=== PATIENT | male | born 1935 | race Caucasian/White ===

== ENCOUNTER 2022-05-31 11:41 | Inpatient (IN) ==
[2022-05-31 12:44] LABS: Basophils # (auto) 0.04 K/uL (0-0.2); Basophils % (auto) 0.6 %; Eosinophils # (auto) 0.08 K/uL (0-0.50); Eosinophils % (auto) 1.2 %; Hematocrit (blood only) 36.6 % (40.1-51.0); Hemoglobin 12.2 g/dl (14.0-18.0); Immature Granulocytes # (auto) 0.07 K/uL (0.00-0.02); Mean Corpuscular Hemoglobin 31.2 pg (25.0-34.0); Mean Corpuscular Hgb Conc 33.3 g/dL (32.0-36.0); Mean Corpuscular Volume 93.6 fL (80.0-100.0); Mean Platelet Volume 10.2 fL (9.4-12.4); Monocytes # (auto) 0.48 K/uL (0.24-0.82); Monocytes % (auto) 6.9 %; Neutrophils # (auto) 5.35 K/uL (1.4-6.5); Neutrophils % (auto) 77.3 %; Platelet Count 255 K/uL (130-400); RDW Coefficient of Variation 14.3 % (11.5-14.5); RDW Standard Deviation 48.1 fL (36.4-46.3); Red Blood Count 3.91 M/uL (4.63-6.08); White Blood Count 6.92 K/ul (4.8-10.8)
--- NOTE | 2022-05-31 12:44 | XRay Report ---
XR foot LT min 3V routine CLINICAL HISTORY: heel wound. Assess for osteomyelitis. COMPARISON STUDY: None. FINDINGS: There is a 3 cm skin ulceration within the posterior heel. No underlying bony destruction t o suggest an osteomyelitis. Small plantar and posterior calcaneal spurs. Calcific densities at the di stal Achilles tendon and proximal plantar fascia which are likely chronic. No acute fracture or dislo cation within the left foot. The Lisfranc joint is intact. Mild degenerative changes are noted. IMPRESSION: 1. A 3 cm skin ulceration at the posterior heel. 2. No bony destruction to suggest an osteomyelitis. ACT 112: Negative or not required by law. Electronically signed by: Lefty Small M.D. 05/31/2022 12:42 PM
--- NOTE | 2022-05-31 13:06 | Electrocardiogram Report ---
Test Reason : Blood Pressure : / mmHG Vent. Rate : 098 BPM Atrial Rate : 119 BPM P-R Int : 000 ms QRS Dur : 078 ms QT Int : 352 ms P-R-T Axes : 000 -16 032 degrees QTc Int : 449 ms Poor data quality, interpretation may be adversely affected Atrial fibrillation Abnormal ECG No previous ECGs available Confirmed by Luiz Holbrook ([id number]) on 05/31/2022 1:06:11 PM Referred By: Confirmed By:Subhash Holbrook
--- NOTE | 2022-05-31 13:11 | Emergency Department Note ---
Impression & Plan Open wound of left heel, Atrial fibrillation with rapid ventricular response, COVID-19, Elevated troponin I level ED Provider Note Provider: Varghese Cortés MD DATE OF SERVICE: 05/31/2022 CHIEF COMPLAINT: Foot wound HISTORY OF PRESENT ILLNESS: Patient is a 87-year-old gentleman history of hype rtension and foot wound of the left heel presenting here today from home. EMS reports the patient has not been letting his daughter change his bandages to his left foot. Evidently was recently in a penitentiary that was closed and now living in town here with family. They report the patient had recent debridement or surgery on this left heel at the [facility] in [place]. Patient himself states that he was on antibiotics several weeks ago for this. Denies significant pain due to diabetic neuropathy. Patient states that he has not changed his dressings in several days. He states that his daughter has not been giving him the right medications at home particularly his quinapril. Patient states that he feels he needs to be placed. Denies significant chest pain or shortness of breath. No fevers reported. REVIEW OF SYSTEMS: A total of 10 review of systems was obtained and negative except as stated above in the HPI. PAST MEDICAL HISTORY: As noted above MEDICATIONS: Reviewed medication list with the patient SOCIAL HISTORY: Has been residing at home with his daughter PHYSICAL EXAM: GENERAL: alert and oriented in no acute distress on stretcher Head: normocephalic and atraumatic EYES: No injection, discharge or icterus. PERRL NECK: Trachea midline. Supple. ENT: Mucous membranes pink and moist. LUNGS: Airway patent. No retractions. Breath sounds clear HEART: Irregular regular tachycardic rate and rhythm. No chest wall tenderness ABDOMEN: Soft and non-tender, without guarding or rebound. SKIN: Acyanotic, warm, dry, without rashes EXTREMITIES: Without swelling, tenderness or deformity NEUROLOGICAL: No aphasia. No facial droop or slurred speech. Normal strength and tone in the extremities. Diminished sensation of bilateral legs below the knees. EKG: Atrial fibrillation [address] segment elevation with a QTC of 449. Baseline artifact but no clear ST depression. No priors available for comparison CONTINUOUS CARDIAC MONITORING: was ordered and showed a heart rate of 90s-120s bpm in atrial fibrillation Patient's laboratory studies and imaging reviewed. Differential includes Cellulitis, abscess, MRSA infection, DVT, necrotizing fasciitis, cardiac etiology, pulmonary etiology, as well as other pathologies. IMPRESSION/MEDICAL DECISION MAKING: Service culture from left heel wound was taken and cleaned with ChloraPrep and bandaged again. X-ray of the area per radiology does not show evidence of osteomyelitis. Basic labs including inflammatory markers were sent. Patient incidentally noted to be in atrial fibrillation with some RVR. Patient denies a history of this and does not appear to be on any rate control medications or anticoagulation. Given some IV metoprolol here. Patient incidentally is also noted be COVID-positive but not in any respiratory distress. Given dose of Zosyn for what appears to be some wound infection although its not horrible of the left foot. Mild inflammatory marker elevation of ESR and CRP. Troponin als o returned mildly elevated at 50 without priors for comparison. Again attempted rate control here as early as likely more demand and acute ACS. No available phone number for the daughter and patient does not want to return home with her and wants placed. Given his COVID with new onset atrial fibrillation as well as this foot wound feel that observation here with the need for placement would not be unreasonable given his care needs. Will defer anticoagulation to the inpatient team. DIAGNOSIS: Left heel wound infection, new onset atrial fibrillation RVR, COVID-19, elevated troponin DISPOSITION: Hospitalist will evaluate Patient was agreeable with this plan. Critical Care I have personally spent 33 minutes of critical care time in the direct management of this patient. This includes bedside care, interpretation of diagnostic studies, and testing, discussion with consultants, patient, and other required patient management activities. These 33 minutes is in excess of all separately billable procedures. Past Med/Surg History Medical History (Updated 05/31/22 @ 16:11 by Varghese Coréts M.D.) HTN (hypertension) Surgical History (Updated 05/31/22 @ 15:43 by REID Cartagena) Hx of bilateral hip replacements Social History Smoking Status: Never smoker Feels Safe at Home: Yes Allergies Allergies Allergy/AdvReac Type Severity Reaction Status Date / Time atorvastatin Allergy Unknown Unverified 05/31/22 14:45 Home Meds Home Medications Medication Instructions Recorded Confirmed Lactobacillus acidophilus 2 tab PO DAILY 05/31/22 05/31/22 amlodipine 2.5 mg tablet 2.5 mg PO DAILY 05/31/22 05/31/22 aspirin 81 mg tablet,delayed 81 mg PO DAILY 05/31/22 05/31/22 release finasteride 5 mg tablet 5 mg PO HS 05/31/22 05/31/22 gabapentin 300 mg capsule 600 mg PO HS 05/31/22 05/31/22 metoprolol succinate 50 mg 50 mg PO BID 05/31/22 05/31/22 tablet,extended release 24 hr Results & Data (ED) Vital Signs Vital Signs - 24 hr 05/31/22 11:50 05/31/22 12:05 05/31/22 13:30 Temperature 36.7 C Temperature Source Oral Pulse Rate 121 H Pulse Rate [Apical] 108 H 96 H Pulse Rhythm Regular Pulse Rhythm [Apical] Irregular Pulse Strength Normal Pulse Strength [Apical] Normal Respiratory Rate 20 18 16 Respiratory Effort / Characteristics Non-Labored Spontaneous Non-Labored Spontaneous Non-Labored Respiratory Depth Normal Normal Normal Respiratory Pattern Regular Regular Blood Pressure 138/51 L Blood Pressure [Right Arm] 158/101 H 138/85 Blood Pressure Mean 80 Blood Pressure Mean [Right Arm] 120 102 Blood Pressure Position Sitting Blood Pressure Position [Right Arm] Semi-fowlers Pulse Oximetry 99 99 99 Oxygen Delivery Method Room Air Room Air Room Air Sepsis Recent Fever Within 48 Hours No Sepsis New/Unexplained Change in Mental Status N/A Sepsis Action Taken by Nursing No Action Required 05/31/22 13:00 05/31/22 12:30 Temperature Temperature Source Pulse Rate Pulse Rate [Apical] 98 H 100 H Pulse Rhythm Pulse Rhythm [Apical] Pulse Strength Pulse Strength [Apical] Respiratory Rate 16 16 Respiratory Effort / Characteristics Respiratory Depth Respiratory Pattern Blood Pressure Blood Pressure [Right Arm] 123/86 148/81 H Blood Pressure Mean Blood Pressure Mean [Right Arm] 98 103 Blood Pressure Position Blood Pressure Position [Right Arm] Pulse Oximetry 99 98 Oxygen Delivery Method Room Air Room Air Sepsis Recent Fever Within 48 Hours Sepsis New/Unexplained Change in Mental Status Sepsis Action Taken by Nursing Laboratory Data Result diagrams: 05/31/22 12:21 05/31/22 12:21 Lab Results 05/31/22 05/31/22 05/31/22 Range/Units 12:21 12:21 12:21 WBC 6.92 (4.8-10.8) K/ul RBC 3.91 L (4.63-6.08) M/uL Hgb 12.2 L (14.0-18.0) g/dl Hct 36.6 L (40.1-51.0) % MCV 93.6 (80.0-100.0) fL MCH 31.2 (25.0-34.0) pg MCHC 33.3 (32.0-36.0) g/dL RDW Std Deviation 48.1 H (36.4-46.3) fL RDW Coeff of Drake 14.3 (11.5-14.5) % Plt Count 255 (130-400) K/uL MPV 10.2 (9.4-12.4) fL Immature Gran % (Auto) 1.0 % Neut % (Auto) 77.3 % Lymph % (Auto) 13.0 % [place] % (Auto) 6.9 % Eos % (Auto) 1.2 % Baso % (Auto) 0.6 % Neut # (Auto) 5.35 (1.4-6.5) K/uL Lymph # (Auto) 0.90 L (1.2-3.4) K/uL [place] # (Auto) 0.48 (0.24-0.82) K/uL Eos # (Auto) 0.08 (0-0.50) K/uL Baso # (Auto) 0.04 (0-0.2) K/uL Immature Gran # (Auto) 0.07 H (0.00-0.02) K/uL ESR (0-20) mm/hr Sodium 138 (136-145) mmol/L Potassium 3.8 (3.5-5.1) mmol/L Chloride 106 (98-107) mmol/L Carbon Dioxide 27 (21-32) mmol/L Anion Gap 5 (3-11) BUN 25 H (6-23) mg/dl Creatinine 1.00 (0.6-1.4) mg/dl Est Cr Clr Drug Dosing 61.1 ml/min Est GFR ( Amer) 78.1 ml/min Est GFR (Non-Af Amer) 67.4 ml/min BUN/Creatinine Ratio 25.0 H (10-20) Glucose 119 H (70-99(Fasting)) mg/dl Lactate 1.7 (0.4-2.0) mmol/L Calcium 8.8 (8.5-10.1) mg/dl Total Bilirubin 0.5 (0.2-1.0) mg/dl AST 16 (13-39) U/L ALT 13 (7-52) U/L Alkaline Phosphatase 78 (34-104) U/L Troponin I High Sens (0-20) pg/ml C-Reactive Protein 1.34 H (0-0.5) mg/dl Total Protein 6.2 (6.0-8.3) gm/dl Albumin 3.2 L (3.4-5.0) gm/dl Globulin 3.0 (2.5-4.0) gm/dl Albumin/Globulin Ratio 1.1 (0.9-2) TSH (0.300-4.500) uIu/ml SARS-CoV-2, RNA, NAAT (NEGATIVE) 05/31/22 05/31/22 05/31/22 Range/Units 12:21 12:21 12:21 WBC (4.8-10.8) K/ul RBC (4.63-6.08) M/uL Hgb (14.0-18.0) g/dl Hct (40.1-51.0) % MCV (80.0-100.0) fL MCH (25.0-34.0) pg MCHC (32.0-36.0) g/dL RDW Std Deviation (36.4-46.3) fL RDW Coeff of Drake (11.5-14.5) % Plt Count (130-400) K/uL MPV (9.4-12.4) fL Immature Gran % (Auto) % Neut % (Auto) % Lymph % (Auto) % [place] % (Auto) % Eos % (Auto) % Baso % (Auto) % Neut # (Auto) (1.4-6.5) K/uL Lymph # (Auto) (1.2-3.4) K/uL [place] # (Auto) (0.24-0.82) K/uL Eos # (Auto) (0-0.50) K/uL Baso # (Auto) (0-0.2) K/uL Immature Gran # (Auto) (0.00-0.02) K/uL ESR 45 H (0-20) mm/hr Sodium (136-145) mmol/L Potassium (3.5-5.1) mmol/L Chloride (98-107) mmol/L Carbon Dioxide (21-32) mmol/L Anion Gap (3-11) BUN (6-23) mg/dl Creatinine (0.6-1.4) mg/dl Est Cr Clr Drug Dosing ml/min Est GFR ( Amer) ml/min Est GFR (Non-Af Amer) ml/min BUN/Creatinine Ratio (10-20) Glucose (70-99(Fasting)) mg/dl Lactate (0.4-2.0) mmol/L Calcium (8.5-10.1) mg/dl Total Bilirubin (0.2-1.0) mg/dl AST (13-39) U/L ALT (7-52) U/L Alkaline Phosphatase (34-104) U/L Troponin I High Sens 50.1 H* (0-20) pg/ml C-Reactive Protein (0-0.5) mg/dl Total Protein (6.0-8.3) gm/dl Albumin (3.4-5.0) gm/dl Globulin (2.5-4.0) gm/dl Albumin/Globulin Ratio (0.9-2) TSH 1.197 (0.300-4.500) uIu/ml SARS-CoV-2, RNA, NAAT (NEGATIVE) 05/31/22 Range/Units 12:30 WBC (4.8-10.8) K/ul RBC (4.63-6.08) M/uL Hgb (14.0-18.0) g/dl Hct (40.1-51.0) % MCV (80.0-100.0) fL MCH (25.0-34.0) pg MCHC (32.0-36.0) g/dL RDW Std Deviation (36.4-46.3) fL RDW Coeff of Drake (11.5-14.5) % Plt Count (130-400) K/uL MPV (9.4-12.4) fL Immature Gran % (Auto) % Neut % (Auto) % Lymph % (Auto) % [place] % (Auto) % Eos % (Auto) % Baso % (Auto) % Neut # (Auto) (1.4-6.5) K/uL Lymph # (Auto) (1.2-3.4) K/uL [place] # (Auto) (0.24-0.82) K/uL Eos # (Auto) (0-0.50) K/uL Baso # (Auto) (0-0.2) K/uL Immature Gran # (Auto) (0.00-0.02) K/uL ESR (0-20) mm/hr Sodium (136-145) mmol/L Potassium (3.5-5.1) mmol/L Chloride (98-107) mmol/L Carbon Dioxide (21-32) mmol/L Anion Gap (3-11) BUN (6-23) mg/dl Creatinine (0.6-1.4) mg/dl Est Cr Clr Drug Dosing ml/min Est GFR ( Amer) ml/min Est GFR (Non-Af Amer) ml/min BUN/Creatinine Ratio (10-20) Glucose (70-99(Fasting)) mg/dl Lactate (0.4-2.0) mmol/L Calcium (8.5-10.1) mg/dl Total Bilirubin (0.2-1.0) mg/dl AST (13-39) U/L ALT (7-52) U/L Alkaline Phosphatase (34-104) U/L Troponin I High Sens (0-20) pg/ml C-Reactive Protein (0-0.5) mg/dl Total Protein (6.0-8.3) gm/dl Albumin (3.4-5.0) gm/dl Globulin (2.5-4.0) gm/dl Albumin/Globulin Ratio (0.9-2) TSH (0.300-4.500) uIu/ml SARS-CoV-2, RNA, NAAT POSITIVE A* (NEGATIVE) Administered Medications Discontinued Medications Piperacillin Sod/Tazobactam Sod (Zosyn) 4.5 gm in 120 mls @ 240 mls/hr IV NOW ONE Stop: 05/31/22 13:42 Last Infusion: 05/31/22 15:09 Dose: 0 mls/hr Documented By: Admin: 05/31/22 14:17 Dose: 240 mls/hr Documented By: MYKE Metoprolol Tartrate (Metoprolol Tartrate 1 Mg/Ml Vial) 5 mg IV NOW STA Stop: 05/31/22 13:14 Last Admin: 05/31/22 14:16 Dose: 5 mg Documented By: [facility] Imaging Data Radiologist's Impression: Foot X-Ray 05/31/22 12:03 XR foot LT min 3V routine CLINICAL HISTORY: heel wound. Assess for osteomyelitis. COMPARISON STUDY: None. FINDINGS: There is a 3 cm skin ulceration within the posterior heel. No underlying bony destruction to suggest an osteomyelitis. Small plantar and posterior calcaneal spurs. Calcific densities at the distal Achilles tendon and proximal plantar fascia which are likely chronic. No acute fracture or dislocation within the left foot. The Lisfranc joint is intact. Mild degenerative changes are noted. IMPRESSION: 1. A 3 cm skin ulceration at the posterior heel. 2. No bony destruction to suggest an osteomyelitis. ACT 112: Negative or not required by law. Electronically signed by: Lefty Small M.D. 05/31/2022 12:42 PM Discharge Plan Visit Data Chief Complaint: Wound Stated Complaint: WOUND ON HEEL ED Provider: Varghese Cortés Discharge Problem: Open wound of left heel, Atrial fibrillation with rapid ventricular response, COVID-19, Elevated troponin I level Patient Disposition: Admitted As Inpatient Discharge Instructions Interventions: ED Discharge Assessment Last Done: 05/31/22 15:05
[2022-05-31] MEDS ORDERED: METOPROLOL TARTRATE 1 MG/ML VIAL IV STA (13:13)
[2022-05-31] MEDS ORDERED: PIPERACILLIN/TAZOBACTAM 4.5 GM/120 ML BAG IV ONE (13:13)
[2022-05-31 13:15] LABS: Albumin Globulin Ratio 1.1 (0.9-2); Albumin Level 3.2 gm/dl (3.4-5.0); Bilirubin,Total 0.5 mg/dl (0.2-1.0); C Reactive Protein 1.34 mg/dl (0-0.5); Calcium 8.8 mg/dl (8.5-10.1); Creatinine Clr Calc Pharmacy 61.1 ml/min; Est GFR (African American) 78.1 ml/min; Est GFR (Non-African American) 67.4 ml/min; Potassium 3.8 mmol/L (3.5-5.1); Total Protein 6.2 gm/dl (6.0-8.3)
[2022-05-31] MEDS ORDERED: HEPARIN SODIUM/DEXTROSE 25,000 UNITS/500 ML BAG IV SCH (15:08)
[2022-05-31] MEDS ORDERED: HEPARIN SOD (PORCINE) 1000 UNIT/ML IV ONE (15:08)
[2022-05-31] MEDS ORDERED: Heparin IV Adult Wt-Based Standard WITH Bolus Protocol IV SCH (15:12)
--- NOTE | 2022-05-31 15:49 | History & Physical Report ---
Date of Service May 31, 2022 Assessment & Plan (1) Atrial fibrillation with rapid ventricular response: Plan: Admit to telemetry Patient recently admitted to [facility] and was discharged to be cared for by his daughter who lives locally. Records requested from [facility] and [facility] where patient received care prior to going to [facility]. Patient states he does not like staying with his daughter and wants to go to a m[facility] to be closer to his in [place], [place]. In the ED, patient found to be in A. fib with RVR. No prior history of. Received metoprolol 5 mg IV in the ED. Patient prescribed metoprolol succinate 50 mg twice daily, unclear if he has been taking. Will change to metoprolol tartrate 25 mg q6h and titrate accordingly. [id number] score 3, will start IV heparin Echo Cardio consult (2) Open wound of left heel: Plan: Per the staff at [facility], patient had a left heel wound while at their facility Patient states he had an MRI of his left heel a couple of weeks ago through the [facility] - records requested. Seems to have had a debridement done last week at the [facility]. No signs of osteo on XR today Wound does not appear to be infected, patient is afebrile, no leukocytosis Received IV Zosyn in the ED, will continue with IV cefazolin for now Obtain culture Podiatry and wound care nurse consult (3) COVID-19: Plan: Per the staff at [facility], patient tested positive for COVID-19 on 05/06 however this was via rapid in-house test. No documented lab result available. Patient continues to test positive for COVID-19 today, currently asymptomatic (4) Elevated troponin I level: Plan: HS trop 50.1 Likely due to demand ischemia from A. fib RVR No reports of chest pain EKG does not show any acute ST changes Continue to trend (5) HTN (hypertension): Plan: BP controlled, continue amlodipine Metoprolol as above (6) Neuropathy: Plan: Continue gabapentin Per the staff at [facility], patient was undergoing nerve conduction studies to evaluate for his nonambulatory state Records requested (7) DVT prophylaxis: Plan: On IV heparin (8) Discharge planning issues: Plan: Patient recently admitted to [facility] after being admitted to [facility]. Previous care was obtained through the [facility]. Records have been requested. Patient was discharged from [facility] to be cared for by his daughter who lives locally. She did not accompany the patient to the ED today and no phone number has been provided. Patient states that his , Sabrina, lives in [facility]. Phone number [phone]. I attempted to call her however there was no answer. Patient states that he would like to return to a m[facility] closer to his . I contacted [facility] to obtain history and they stated that they likely would be able to accept the patient back to their facility. Admission coordinator is Ana Pagan, extension [phone]. Admission and Anticipated Discharge Date Admission Date: May 31, 2022 History of Present Illness Chief Complaint: Left heel wound Primary Care Provider: HUMBERTO PCP 87 year old male with PMH HTN, bedbound status, neuropathy, left heel wound, BPH, and other problems listed below who presents to the ED with left heel wound. There are no outpatient records available to me at this time. According to the patient, he was admitted to [facility] due to inability to care for himself. I spoke to the staff at [facility] who stated the patient was bedbound and lift dependent. He was being worked up for neuropathy of the lower extremities as a cause for his ambulatory dysfunction. He also had a left heel wound while he was there and was being seen by wound care. The plan was to transition the patient to long-term care at [facility] however patient's daughter arrived on 05/10 and stated that she wanted to take the patient home with her to care for him. The staff at [facility] state that the patient tested positive for COVID-19 on 05/06 via rapid test. Patient states that he does not like staying with his daughter. He would like to go back to a mcf[facility] that is closer to his who is in [facility]. It seems as though patient had debridement of his left heel wound at the [facility] last week. Patient was placed on a course of antibiotics however patient reports that he made him nauseous, therefore they were discontinued. Patient especially offers no complaints today. He denies chest pain, palpitations, shortness of breath. No lightheadedness, dizziness, diaphoresis, syncopal events. He denies abdominal pain, nausea, vomiting, diarrhea. No fevers or chills. Denies urinary symptoms. In the ED, patient was found to be in atrial fibrillation with RVR. Labs show HS troponin 50.1, otherwise unremarkable. Patient tested positive for COVID-19. No signs of osteomyelitis on left heel x-ray. Patient was given IV metoprolol 5 mg, IV Zosyn. Allergies Allergy/AdvReac Type Severity Reaction Status Date / Time atorvastatin Allergy Unknown Unverified 05/31/22 14:45 Home Medications Medication Instructions Recorded Confirmed Type Lactobacillus acidophilus 2 tab PO DAILY 05/31/22 05/31/22 History amlodipine 2.5 mg tablet 2.5 mg PO DAILY 05/31/22 05/31/22 History aspirin 81 mg tablet,delayed 81 mg PO DAILY 05/31/22 05/31/22 History release finasteride 5 mg tablet 5 mg PO HS 05/31/22 05/31/22 History gabapentin 300 mg capsule 600 mg PO HS 05/31/22 05/31/22 History metoprolol succinate 50 mg 50 mg PO BID 05/31/22 05/31/22 History tablet,extended release 24 hr Past Med/Surg History Medical History HTN (hypertension) Neuropathy Surgical History Hx of bilateral hip replacements Family History (Updated 05/31/22 @ 16:26 by REID Cartagena) Mother Lymphoma Social History (Updated 05/31/22 @ 16:32 by REID Cartagena) Smoking Status: Never smoker Hx Alcohol Use: Yes Alcohol type: beer Alcohol Intake Frequency: Monthly or Less Feels Safe at Home: Yes Review of Systems Review of Systems: ROS per HPI, all other systems reviewed and negative Physical Exam Physical Exam: please refer to Dr. Espino's addendum for physical exam Results & Data Results & Data ([facility]) Vital Signs (Past 12 Hours) Vital Signs Temp Pulse Pulse Resp BP BP Pulse Ox 05/31/22 15:08 36.3 C L 115 H 18 149/91 H 98 05/31/22 14:16 117 H 132/92 05/31/22 14:15 117 H 20 132/92 99 05/31/22 12:30 100 H 16 148/81 H 98 05/31/22 13:00 98 H 16 123/86 99 05/31/22 13:30 96 H 16 138/85 99 05/31/22 12:05 108 H 18 158/101 H 99 05/31/22 11:50 36.7 C 121 H 20 138/51 L 99 O2 Del Method 05/31/22 15:08 Room Air 05/31/22 14:16 05/31/22 14:15 Room Air 05/31/22 12:30 Room Air 05/31/22 13:00 Room Air 05/31/22 13:30 Room Air 05/31/22 12:05 Room Air 05/31/22 11:50 Room Air Laboratory Results Short CBC 05/31/22 Range/Units 12:21 WBC 6.92 (4.8-10.8) K/ul Hgb 12.2 L (14.0-18.0) g/dl Hct 36.6 L (40.1-51.0) % Plt Count 255 (130-400) K/uL BMP 05/31/22 12:21 Sodium 138 Potassium 3.8 Chloride 106 Carbon Dioxide 27 BUN 25 H Creatinine 1.00 Glucose 119 H Calcium 8.8 Liver Function 05/31/22 Range/Units 12:21 Total Bilirubin 0.5 (0.2-1.0) mg/dl AST 16 (13-39) U/L ALT 13 (7-52) U/L Alkaline Phosphatase 78 (34-104) U/L Albumin 3.2 L (3.4-5.0) gm/dl Diagnostic Findings Foot X-Ray 05/31/22 12:03 XR foot LT min 3V routine CLINICAL HISTORY: heel wound. Assess for osteomyelitis. COMPARISON STUDY: None. FINDINGS: There is a 3 cm skin ulceration within the posterior heel. No underlying bony destruction to suggest an osteomyelitis. Small plantar and posterior calcaneal spurs. Calcific densities at the distal Achilles tendon and proximal plantar fascia which are likely chronic. No acute fracture or dislocation within the left foot. The Lisfranc joint is intact. Mild degenerative changes are noted. IMPRESSION: 1. A 3 cm skin ulceration at the posterior heel. 2. No bony destruction to suggest an osteomyelitis. ACT 112: Negative or not required by law. Electronically signed by: Lefty Small M.D. 05/31/2022 12:42 PM Code Status & VTE Plan VTE Prophylaxis Plan VTE Prophylaxis will be ordered: No Supervising Physician Co-Signing Physician Notes Attending addendum: The patient was seen and examined in telemetry unit and in the COVID room He denies any symptoms but tells me that he has been here for most likely placement and to go to a mcfp/rehab facility Did not have any complaint and no symptoms of chest pain, palpitation or shortness of breath No fever and or chills On examination No apparent distress at rest Hemodynamically stable but noted to have tachycardia of 115/min Chest-clear to auscultate bilaterally Heart-S1-S2, irregularly irregular Abdomen-benign Extremities-trace to no edema bilaterally but left heel has a deep wound about stage III with tissue that may need debridement 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
[2022-05-31] MEDS ORDERED: HEPARIN IV BOLUS 7,000 UNITS in SYRINGE 0 ML IV ONE (16:00)
[2022-05-31] MEDS ORDERED: MELATONIN 3 MG TAB PO PRN (19:54)
[2022-05-31] MEDS ORDERED: METOPROLOL TARTRATE 25 MG TAB PO SCH (20:00)
[2022-05-31] MEDS: ACETAMINOPHEN 325 MG TAB PO PRN (20:33)
[2022-05-31] MEDS: GABAPENTIN 600 MG TAB PO SCH (20:35)
[2022-05-31] MEDS: FINASTERIDE 5 MG TAB PO SCH (20:35)
[2022-05-31] MEDS: METOPROLOL TARTRATE 25 MG TAB PO SCH (20:36)
[2022-05-31] MEDS: ceFAZolin 1000MG 1,000 MG/7.5 ML SYR IV SCH (21:04)
[2022-05-31] MEDS ORDERED: MELATONIN 3 MG TAB PO ONE ×2 (23:36→23:48)
[2022-06-01 00:08] LABS: Partial Thromboplastin Ratio > 5.1
[2022-06-01 00:28] LABS: Partial Thromboplastin Time > 139.0 Seconds (21.0-31.0)
[2022-06-01] MEDS: METOPROLOL TARTRATE 25 MG TAB PO SCH ×2 (02:21→08:15)
[2022-06-01 04:26] LABS: Hematocrit (blood only) 34.6 % (40.1-51.0); Hemoglobin 11.2 g/dl (14.0-18.0); Mean Corpuscular Hemoglobin 30.6 pg (25.0-34.0); Mean Corpuscular Hgb Conc 32.4 g/dL (32.0-36.0); Mean Corpuscular Volume 94.5 fL (80.0-100.0); Mean Platelet Volume 9.9 fL (9.4-12.4); Platelet Count 221 K/uL (130-400); RDW Coefficient of Variation 14.2 % (11.5-14.5); RDW Standard Deviation 48.8 fL (36.4-46.3); Red Blood Count 3.66 M/uL (4.63-6.08); White Blood Count 6.42 K/ul (4.8-10.8)
[2022-06-01 04:47] LABS: BUN Creatinine Ratio 21.9 (10-20); Calcium 8.5 mg/dl (8.5-10.1); Creatinine Clr Calc Pharmacy 53.6 ml/min; Est GFR (African American) 66.6 ml/min; Est GFR (Non-African American) 57.5 ml/min
[2022-06-01 04:52] LABS: Partial Thromboplastin Time 55.5 Seconds (21.0-31.0)
[2022-06-01] MEDS: ceFAZolin 1000MG 1,000 MG/7.5 ML SYR IV SCH ×3 (05:05→21:04)
--- NOTE | 2022-06-01 07:26 | Electrocardiogram Report ---
Test Reason : Blood Pressure : / mmHG Vent. Rate : 071 BPM Atrial Rate : 340 BPM P-R Int : 000 ms QRS Dur : 082 ms QT Int : 424 ms P-R-T Axes : 000 -11 050 degrees QTc Int : 460 ms Atrial fibrillation Abnormal ECG Confirmed by Luiz Holbrook ([id number]) on 06/01/2022 7:25:50 AM Referred By: REFERRED SELF Confirmed By:Subhash Holbrook
[2022-06-01] MEDS: amLODIPine BESYLATE 5 MG TAB PO SCH (08:15)
[2022-06-01] MEDS ORDERED: MAGNESIUM HYDROXIDE SUSP 30 ML UDC PO ONE (08:45)
--- NOTE | 2022-06-01 10:04 | Cardiology Consultation ---
Date of Consultation June 01, 2022 Assessment & Plan (1) Atrial fibrillation with rapid ventricular response: (2) Open wound of left heel: (3) Elevated troponin I level: (4) Neuropathy: Plan It is uncertain as to the how long this patient has been in atrial fibrillation. It is also uncertain as to whether he was taking his metoprolol as an outpatient. In any case, I would place him back on metoprolol succinate 50 mg twice daily. His borderline elevation in the high-sensitivity troponin is most likely due to demand ischemia. I do not believe that this is ACS. I would recommend the patient be started on Eliquis at a reduced dose of 2.5 mg twice daily. I think it is best that we go with rate control and not rhythm control in this elderly gentleman. He also has a very strong desire to return to the residential in [place] and I think we should honor those wishes. His has a history of cardiac problems and has a interior design faculty member in [place] that he can follow-up with. History of Present Illness Attending Physician: Woodrow Espino MD History of Present Illness This is an 87-year-old male patient who has had some difficulty walking due to neuropathy and developed a ulcer of his heel. He was in a residential in [facility] where he lives with his elderly . He has lived there his whole life. He came to [place] to live with his daughter who agreed to take care of him until he was ready to matriculate home. According to the patient, he has had no prior history of heart disease. No history of myocardial infarction, angina, congestive heart failure or cardiac arrhythmias. Upon arrival to this hospital he was noted to be in atrial fibrillation with RVR. He was given metoprolol which promptly improved his heart rate. He was started on heparin and admitted to the hospital. There is some question as to whether the patient was taking his metoprolol as directed. It is also unknown how long he is actually been in the atrial fibrillation. He denies shortness of breath or chest pain. Echocardiogram completed yesterday while in atrial fibrillation the patient has dilation of both the right and left atrium. There is moderate mitral regurgitation with preserved left and right ventricular systolic function. Allergies Allergy/AdvReac Type Severity Reaction Status Date / Time atorvastatin Allergy Unknown Unverified 05/31/22 14:45 Home Medications Medication Instructions Recorded Confirmed Type Lactobacillus acidophilus 2 tab PO DAILY 05/31/22 05/31/22 History amlodipine 2.5 mg tablet 2.5 mg PO DAILY 05/31/22 05/31/22 History aspirin 81 mg tablet,delayed 81 mg PO DAILY 05/31/22 05/31/22 History release finasteride 5 mg tablet 5 mg PO HS 05/31/22 05/31/22 History gabapentin 300 mg capsule 600 mg PO HS 05/31/22 05/31/22 History metoprolol succinate 50 mg 50 mg PO BID 05/31/22 05/31/22 History tablet,extended release 24 hr Patient History Medical History HTN (hypertension) Neuropathy Surgical History Hx of bilateral hip replacements Family History Mother Lymphoma Social History Smoking Status: Unknown if ever smoked Hx Alcohol Use: Yes Alcohol type: beer Alcohol Intake Frequency: Monthly or Less Hx Substance Use: No Preferred Language: Sami Communication Ability: Effective Assistant In Nursing Required: No Beliefs That Will Affect Care: None Current Living Situation Comment: Lives with daughter but does not want to live with her anymore Feels Safe at Home: Yes Assistive Devices: Wheelchair Review of Systems Review of Systems: Review of Systems: See HPI for pertinent positives. All other 10 point review of systems are negative. Physical Exam Physical Exam: General: no acute distress and stated age Head: normocephalic, no masses, lesions, tenderness or abnormalities Eyes: conjunctiva are pink and non-injected, sclera clear Neck: supple, no adenopathy, no bruits, normal jugular venous pulse, no hepatojugular reflux Chest: normal shape and normal respiratory effort Lungs: clear to auscultation and percussion Cardiac Exam: - irregular rate & rhythm, no murmurs gallops or rubs - normal S1, normal S2 Pulses: 2(+) throughout Abdomen: abdomen soft, non-tender, no abnormal masses and no hepatosplenomegaly Musculoskeletal: no gait disturbance, no joint inflammation, no deforming arthritis Extremities: no edema and no cyanosis Neuro: grossly normal exam Results & Data ([facility]) Vital Signs (Past 12 Hours) Vital Signs Temp Pulse Pulse Resp BP Pulse Ox O2 Del Method 06/01/22 07:45 36.5 C 85 18 116/75 96 Room Air 06/01/22 07:26 70 06/01/22 02:31 36.5 C 83 18 109/66 95 Room Air 06/01/22 00:00 77 05/31/22 23:11 36.7 C 64 18 106/71 97 Room Air Laboratory Results Laboratory Results - last 24 hr 05/31/22 05/31/22 05/31/22 12:21 12:21 12:21 WBC 6.92 RBC 3.91 L Hgb 12.2 L Hct 36.6 L MCV 93.6 MCH 31.2 MCHC 33.3 RDW Std Deviation 48.1 H RDW Coeff of Drake 14.3 Plt Count 255 MPV 10.2 Immature Gran % (Auto) 1.0 Neut % (Auto) 77.3 Lymph % (Auto) 13.0 [place] % (Auto) 6.9 Eos % (Auto) 1.2 Baso % (Auto) 0.6 Neut # (Auto) 5.35 Lymph # (Auto) 0.90 L [place] # (Auto) 0.48 Eos # (Auto) 0.08 Baso # (Auto) 0.04 Immature Gran # (Auto) 0.07 H ESR APTT PTT Ratio Sodium 138 Potassium 3.8 Chloride 106 Carbon Dioxide 27 Anion Gap 5 BUN 25 H Creatinine 1.00 Est Cr Clr Drug Dosing 61.1 Est GFR ( Amer) 78.1 Est GFR (Non-Af Amer) 67.4 BUN/Creatinine Ratio 25.0 H Glucose 119 H Lactate 1.7 Calcium 8.8 Total Bilirubin 0.5 AST 16 ALT 13 Alkaline Phosphatase 78 Troponin I High Sens C-Reactive Protein 1.34 H Total Protein 6.2 Albumin 3.2 L Globulin 3.0 Albumin/Globulin Ratio 1.1 TSH SARS-CoV-2, RNA, NAAT 05/31/22 05/31/22 05/31/22 12:21 12:21 12:21 WBC RBC Hgb Hct MCV MCH MCHC RDW Std Deviation RDW Coeff of Drake Plt Count MPV Immature Gran % (Auto) Neut % (Auto) Lymph % (Auto) [place] % (Auto) Eos % (Auto) Baso % (Auto) Neut # (Auto) Lymph # (Auto) [place] # (Auto) Eos # (Auto) Baso # (Auto) Immature Gran # (Auto) ESR 45 H APTT PTT Ratio Sodium Potassium Chloride Carbon Dioxide Anion Gap BUN Creatinine Est Cr Clr Drug Dosing Est GFR ( Amer) Est GFR (Non-Af Amer) BUN/Creatinine Ratio Glucose Lactate Calcium Total Bilirubin AST ALT Alkaline Phosphatase Troponin I High Sens 50.1 H* C-Reactive Protein Total Protein Albumin Globulin Albumin/Globulin Ratio TSH 1.197 SARS-CoV-2, RNA, NAAT 05/31/22 05/31/22 05/31/22 12:30 17:52 23:31 WBC RBC Hgb Hct MCV MCH MCHC RDW Std Deviation RDW Coeff of Drake Plt Count MPV Immature Gran % (Auto) Neut % (Auto) Lymph % (Auto) [place] % (Auto) Eos % (Auto) Baso % (Auto) Neut # (Auto) Lymph # (Auto) [place] # (Auto) Eos # (Auto) Baso # (Auto) Immature Gran # (Auto) ESR APTT > 139.0 H* PTT Ratio > 5.1 Sodium Potassium Chloride Carbon Dioxide Anion Gap BUN Creatinine Est Cr Clr Drug Dosing Est GFR ( Amer) Est GFR (Non-Af Amer) BUN/Creatinine Ratio Glucose Lactate Calcium Total Bilirubin AST ALT Alkaline Phosphatase Troponin I High Sens 61.8 H* D C-Reactive Protein Total Protein Albumin Globulin Albumin/Globulin Ratio TSH SARS-CoV-2, RNA, NAAT POSITIVE A* 05/31/22 06/01/22 06/01/22 23:34 04:14 04:14 WBC 6.42 RBC 3.66 L Hgb 11.2 L Hct 34.6 L MCV 94.5 MCH 30.6 MCHC 32.4 RDW Std Deviation 48.8 H RDW Coeff of Drake 14.2 Plt Count 221 MPV 9.9 Immature Gran % (Auto) Neut % (Auto) Lymph % (Auto) [place] % (Auto) Eos % (Auto) Baso % (Auto) Neut # (Auto) Lymph # (Auto) [place] # (Auto) Eos # (Auto) Baso # (Auto) Immature Gran # (Auto) ESR APTT PTT Ratio Sodium 137 Potassium 4.0 Chloride 106 Carbon Dioxide 28 Anion Gap 3 BUN 25 H Creatinine 1.14 Est Cr Clr Drug Dosing 53.6 Est GFR ( Amer) 66.6 Est GFR (Non-Af Amer) 57.5 BUN/Creatinine Ratio 21.9 H Glucose 100 H Lactate Calcium 8.5 Total Bilirubin AST ALT Alkaline Phosphatase Troponin I High Sens 56.8 H* C-Reactive Protein Total Protein Albumin Globulin Albumin/Globulin Ratio TSH SARS-CoV-2, RNA, NAAT 06/01/22 04:14 WBC RBC Hgb Hct MCV MCH MCHC RDW Std Deviation RDW Coeff of Drake Plt Count MPV Immature Gran % (Auto) Neut % (Auto) Lymph % (Auto) [place] % (Auto) Eos % (Auto) Baso % (Auto) Neut # (Auto) Lymph # (Auto) [place] # (Auto) Eos # (Auto) Baso # (Auto) Immature Gran # (Auto) ESR APTT 55.5 H* PTT Ratio 2.0 Sodium Potassium Chloride Carbon Dioxide Anion Gap BUN Creatinine Est Cr Clr Drug Dosing Est GFR ( Amer) Est GFR (Non-Af Amer) BUN/Creatinine Ratio Glucose Lactate Calcium Total Bilirubin AST ALT Alkaline Phosphatase Troponin I High Sens C-Reactive Protein Total Protein Albumin Globulin Albumin/Globulin Ratio TSH SARS-CoV-2, RNA, NAAT Medications Administered Current Inpatient Medications Acetaminophen (Acetaminophen 325 Mg Tab) 650 mg PO Q4H PRN PRN Reason: Pain or Fever Stop: 06/30/22 15:07 Last Admin: 05/31/22 20:33 Dose: 650 mg Amlodipine Besylate (Amlodipine Besylate 5 Mg Tab) 2.5 mg PO DAILY [facility] Stop: 07/01/22 08:59 Last Admin: 06/01/22 08:15 Dose: 2.5 mg Finasteride (Finasteride 5 Mg Tab) 5 mg PO HS [facility] Stop: 06/30/22 20:59 Last Admin: 05/31/22 20:35 Dose: 5 mg Gabapentin (Gabapentin 600 Mg Tab) 600 mg PO HS [facility] Stop: 06/30/22 20:59 Last Admin: 05/31/22 20:35 Dose: 600 mg Cefazolin Sodium (Ancef 1000mg) 1,000 mg in 7.5 mls @ 2.5 mls/min IV Q8H [facility] Stop: 06/07/22 21:59 Last Admin: 06/01/22 05:05 Dose: 2.5 mls/min Heparin Sodium/Dextrose (Heparin Sodium/Dextrose) 25,000 units in 500 mls @ 22 mls/hr IV .[id number] [facility]; Protocol Stop: 06/30/22 15:07 Last Titration: 06/01/22 05:00 Dose: 1,100 units/hr, 22 mls/hr Melatonin (Melatonin 3 Mg Tab) 6 mg PO HS PRN PRN Reason: Sleep Stop: 06/30/22 19:53 Metoprolol Succinate (Metoprolol Succ 50mg Ext Rel Tab) 50 mg PO BID [facility] Stop: 07/01/22 20:59 Psyllium Hydrophilic Mucilloid (Psyllium Or Guar Gum Fiber Powder Packet) 1 pkt PO QAM [facility] Stop: 07/01/22 08:59 (1) Open wound of left heel Encounter type: initial encounter Qualified Code(s): S91.302A - Unspecified open wound, left foot, initial encounter
[2022-06-01] MEDS: PSYLLIUM or GUAR GUM FIBER POWDER PACKET PO SCH (10:32)
[2022-06-01] MEDS ORDERED: APIXABAN 2.5 MG TAB PO SCH (11:00)
--- NOTE | 2022-06-01 12:43 | Orthopedic Consultation ---
Date of Consultation June 01, 2022 Assessment & Plan (1) Open wound of left heel: Patient seen, evaluated, and treated. X-rays reviewed showing no involvement. I examined the patient for an ulcer that has been resistant. A thorough evaluation of the wound was done in detail. The left and right heel were note currently off loaded upon examination. Manners in which pressure reduction could be achieved were investigated and initiated. Off-loading is a critical part of this patient's management. I did order an ortho wedge off loading device and will be delivered from OR per nursing. A pillow was placed under legs until arrival. After evaluation of the patient and wound status and characteristics, it was decided that the wound would be debrided. Please see procedure note. To offload or remove pressure to the wound is essential. Foam dressing applied. German ordered for daily application with dressing changes. Today's procedure is an excisional debridement of deep tissue. There is a moderate amount of serosanguineous exudate draining from the ulcer. The ulcer base is described as containing has pink granulation. Necrotic or devitalized tissue is estimated to be present in approximately 40% of the pressure ulcer bed. The ulcer has been exposed full-thickness tissue. I have informed the patient of the risks and benefit of this procedure and they have had the opportunity to ask questions. Appropriate consent has been obtained. The patient refused site marking. The area was prepped and draped in usual aseptic manner. The procedure was performed and a clean field. I debrided the wound sharply with a sterile #15 blade and necrotic tissue was excised down to and including subcutaneous tissue. Bleeding was minimal and hemostasis was achieved using pressure. The patient tolerated procedure and anesthesia well. The patient was educated regarding the signs and symptoms of infection, such as purulent drainage, edema, cellulitis, and significant pain, and to notify healthcare personnel for any of these things occur. Postprocedure no increased pain. (2) Neuropathy: History of Present Illness Attending Physician: Woodrow Espino MD History of Present Illness Patient is a pleasant, covid (+), 87 year old male seen lying comfortably in bed. Patient PMH positive for HTN, bedbound status, neuropathy, left heel wound, BPH. Patient was seen in [facility] ED for worsening left heel wound yesterday. Patient social history obtained from admitting notes. He was recently transferred from [facility], to stay with his daughter locally who did not accompany Patient to ED and has been unavailable to reach via phone. Patient was being worked up for neuropathy of the lower extremities as a cause for his ambulatory dysfunction. Patient states he had debridement of his left heel wound at the [facility] last week. Patient was placed on a course of antibiotics however patient reports that he made him nauseous, therefore they were discontinued. Patient received IV Zosyn in the ED, then tranisitioned to IV cefazolin. Awaiting wound culture results. No signs of osteomyelitis on left heel x-ray. Allergies Allergy/AdvReac Type Severity Reaction Status Date / Time atorvastatin Allergy Unknown Unverified 05/31/22 14:45 Home Medications Medication Instructions Recorded Confirmed Type Lactobacillus acidophilus 2 tab PO DAILY 05/31/22 05/31/22 History amlodipine 2.5 mg tablet 2.5 mg PO DAILY 05/31/22 05/31/22 History aspirin 81 mg tablet,delayed 81 mg PO DAILY 05/31/22 05/31/22 History release finasteride 5 mg tablet 5 mg PO HS 05/31/22 05/31/22 History gabapentin 300 mg capsule 600 mg PO HS 05/31/22 05/31/22 History metoprolol succinate 50 mg 50 mg PO BID 05/31/22 05/31/22 History tablet,extended release 24 hr Patient History Medical History HTN (hypertension) Neuropathy Surgical History Hx of bilateral hip replacements Family History Mother Lymphoma Social History Smoking Status: Unknown if ever smoked Hx Alcohol Use: Yes Alcohol type: beer Alcohol Intake Frequency: Monthly or Less Hx Substance Use: No Preferred Language: Polish Communication Ability: Effective Senior Analyst Programmer Required: No Beliefs That Will Affect Care: None Current Living Situation Comment: Lives with daughter but does not want to live with her anymore Feels Safe at Home: Yes Assistive Devices: Wheelchair Review of Systems Review of Systems: All systems reviewed & are unremarkable except as noted in HPI & below Physical Exam Physical Exam: INTEGUMENT: Atrophic changes noted to legs and feet. No signs or symptoms of infection were noted or reported. VASCULAR: Capillary refill time within normal limits. Absence of leg and pedal hair. Proximal distal cooling within normal limits. MUSCULOSKELETAL: No gross deformity. Digital contractures 2 through 5 adductovarus fifth toes. NEUROLOGIC: Absent epicritic sensation CONSTITUTIONAL: Patient denies constitutional symptoms PSYCH: Normal affect and demeanor Focused Exam: Wound location: Left retro calcaneal heel Wound base color and depth: Full thickness into subcutaneous tissue Wound size (cm): roughly 4.5 x 4.5 x 0.5 cm Odor: no malodor Drainage: moderate serous Undermining: none Borders: slightly macerated Results & Data ([facility]) Vital Signs (Past 12 Hours) Vital Signs Temp Pulse Pulse Resp BP Pulse Ox O2 Del Method 06/01/22 11:40 36.4 C L 77 18 111/68 99 Room Air 06/01/22 07:45 36.5 C 85 18 116/75 96 Room Air 06/01/22 07:26 70 06/01/22 02:31 36.5 C 83 18 109/66 95 Room Air (1) Open wound of left heel Encounter type: initial encounter Qualified Code(s): S91.302A - Unspecified open wound, left foot, initial encounter
--- NOTE | 2022-06-01 14:28 | Hospitalist Progress Note ---
Date of Service June 01, 2022 Assessment & Plan (1) Atrial fibrillation with rapid ventricular response: Plan: Admit to telemetry Patient recently admitted to [facility] [place] and was discharged to be cared for by his daughter who lives locally. Records requested from [facility] and [facility] where patient received care prior to going to [facility]. Patient states he does not like staying with his daughter and wants to go to a longterm to be closer to his in [place], [place]. In the ED, patient found to be in A. fib with RVR. No prior history of. Received metoprolol 5 mg IV in the ED. Patient prescribed metoprolol succinate 50 mg twice daily, unclear if he has been taking. Will change to metoprolol tartrate 25 mg q6h and titrate accordingly. [id number] score 3, will start IV heparin Echo of the heart showedLV is normal in size with normal systolic function. EF 50 to 55%, RV systolic function is normal, left atrium is moderately dilated, right atrium is moderately dilated, and there is moderate mitral regurgitation Patient denies any symptoms of palpitation and/or chest pain Appreciate cardiology input and recommendation We will continue with beta-teri and will give Eliquis on discharge (2) Open wound of left heel: Plan: Per the staff at [facility], patient had a left heel wound while at their facility Patient states he had an MRI of his left heel a couple of weeks ago through the [facility] - records requested. Seems to have had a debridement done last week at the [facility]. No signs of osteo on XR today Wound does not appear to be infected, patient is afebrile, no leukocytosis Received IV Zosyn in the ED, will continue with IV cefazolin for now Obtain culture Podiatry and wound care nurse consult Does not seems to be spreading infection (3) COVID-19: Plan: Per the staff at [facility], patient tested positive for COVID-19 on 05/06 however this was via rapid in-house test. No documented lab result available. Patient continues to test positive for COVID-19 today, currently asymptomatic No COVID treatment is required and the patient remains totally asymptomatic (4) Elevated troponin I level: Plan: HS trop 50.1 Likely due to demand ischemia from A. fib RVR No reports of chest pain EKG does not show any acute ST changes Continue to trend-no ACS Elevated troponin due to demand ischemia (5) HTN (hypertension): Plan: BP controlled, continue amlodipine Metoprolol as above (6) Neuropathy: Plan: Continue gabapentin Per the staff at [facility], patient was undergoing nerve conduction studies to evaluate for his nonambulatory state Records requested (7) DVT prophylaxis: Plan: On IV heparin (8) Discharge planning issues: Plan: Patient recently admitted to [facility] [place] after being admitted to [facility]. Previous care was obtained through the [facility]. Records have been requested. Patient was discharged from [facility] to be cared for by his daughter who lives locally. She did not accompany the patient to the ED today and no phone number has been provided. Patient states that his , Sabrina, lives in [facility]. Phone number [phone]. I attempted to call her however there was no answer. Patient states that he would like to return to a longterm closer to his . I contacted the [facility] [place] to obtain history and they stated that they likely would be able to accept the patient back to their facility. Admission coordinator is Ana Pagan, extension [phone]. Admission and Anticipated Discharge Date Admission Date: May 31, 2022 Subjective 06/01/2022 The patient was seen and examined in telemetry unit and in the COVID room He remains stable and denies any symptoms He wants to go to longterm Review of Systems Review of Systems: All systems reviewed and are unremarkable except as noted below Physical Exam Physical Exam: Lying in bed comfortable Constitutional: well developed, well nourished and + obese; not ill appearing ENMT: external ear and nose normal, oropharynx normal Neck: trachea midline, no thyromegaly Respiratory: no respiratory distress Auscultation: lungs clear to auscultation bilaterally Cardiovascular: Rate/Rhythm: + irregularly irregular; not tachycardic Heart Sounds: normal S1 and normal S2; no murmur Extremities: no edema Gastrointestinal (Abdomen): Inspection/Auscultation: normal bowel sounds; abdomen not distended Percussion/Palpation: abdomen soft; abdomen nontender Musculoskeletal: No acute arthritis in any joint Neurologic: Alert, awake and oriented x3 Results & Data Results & Data ([facility]) Vital Signs (Past 12 Hours) Vital Signs Temp Pulse Pulse Resp BP Pulse Ox O2 Del Method 06/01/22 11:40 36.4 C L 77 18 111/68 99 Room Air 06/01/22 07:45 36.5 C 85 18 116/75 96 Room Air 06/01/22 07:26 70 06/01/22 02:31 36.5 C 83 18 109/66 95 Room Air Laboratory Results Short CBC 06/01/22 Range/Units 04:14 WBC 6.42 (4.8-10.8) K/ul Hgb 11.2 L (14.0-18.0) g/dl Hct 34.6 L (40.1-51.0) % Plt Count 221 (130-400) K/uL BMP 06/01/22 04:14 Sodium 137 Potassium 4.0 Chloride 106 Carbon Dioxide 28 BUN 25 H Creatinine 1.14 Glucose 100 H Calcium 8.5 Medications Administered Current Inpatient Medications Acetaminophen (Acetaminophen 325 Mg Tab) 650 mg PO Q4H PRN PRN Reason: Pain or Fever Stop: 06/30/22 15:07 Last Admin: 05/31/22 20:33 Dose: 650 mg Amlodipine Besylate (Amlodipine Besylate 5 Mg Tab) 2.5 mg PO DAILY [facility] Stop: 07/01/22 08:59 Last Admin: 06/01/22 08:15 Dose: 2.5 mg Apixaban (Apixaban 2.5 Mg Tab) 2.5 mg PO BID [facility] Stop: 07/01/22 10:59 Last Admin: 06/01/22 11:53 Dose: 2.5 mg Finasteride (Finasteride 5 Mg Tab) 5 mg PO HS [facility] Stop: 06/30/22 20:59 Last Admin: 05/31/22 20:35 Dose: 5 mg Gabapentin (Gabapentin 600 Mg Tab) 600 mg PO HS [facility] Stop: 06/30/22 20:59 Last Admin: 05/31/22 20:35 Dose: 600 mg Cefazolin Sodium (Ancef 1000mg) 1,000 mg in 7.5 mls @ 2.5 mls/min IV Q8H [facility] Stop: 06/07/22 21:59 Last Admin: 06/01/22 13:52 Dose: 2.5 mls/min Melatonin (Melatonin 3 Mg Tab) 6 mg PO HS PRN PRN Reason: Sleep Stop: 06/30/22 19:53 Metoprolol Succinate (Metoprolol Succ 50mg Ext Rel Tab) 50 mg PO BID [facility] Stop: 07/01/22 20:59 Psyllium Hydrophilic Mucilloid (Psyllium Or Guar Gum Fiber Powder Packet) 1 pkt PO QAM [facility] Stop: 07/01/22 08:59 Last Admin: 06/01/22 10:32 Dose: 1 pkt (1) Open wound of left heel Encounter type: initial encounter Qualified Code(s): S91.302A - Unspecified open wound, left foot, initial encounter
[2022-06-01] MEDS: GABAPENTIN 600 MG TAB PO SCH (20:15)
[2022-06-01] MEDS: METOPROLOL SUCC 50MG EXT REL TAB PO SCH (20:15)
[2022-06-01] MEDS: FINASTERIDE 5 MG TAB PO SCH (20:16)
[2022-06-01] MEDS: APIXABAN 5 MG TABLET PO SCH (20:22)
[2022-06-01] MEDS: MELATONIN 3 MG TAB PO PRN (21:37)
[2022-06-01] MEDS: traMADol HCL 50 MG TABLET PO PRN (22:52)
[2022-06-02 06:00] LABS: Basophils # (auto) 0.04 K/uL (0-0.2); Basophils % (auto) 0.7 %; Eosinophils # (auto) 0.24 K/uL (0-0.50); Hematocrit (blood only) 35.8 % (40.1-51.0); Hemoglobin 11.8 g/dl (14.0-18.0); Immature Granulocytes # (auto) 0.08 K/uL (0.00-0.02); Immature Granulocytes % (auto) 1.3 %; Lymphocytes % (auto) 18.2 %; Mean Corpuscular Hemoglobin 31.2 pg (25.0-34.0); Mean Corpuscular Volume 94.7 fL (80.0-100.0); Mean Platelet Volume 10.1 fL (9.4-12.4); Monocytes % (auto) 8.3 %; Neutrophils # (auto) 4.07 K/uL (1.4-6.5); Neutrophils % (auto) 67.5 %; Platelet Count 217 K/uL (130-400); RDW Coefficient of Variation 14.3 % (11.5-14.5); RDW Standard Deviation 48.9 fL (36.4-46.3); Red Blood Count 3.78 M/uL (4.63-6.08); White Blood Count 6.03 K/ul (4.8-10.8)
[2022-06-02 06:21] LABS: BUN Creatinine Ratio 23.8 (10-20); Calcium 8.7 mg/dl (8.5-10.1); Creatinine Clr Calc Pharmacy 58.1 ml/min; Est GFR (African American) 73.6 ml/min; Est GFR (Non-African American) 63.5 ml/min; Magnesium 1.9 mg/dl (1.7-2.4); Phosphorus 3.1 mg/dl (2.5-4.9); Potassium 4.2 mmol/L (3.5-5.1)
[2022-06-02] MEDS: ceFAZolin 1000MG 1,000 MG/7.5 ML SYR IV SCH ×3 (06:40→21:03)
[2022-06-02] MEDS: APIXABAN 5 MG TABLET PO SCH ×2 (08:37→20:21)
[2022-06-02] MEDS: METOPROLOL SUCC 50MG EXT REL TAB PO SCH ×2 (08:38→20:22)
[2022-06-02] MEDS: PSYLLIUM or GUAR GUM FIBER POWDER PACKET PO SCH (08:39)
[2022-06-02] MEDS: amLODIPine BESYLATE 5 MG TAB PO SCH (08:40)
--- NOTE | 2022-06-02 11:37 | Cardiology Progress Note ---
Date of Service June 02, 2022 Assessment & Plan (1) Atrial fibrillation with rapid ventricular response: (2) Open wound of left heel: (3) Elevated troponin I level: (4) Neuropathy: Plan It is uncertain as to the how long this patient has been in atrial fibrillation. It is also uncertain as to whether he was taking his metoprolol as an outpatient. In any case, I would place him back on metoprolol succinate 50 mg twice daily. His borderline elevation in the high-sensitivity troponin is most likely due to demand ischemia. I do not believe that this is ACS. I would recommend the patient be started on Eliquis at a reduced dose of 2.5 mg twice daily. I think it is best that we go with rate control and not rhythm control in this elderly gentleman. He also has a very strong desire to return to the halfway in [place] and I think we should honor those wishes. His has a history of cardiac problems and has a change agent in [place] that he can follow-up with. Plan as outlined above patient hemodynamically stable with good heart rate control Admission and Anticipated Discharge Date Admission Date: May 31, 2022 Subjective Chart telemetry and laboratory studies reviewed. Patient not personally examined to minimize COVID exposures Patient without cardiac complaint and heart rate much better controlled after adjustment in medications. Results & Data ([facility]) Vital Signs (Past 12 Hours) Vital Signs Temp Pulse Pulse Resp BP Pulse Ox O2 Del Method 06/02/22 06:07 74 06/02/22 08:08 36.7 C 72 18 109/69 94 Room Air 06/02/22 03:52 36.7 C 78 18 126/72 95 06/02/22 00:00 76 (1) Open wound of left heel Encounter type: initial encounter Qualified Code(s): S91.302A - Unspecified open wound, left foot, initial encounter
--- NOTE | 2022-06-02 13:08 | Hospitalist Progress Note ---
Date of Service June 02, 2022 Assessment & Plan (1) Atrial fibrillation with rapid ventricular response: Plan: Admit to telemetry Patient recently admitted to [facility] [place] and was discharged to be cared for by his daughter who lives locally. Records requested from [facility] and [facility] where patient received care prior to going to [facility]. Patient states he does not like staying with his daughter and wants to go to a mcc to be closer to his in [place], [place]. In the ED, patient found to be in A. fib with RVR. No prior history of. Received metoprolol 5 mg IV in the ED. Patient prescribed metoprolol succinate 50 mg twice daily, unclear if he has been taking. Will change to metoprolol tartrate 25 mg q6h and titrate accordingly. [id number] score 3, will start IV heparin Echo of the heart showedLV is normal in size with normal systolic function. EF 50 to 55%, RV systolic function is normal, left atrium is moderately dilated, right atrium is moderately dilated, and there is moderate mitral regurgitation Patient denies any symptoms of palpitation and/or chest pain Appreciate cardiology input and recommendation We will continue with beta-teri and will give Eliquis on discharge Heart rate remains stable without any cardiac symptoms (2) Open wound of left heel: Plan: Per the staff at [facility], patient had a left heel wound while at their facility Patient states he had an MRI of his left heel a couple of weeks ago through the [facility] - records requested. Seems to have had a debridement done last week at the [facility]. No signs of osteo on XR today Wound does not appear to be infected, patient is afebrile, no leukocytosis Received IV Zosyn in the ED, will continue with IV cefazolin for now Obtain culture Podiatry and wound care nurse consult Does not seems to be spreading infection (3) COVID-19: Plan: Per the staff at [facility], patient tested positive for COVID-19 on 05/06 however this was via rapid in-house test. No documented lab result available. Patient continues to test positive for COVID-19 today, currently asymptomatic No COVID treatment is required and the patient remains totally asymptomatic No shortness of breath and is saturating normally on room air (4) Elevated troponin I level: Plan: HS trop 50.1 Likely due to demand ischemia from A. fib RVR No reports of chest pain EKG does not show any acute ST changes Continue to trend-no ACS Elevated troponin due to demand ischemia (5) HTN (hypertension): Plan: BP controlled, continue amlodipine Metoprolol as above (6) Neuropathy: Plan: Continue gabapentin Per the staff at [facility], patient was undergoing nerve conduction studies to evaluate for his nonambulatory state Records requested (7) DVT prophylaxis: Plan: On IV heparin (8) Discharge planning issues: Plan: Patient recently admitted to the [facility] after being admitted to [facility]. Previous care was obtained through the [facility]. Records h ave been requested. Patient was discharged from [facility] to be cared for by his daughter who lives locally. She did not accompany the patient to the ED today and no phone number has been provided. Patient states that his , Sabrina, lives in [facility]. Phone number [phone]. I attempted to call her however there was no answer. Patient states that he would like to return to a mcc closer to his . I contacted [facility] [place] to obtain history and they stated that they likely would be able to accept the patient back to their facility. Admission coordinator is Ana Pagan, extension [phone]. Admission and Anticipated Discharge Date Admission Date: May 31, 2022 Subjective 06/01/2022 The patient was seen and examined in telemetry unit and in the COVID room He remains stable and denies any symptoms He wants to go to mcc 06/02/2022 The patient was seen and examined in telemetry unit and in the COVID room He denies any symptoms and has been waiting to be transferred to [facility] No fever and or chills, no shortness of breath or palpitation Review of Systems Review of Systems: All systems reviewed and are unremarkable except as noted below Physical Exam Physical Exam: Lying in bed comfortable Constitutional: well developed, well nourished and + obese; not ill appearing ENMT: external ear and nose normal, oropharynx normal Neck: trachea midline, no thyromegaly Respiratory: no respiratory distress Auscultation: lungs clear to auscultation bilaterally Cardiovascular: Rate/Rhythm: + irregularly irregular; not tachycardic Heart Sounds: normal S1 and normal S2; no murmur Extremities: no edema Gastrointestinal (Abdomen): Inspection/Auscultation: normal bowel sounds; abdomen not distended Percussion/Palpation: abdomen soft; abdomen nontender Musculoskeletal: No acute arthritis in any joint Neurologic: normal touch/pain/proprioception and moves all extremities; no focal motor deficits Lymphatic: no cervical or axillary lymphadenopathy Results & Data Results & Data ([facility]) Vital Signs (Past 12 Hours) Vital Signs Temp Pulse Pulse Resp BP Pulse Ox O2 Del Method 06/02/22 11:45 36.5 C 68 18 111/70 95 Room Air 06/02/22 06:07 74 06/02/22 08:08 36.7 C 72 18 109/69 94 Room Air 06/02/22 03:52 36.7 C 78 18 126/72 95 Laboratory Results Short CBC 06/02/22 Range/Units 05:39 WBC 6.03 (4.8-10.8) K/ul Hgb 11.8 L (14.0-18.0) g/dl Hct 35.8 L (40.1-51.0) % Plt Count 217 (130-400) K/uL BMP 06/02/22 05:39 Sodium 138 Potassium 4.2 Chloride 106 Carbon Dioxide 28 BUN 25 H Creatinine 1.05 Glucose 97 Calcium 8.7 Medications Administered Current Inpatient Medications Acetaminophen (Acetaminophen 325 Mg Tab) 650 mg PO Q4H PRN PRN Reason: Pain or Fever Stop: 06/30/22 15:07 Last Admin: 05/31/22 20:33 Dose: 650 mg Amlodipine Besylate (Amlodipine Besylate 5 Mg Tab) 2.5 mg PO DAILY LINDSEY Stop: 07/01/22 08:59 Last Admin: 06/02/22 08:40 Dose: 2.5 mg Apixaban (Apixaban 5 Mg Tablet) 5 mg PO BID LINDSEY Stop: 07/01/22 20:59 Last Admin: 06/02/22 08:37 Dose: 5 mg Finasteride (Finasteride 5 Mg Tab) 5 mg PO HS LINDSEY Stop: 06/30/22 20:59 Last Admin: 06/01/22 20:16 Dose: 5 mg Gabapentin (Gabapentin 600 Mg Tab) 600 mg PO HS LINDSEY Stop: 06/30/22 20:59 Last Admin: 06/01/22 20:15 Dose: 600 mg Cefazolin Sodium (Ancef 1000mg) 1,000 mg in 7.5 mls @ 2.5 mls/min IV Q8H LINDSEY Stop: 06/07/22 21:59 Last Admin: 06/02/22 13:00 Dose: 2.5 mls/min Melatonin (Melatonin 3 Mg Tab) 6 mg PO HS PRN PRN Reason: Sleep Stop: 06/30/22 19:53 Last Admin: 06/01/22 21:37 Dose: 6 mg Metoprolol Succinate (Metoprolol Succ 50mg Ext Rel Tab) 50 mg PO BID LINDSEY Stop: 07/01/22 20:59 Last Admin: 06/02/22 08:38 Dose: 50 mg Psyllium Hydrophilic Mucilloid (Psyllium Or Guar Gum Fiber Powder Packet) 1 pkt PO QAM LINDSEY Stop: 07/01/22 08:59 Last Admin: 06/02/22 08:39 Dose: Not Given Tramadol HCl (Tramadol Hcl 50 Mg Tablet) 50 mg PO Q8 PRN PRN Reason: pain Stop: 06/04/22 05:59 Last Admin: 06/01/22 22:52 Dose: 50 mg (1) Open wound of left heel Encounter type: initial encounter Qualified Code(s): S91.302A - Unspecified open wound, left foot, initial encounter
[2022-06-02] MEDS: FINASTERIDE 5 MG TAB PO SCH (20:21)
[2022-06-02] MEDS: GABAPENTIN 600 MG TAB PO SCH (20:22)
[2022-06-02] MEDS: COLLAGENASE OINT 30 GM TUBE EXT STA (21:00)
--- NOTE | 2022-06-02 21:08 | Orthopedic Progress Note ---
Date of Service June 02, 2022 Assessment & Plan (1) Open wound of left heel: Plan: Patient seen, evaluated, and treated. There was concern that off loading of wound is not being applied. Off-loading is a critical part of this patient's management. An extra pillow was placed under legs. I encouraged nursing to view Patient frequently to ensure heel not in contact with bed. To offload or remove pressure to the wound is essential. After evaluation of the patient and wound status and characteristics, it was decided that the wound would be debrided. Please see procedure note. Foam dressing applied. Santyl daily application dressing changes to be completed by nursing. Today's procedure is an excisional debridement of deep tissue. There is a moderate amount of serosanguineous exudate draining from the ulcer. The ulcer base is described as containing has pink granulation. Necrotic or devitalized tissue is estimated to be present in approximately 40% of the pressure ulcer bed. The ulcer has been exposed full-thickness tissue. I have informed the patient of the risks and benefit of this procedure and they have had the opportunity to ask questions. Appropriate consent has been obtained. The patient refused site marking. The area was prepped and draped in usual aseptic manner. The procedure was performed and a clean field. I debrided the wound sharply with a sterile #15 blade and necrotic tissue was excised down to and including subcutaneous tissue. Bleeding was minimal and hemostasis was achieved using pressure. The patient tolerated procedure and anesthesia well. The patient was educated regarding the signs and symptoms of infection, such as purulent drainage, edema, cellulitis, and significant pain, and to notify healthcare personnel for any of these things occur. Postprocedure no increased pain. (2) Neuropathy: Admission and Anticipated Discharge Date Admission Date: May 31, 2022 Subjective Patient is an 87 year old WM seen at bedside. He voices no complaints. His left heel wound is making contact with bed. Physical Exam Physical Exam: INTEGUMENT: Atrophic changes noted to legs and feet. No signs or symptoms of infection were noted or reported. VASCULAR: Capillary refill time within normal limits. Absence of leg and pedal hair. Proximal distal cooling within normal limits. MUSCULOSKELETAL: No gross deformity. Digital contractures 2 through 5 adductovarus fifth toes. NEUROLOGIC: Absent epicritic sensation CONSTITUTIONAL: Patient denies constitutional symptoms PSYCH: Normal affect and demeanor Focused Exam: Wound location: Left retro calcaneal heel Wound base color and depth: Full thickness into subcutaneous tissue Wound size (cm): roughly 4.5 x 4.5 x 0.5 cm Odor: no malodor Drainage: moderate serous Undermining: none Borders: slightly macerated Results & Data ([facility]) Vital Signs (Past 12 Hours) Vital Signs Temp Pulse Pulse Resp BP Pulse Ox O2 Del Method 06/02/22 19:38 36.8 C 78 18 124/77 98 Room Air 06/02/22 16:28 37.0 C 78 18 109/62 94 Room Air 06/02/22 14:31 78 06/02/22 11:45 36.5 C 68 18 111/70 95 Room Air (1) Open wound of left heel Encounter type: initial encounter Qualified Code(s): S91.302A - Unspecified open wound, left foot, initial encounter
[2022-06-02] MEDS: traMADol HCL 50 MG TABLET PO PRN (22:24)
[2022-06-02] MEDS: MELATONIN 3 MG TAB PO PRN (22:25)
[2022-06-03] MEDS: ceFAZolin 1000MG 1,000 MG/7.5 ML SYR IV SCH (05:05)
[2022-06-03] MEDS ORDERED: COLLAGENASE OINT 30 GM TUBE EXT ONE (09:00)
[2022-06-03] MEDS: METOPROLOL SUCC 50MG EXT REL TAB PO SCH ×2 (09:18→20:32)
[2022-06-03] MEDS: APIXABAN 5 MG TABLET PO SCH ×2 (09:18→20:31)
[2022-06-03] MEDS: PSYLLIUM or GUAR GUM FIBER POWDER PACKET PO SCH (09:18)
[2022-06-03] MEDS: amLODIPine BESYLATE 5 MG TAB PO SCH (09:18)
[2022-06-03] MEDS: COLLAGENASE OINT 30 GM TUBE EXT STA (09:33)
[2022-06-03] MEDS: CEFEPIME 2,000 MG in SYRINGE 0 ML IV SCH ×2 (11:20→20:35)
--- NOTE | 2022-06-03 11:22 | Electrocardiogram Report ---
Test Reason : Blood Pressure : / mmHG Vent. Rate : 065 BPM Atrial Rate : 073 BPM P-R Int : 000 ms QRS Dur : 086 ms QT Int : 430 ms P-R-T Axes : 000 -11 033 degrees QTc Int : 447 ms Atrial fibrillation Abnormal ECG When compared with ECG of 01-JUN-2022 05:04, Criteria for Septal infarct are no longer Present Confirmed by Luiz Holbrook ([id number]) on 06/03/2022 11:21:39 AM Referred By: REFERRED SELF Confirmed By:Subhash Holbrook
--- NOTE | 2022-06-03 12:55 | Hospitalist Progress Note ---
Date of Service June 03, 2022 Assessment & Plan (1) Atrial fibrillation with rapid ventricular response: Plan: Admit to telemetry Patient recently admitted to [facility] [place] and was discharged to be cared for by his daughter who lives locally. Records requested from [facility] and [facility] where patient received care prior to going to [facility]. Patient states he does not like staying with his daughter and wants to go to a prison to be closer to his in [place], [place]. In the ED, patient found to be in A. fib with RVR. No prior history of. Received metoprolol 5 mg IV in the ED. Patient prescribed metoprolol succinate 50 mg twice daily, unclear if he has been taking. Will change to metoprolol tartrate 25 mg q6h and titrate accordingly. [id number] score 3, will start IV heparin Echo of the heart showedLV is normal in size with normal systolic function. EF 50 to 55%, RV systolic function is normal, left atrium is moderately dilated, right atrium is moderately dilated, and there is moderate mitral regurgitation Patient denies any symptoms of palpitation and/or chest pain Appreciate cardiology input and recommendation We will continue with beta-teri and will give Eliquis on discharge Heart rate remains stable without any cardiac symptoms No cardiac symptoms and the rate is controlled (2) Open wound of left heel: Plan: Pressure ulcer of left heel, stage 3, POA Per the staff at [facility], patient had a left heel wound while at their facility Patient states he had an MRI of his left heel a couple of weeks ago through the [facility] - records requested. Seems to have had a debridement done last week at the [facility]. No signs of osteo on XR today Wound does not appear to be infected, patient is afebrile, no leukocytosis Received IV Zosyn in the ED, will continue with IV cefazolin for now Obtain culture-grew Pseudomonas aeruginosa #1 and #2 #3 staphylococcal species Podiatry and wound care nurse consult Does not seems to be spreading infection (3) COVID-19: Plan: Per the staff at [facility], patient tested positive for COVID-19 on 05/06 however this was via rapid in-house test. No documented lab result available. Patient continues to test positive for COVID-19 today, currently asymptomatic No COVID treatment is required and the patient remains totally asymptomatic No shortness of breath and is saturating normally on room air No respiratory symptoms (4) Elevated troponin I level: Plan: HS trop 50.1 Likely due to demand ischemia from A. fib RVR No reports of chest pain EKG does not show any acute ST changes Continue to trend-no ACS Elevated troponin due to demand ischemia (5) HTN (hypertension): Plan: BP controlled, continue amlodipine Metoprolol as above (6) Neuropathy: Plan: Continue gabapentin Per the staff at [facility], patient was undergoing nerve conduction studies to evaluate for his nonambulatory state Records requested (7) DVT prophylaxis: Plan: On IV heparin (8) Discharge planning issues: Plan: Patient recently admitted to [facility] [place] after being admitted to [facility]. Previous care was obtained through the [facility]. Records have been requested. Patient was discharged from [facility] to be cared for by his daughter who lives locally. She did not accompany the patient to the ED today and no phone number has been provided. Patient states that his , Sabrina, lives in [facility]. Phone number [phone]. I attempted to call her however there was no answer. Patient states that he would like to return to a prison closer to his . I contacted the [facility] to obtain history and they stated that they likely would be able to accept the patient back to their facility. Admission coordinator is Ana Pagan, extension [phone]. Patient now wants to go home resident manager is on the case Admission and Anticipated Discharge Date Admission Date: May 31, 2022 Subjective 06/01/2022 The patient was seen and examined in telemetry unit and in the COVID room He remains stable and denies any symptoms He wants to go to prison 06/02/2022 The patient was seen and examined in telemetry unit and in the COVID room He denies any symptoms and has been waiting to be transferred to [facility] No fever and or chills, no shortness of breath or palpitation 06/03/2022 The patient was seen and examined in telemetry unit and in the COVID room He remained stable and denies any cardiac and/or respiratory symptoms He denies any pain in the left heel, any fever and or chills Review of Systems Review of Systems: All systems reviewed and are unremarkable except as noted below Physical Exam Physical Exam: Lying in bed comfortable Constitutional: well developed, well nourished and + obese; not ill appearing ENMT: external ear and nose normal, oropharynx normal Neck: trachea midline, no thyromegaly Respiratory: no respiratory distress Auscultation: lungs clear to auscultation bilaterally Cardiovascular: Rate/Rhythm: + irregularly irregular; not tachycardic Heart Sounds: normal S1 and normal S2; no murmur Extremities: no edema Gastrointestinal (Abdomen): Inspection/Auscultation: normal bowel sounds; abdomen not distended Percussion/Palpation: abdomen soft; abdomen nontender Musculoskeletal: Ankle: + ankle abnormal to inspection (We will stayLeft heel has a deep wound 3 decubiti ulcer) No acute arthritis involving any joint Neurologic: normal touch/pain/proprioception and moves all extremities; no focal motor deficits Lymphatic: no cervical or axillary lymphadenopathy Results & Data Results & Data ([facility]) Vital Signs (Past 12 Hours) Vital Signs Temp Pulse Pulse Resp BP Pulse Ox O2 Del Method 06/03/22 11:35 36.4 C L 73 18 122/77 97 Room Air 06/03/22 09:16 85 124/72 06/03/22 07:48 36.8 C 72 20 113/70 97 Room Air 06/03/22 07:00 77 06/03/22 03:09 36.5 C 86 18 110/70 96 Room Air Medications Administered Current Inpatient Medications Acetaminophen (Acetaminophen 325 Mg Tab) 650 mg PO Q4H PRN PRN Reason: Pain or Fever Stop: 06/30/22 15:07 Last Admin: 05/31/22 20:33 Dose: 650 mg Amlodipine Besylate (Amlodipine Besylate 5 Mg Tab) 2.5 mg PO DAILY LINDSEY Stop: 07/01/22 08:59 Last Admin: 06/03/22 09:18 Dose: 2.5 mg Apixaban (Apixaban 5 Mg Tablet) 5 mg PO BID LINDSEY Stop: 07/01/22 20:59 Last Admin: 06/03/22 09:18 Dose: 5 mg Finasteride (Finasteride 5 Mg Tab) 5 mg PO HS LINDSEY Stop: 06/30/22 20:59 Last Admin: 06/02/22 20:21 Dose: 5 mg Gabapentin (Gabapentin 600 Mg Tab) 600 mg PO HS LINDSEY Stop: 06/30/22 20:59 Last Admin: 06/02/22 20:22 Dose: 600 mg Cefepime HCl 2,000 mg/ Syringe 20 mls @ 5 mls/min IV Q12 LINDSEY; Protocol Stop: 06/10/22 08:29 Last Admin: 06/03/22 11:20 Dose: 5 mls/min Melatonin (Melatonin 3 Mg Tab) 6 mg PO HS PRN PRN Reason: Sleep Stop: 06/30/22 19:53 Last Admin: 06/02/22 22:25 Dose: 6 mg Metoprolol Succinate (Metoprolol Succ 50mg Ext Rel Tab) 50 mg PO BID LINDSEY Stop: 07/01/22 20:59 Last Admin: 06/03/22 09:18 Dose: 50 mg Psyllium Hydrophilic Mucilloid (Psyllium Or Guar Gum Fiber Powder Packet) 1 pkt PO QAM LINDSEY Stop: 07/01/22 08:59 Last Admin: 06/03/22 09:18 Dose: 1 pkt Tramadol HCl (Tramadol Hcl 50 Mg Tablet) 50 mg PO Q8 PRN PRN Reason: pain Stop: 06/04/22 05:59 Last Admin: 06/02/22 22:24 Dose: 50 mg (1) Open wound of left heel Encounter type: initial encounter Qualified Code(s): S91.302A - Unspecified open wound, left foot, initial encounter
[2022-06-03] MEDS: GABAPENTIN 600 MG TAB PO SCH (20:31)
[2022-06-03] MEDS: FINASTERIDE 5 MG TAB PO SCH (20:32)
[2022-06-03] MEDS: MELATONIN 3 MG TAB PO PRN (23:18)
[2022-06-03] MEDS: traMADol HCL 50 MG TABLET PO PRN (23:18)
[2022-06-04] MEDS: CEFEPIME 2,000 MG in SYRINGE 0 ML IV SCH ×2 (09:15→19:55)
[2022-06-04] MEDS: amLODIPine BESYLATE 5 MG TAB PO SCH (09:15)
[2022-06-04] MEDS: METOPROLOL SUCC 50MG EXT REL TAB PO SCH ×2 (09:15→19:54)
[2022-06-04] MEDS: APIXABAN 5 MG TABLET PO SCH ×2 (09:16→19:54)
[2022-06-04] MEDS: PSYLLIUM or GUAR GUM FIBER POWDER PACKET PO SCH (09:16)
[2022-06-04] MEDS ORDERED: MAGNESIUM HYDROXIDE SUSP 30 ML UDC PO PRN (09:54)
[2022-06-04] MEDS: DAPTOmycin 325 MG in SYRINGE 0 ML IV SCH (10:29)
[2022-06-04] MEDS: POLYETHYLENE (MIRALAX) 17 GM PACK PO SCH (10:35)
--- NOTE | 2022-06-04 11:52 | Cardiology Progress Note ---
Date of Service June 04, 2022 Assessment & Plan (1) Atrial fibrillation with rapid ventricular response: (2) Open wound of left heel: (3) Elevated troponin I level: (4) Neuropathy: Plan The patient is clinically stable. He is awaiting placement. At this point cardiology does not have anything more to add. Cardiology signed off the case. Please reconsult us if necessary. Admission and Anticipated Discharge Date Admission Date: May 31, 2022 Subjective The patient remains in COVID isolation Review of Systems Review of Systems: Review of Systems: See HPI for pertinent positives. All other 10 point review of systems are negative. Physical Exam Physical Exam: General: no acute distress and stated age Head: normocephalic, no masses, lesions, tenderness or abnormalities Eyes: conjunctiva are pink and non-injected, sclera clear Neck: supple, no adenopathy, no bruits, normal jugular venous pulse, no hepatojugular reflux Chest: normal shape and normal respiratory effort Lungs: clear to auscultation and percussion Cardiac Exam: - irregular rate & rhythm, no murmurs gallops or rubs - normal S1, normal S2 Pulses: 2(+) throughout Abdomen: abdomen soft, non-tender, no abnormal masses and no hepatosplenomegaly Musculoskeletal: no gait disturbance, no joint inflammation, no deforming arthritis Extremities: no edema and no cyanosis Neuro: grossly normal exam Results & Data ([facility]) Vital Signs (Past 12 Hours) Vital Signs Temp Pulse Resp BP BP Pulse Ox O2 Del Method 06/04/22 10:17 36.3 C L 79 18 107/68 95 Room Air 06/04/22 10:45 36.4 C L 76 20 115/68 92 Room Air 06/04/22 08:02 36.7 C 71 20 117/74 91 Room Air 06/04/22 03:56 36.6 C 74 18 97/60 L 92 Room Air Medications Administered Current Inpatient Medications Acetaminophen (Acetaminophen 325 Mg Tab) 650 mg PO Q4H PRN PRN Reason: Pain or Fever Stop: 06/30/22 15:07 Last Admin: 05/31/22 20:33 Dose: 650 mg Amlodipine Besylate (Amlodipine Besylate 5 Mg Tab) 2.5 mg PO DAILY LINDSEY Stop: 07/01/22 08:59 Last Admin: 06/04/22 09:15 Dose: 2.5 mg Apixaban (Apixaban 5 Mg Tablet) 5 mg PO BID LINDSEY Stop: 07/01/22 20:59 Last Admin: 06/04/22 09:16 Dose: 5 mg Finasteride (Finasteride 5 Mg Tab) 5 mg PO HS LINDSEY Stop: 06/30/22 20:59 Last Admin: 06/03/22 20:32 Dose: 5 mg Gabapentin (Gabapentin 600 Mg Tab) 600 mg PO HS LINDSEY Stop: 06/30/22 20:59 Last Admin: 06/03/22 20:31 Dose: 600 mg Cefepime HCl 2,000 mg/ Syringe 20 mls @ 5 mls/min IV Q12 LINDSEY; Protocol Stop: 06/10/22 08:29 Last Admin: 06/04/22 09:15 Dose: 5 mls/min Daptomycin 325 mg/ Syringe 6.5 mls @ 3.25 mls/min IV Q24H LINDSEY; Protocol Stop: 06/11/22 08:59 Last Admin: 06/04/22 10:29 Dose: 3.25 mls/min Magnesium Hydroxide (Magnesium Hydroxide Susp 30 Ml Udc) 30 ml PO Q6H PRN PRN Reason: Constipation Stop: 07/04/22 09:53 Melatonin (Melatonin 3 Mg Tab) 6 mg PO HS PRN PRN Reason: Sleep Stop: 06/30/22 19:53 Last Admin: 06/03/22 23:18 Dose: 6 mg Metoprolol Succinate (Metoprolol Succ 50mg Ext Rel Tab) 50 mg PO BID LINDSEY Stop: 07/01/22 20:59 Last Admin: 06/04/22 09:15 Dose: 50 mg Polyethylene Glycol (Polyethylene (Miralax) 17 Gm Pack) 17 gm PO DAILY LINDSEY Stop: 07/04/22 09:59 Last Admin: 06/04/22 10:35 Dose: 17 gm Psyllium Hydrophilic Mucilloid (Psyllium Or Guar Gum Fiber Powder Packet) 1 pkt PO QAM LINDSEY Stop: 07/01/22 08:59 Last Admin: 06/04/22 09:16 Dose: 1 pkt (1) Open wound of left heel Encounter type: initial encounter Qualified Code(s): S91.302A - Unspecified open wound, left foot, initial encounter
--- NOTE | 2022-06-04 13:25 | XRay Report ---
XR chest 1V portable HISTORY: covid infection, r/o pneumonia COMPARISON: None. FINDINGS: No pneumothorax. No pleural effusions. There is mild interstitial thickening at the lung ba ses. There are low lung volumes. The cardiac silhouette is mildly enlarged. There are calcified left hilar lymph nodes. IMPRESSION: 1. Mild interstitial prominence at the lung bases. This is likely due to vascular crowding from the l ow lung volumes. A low-grade interstitial pneumonitis could also have a similar appearance. 2. Mild cardiomegaly. ACT 112: Negative or not required by law. Electronically signed by: Lefty Small M.D. 06/04/2022 1:24 PM
--- NOTE | 2022-06-04 17:14 | Hospitalist Progress Note ---
Date of Service June 04, 2022 Assessment & Plan (1) Atrial fibrillation with rapid ventricular response: (2) Open wound of left heel: (3) COVID-19: (4) Elevated troponin I level: (5) HTN (hypertension): (6) Neuropathy: (7) DVT prophylaxis: Plan: per Dr. Espino's notes with addendum: (1) Atrial fibrillation with rapid ventricular response: Plan: Admit to telemetry Patient recently admitted to [facility] and was discharged to be cared for by his daughter who lives locally. Records requested from [facility] and [facility] where patient received care prior to going to [facility]. Patient states he does not like staying with his daughter and wants to go to a intermediate to be closer to his in [place], [place]. In the ED, patient found to be in A. fib with RVR. No prior history of. Received metoprolol 5 mg IV in the ED. Patient prescribed metoprolol succinate 50 mg twice daily, unclear if he has been taking. Will change to metoprolol tartrate 25 mg q6h and titrate accordingly. [id number] score 3, will start IV heparin Echo of the heart showedLV is normal in size with normal systolic function. EF 50 to 55%, RV systolic function is normal, left atrium is moderately dilated, right atrium is moderately dilated, and there is moderate mitral regurgitation Patient denies any symptoms of palpitation and/or chest pain Appreciate cardiology input and recommendation We will continue with beta-teri and will give Eliquis on discharge Heart rate remains stable without any cardiac symptoms No cardiac symptoms and the rate is controlled 9/7 HR controlled continue Metoprolol, Eliquis (2) Open wound of left heel: Plan: Pressure ulcer of left heel, stage 3, POA Per the staff at [facility], patient had a left heel wound while at their fa cility Patient states he had an MRI of his left heel a couple of weeks ago through the [facility] - records requested. Seems to have had a debridement done last week at the [facility]. No signs of osteo on XR today Wound does not appear to be infected, patient is afebrile, no leukocytosis Received IV Zosyn in the ED, will continue with IV cefazolin for now Obtain culture-grew Pseudomonas aeruginosa #1 and #2 #3 staphylococcal species Podiatry and wound care nurse consult Does not seems to be spreading infection 06/04 Wound Cx: (+) Pseudomonas, MRSA - add Dapto continue Cefepime (3) COVID-19: Plan: Per the staff at [facility], patient tested positive for COVID-19 on 05/06 however this was via rapid in-house test. No documented lab result available. Patient continues to test positive for COVID-19 today, currently asymptomatic No COVID treatment is required and the patient remains totally asymptomatic No shortness of breath and is saturating normally on room air No respiratory symptoms 06/04 CXR: 1. Mild interstitial prominence at the lung bases. This is likely due to vascular crowding from the low lung volumes. A low-grade interstitial pne umonitis could also have a similar appearance. 2. Mild cardiomegaly. start Remdesivir Day 1 (4) Elevated troponin I level: Plan: HS trop 50.1 Likely due to demand ischemia from A. fib RVR No reports of chest pain EKG does not show any acute ST changes Continue to trend-no ACS Elevated troponin due to demand ischemia (5) HTN (hypertension): Plan: BP controlled, continue amlodipine Metoprolol as above (6) Neuropathy: Plan: Continue gabapentin Per the staff at [facility], patient was undergoing nerve conduction studies to evaluate for his nonambulatory state Records requested (7) DVT prophylaxis: Plan: Eliquis (8) Discharge planning issues: Plan: Patient recently admitted to the [facility] after being admitted to [facility]. Previous care was obtained through the [facility]. Records have been requested. Patient was discharged from [facility] to be cared for by his daughter who lives locally. She did not accompany the patient to the ED today and no phone number has been provided. Patient states that his , Sabrina, lives in [facility]. Phone number [phone]. I attempted to call her however there was no answer. Patient states that he would like to return to a intermediate closer to his . I contacted [facility] to obtain history and they stated that they likely would be able to accept the patient back to their facility. Admission coordinator is Ana Pagan, extension [phone]. CM on board (8) Discharge planning issues: Admission and Anticipated Discharge Date Admission Date: May 31, 2022 Subjective ff up for COVID infection, L heel wound infection, etc seen resting in bed, comfortable watching TV states he feels fine overall minimal pain L heel no dyspnea, cough, chest pain, palpitations, dizziness no other symptoms Review of Systems Review of Systems: all noted and negative except for above Physical Exam Physical Exam: General- oriented x 3, not in distress, speaks in sentences with no effort or accessory muscle use Eyes- anicteric Neck- no JVD Lungs- clear BS bilaterally, no rales/wheezes Heart- normal rate, regular rhythm; no murmurs Abdomen- normal bowel sounds, nondistended, soft, nontender Extremities- no pretibial edema, no calf tenderness L foot: heavy dressing in place Neuro- alert, oriented x 3; no gross focal neurologic deficits Skin- warm & dry Results & Data Results & Data ([facility]) Vital Signs (Past 12 Hours) Vital Signs Temp Pulse Resp BP BP Pulse Ox O2 Del Method 06/04/22 16:48 36.3 C L 80 20 132/82 93 Room Air 06/04/22 10:17 36.3 C L 79 18 107/68 95 Room Air 06/04/22 10:45 36.4 C L 76 20 115/68 92 Room Air 06/04/22 08:02 36.7 C 71 20 117/74 91 Room Air all noted and reviewed including below (1) Open wound of left heel Encounter type: initial encounter Qualified Code(s): S91.302A - Unspecified open wound, left foot, initial encounter
[2022-06-04] MEDS ORDERED: REMDESIVIR 200 MG in SODIUM CHLORIDE 0.9% 210 ML IV ONE (17:45)
[2022-06-04] MEDS: GABAPENTIN 600 MG TAB PO SCH (19:54)
[2022-06-04] MEDS: FINASTERIDE 5 MG TAB PO SCH (19:54)
[2022-06-05] MEDS: MELATONIN 3 MG TAB PO PRN ×2 (00:24→21:19)
[2022-06-05] MEDS: traMADol HCL 50 MG TABLET PO PRN ×2 (00:44→08:05)
[2022-06-05 07:52] LABS: Albumin Level 2.9 gm/dl (3.4-5.0); BUN Creatinine Ratio 26.9 (10-20); Bilirubin,Total 0.4 mg/dl (0.2-1.0); Calcium 8.8 mg/dl (8.5-10.1); Creatinine Clr Calc Pharmacy 58.6 ml/min; Est GFR (African American) 74.5 ml/min; Est GFR (Non-African American) 64.3 ml/min; Potassium 4.8 mmol/L (3.5-5.1); Total Protein 5.9 gm/dl (6.0-8.3)
[2022-06-05] MEDS: DAPTOmycin 325 MG in SYRINGE 0 ML IV SCH (09:58)
[2022-06-05] MEDS: CEFEPIME 2,000 MG in SYRINGE 0 ML IV SCH ×2 (09:58→20:22)
[2022-06-05] MEDS: APIXABAN 5 MG TABLET PO SCH ×2 (09:59→20:23)
[2022-06-05] MEDS: amLODIPine BESYLATE 5 MG TAB PO SCH (09:59)
[2022-06-05] MEDS: POLYETHYLENE (MIRALAX) 17 GM PACK PO SCH (09:59)
[2022-06-05] MEDS: PSYLLIUM or GUAR GUM FIBER POWDER PACKET PO SCH (09:59)
[2022-06-05] MEDS: METOPROLOL SUCC 50MG EXT REL TAB PO SCH ×2 (10:00→20:23)
[2022-06-05] MEDS: HYDROCODONE/ACETAMOPHEN 5/325MG TAB PO PRN ×2 (11:49→21:19)
--- NOTE | 2022-06-05 19:13 | Hospitalist Progress Note ---
Date of Service June 05, 2022 Assessment & Plan (1) Atrial fibrillation with rapid ventricular response: (2) Open wound of left heel: (3) COVID-19: (4) Elevated troponin I level: (5) HTN (hypertension): (6) Neuropathy: Plan: (1) Atrial fibrillation with rapid ventricular response: Plan: Admit to telemetry Patient recently admitted to [facility] [place] and was discharged to be cared for by his daughter who lives locally. Records requested from [facility] and [facility] where patient received care prior to going to [facility]. Patient states he does not like staying with his daughter and wants to go to a shelter to be closer to his in [place], [place]. In the ED, patient found to be in A. fib with RVR. No prior history of. Received metoprolol 5 mg IV in the ED. Patient prescribed metoprolol succinate 50 mg twice daily, unclear if he has been taking. Will change to metoprolol tartrate 25 mg q6h and titrate accordingly. [id number] score 3, will start IV heparin Echo of the heart showedLV is normal in size with normal systolic function. EF 50 to 55%, RV systolic function is normal, left atrium is moderately dilated, right atrium is moderately dilated, and there is moderate mitral regurgitation Patient denies any symptoms of palpitation and/or chest pain Appreciate cardiology input and recommendation We will continue with beta-teri and will give Eliquis on discharge Heart rate remains stable without any cardiac symptoms No cardiac symptoms and the rate is controlled 06/09 HR controlled continue Metoprolol, Eliquis (2) Open wound of left heel: Plan: Pressure ulcer of left heel, stage 3, POA Per the staff at [facility], patient had a left heel wound while at their facility Patient states he had an MRI of his left heel a couple of weeks ago through the [facility] - records requested. Seems to have had a debridement done last week at the [facility]. No signs of osteo on XR today Wound does not appear to be infected, patient is afebrile, no leukocytosis Received IV Zosyn in the ED, will continue with IV cefazolin for now Obtain culture-grew Pseudomonas aeruginosa #1 and #2 #3 staphylococcal species Podiatry and wound care nurse consult Does not seems to be spreading infection 06/09 Wound Cx: (+) Pseudomonas, MRSA -Continue daptomycin plus cefepime ID consulted Awaiting outpatient records to determine recent diagnosis and treatments from outside facilities, and decide on current antibiotic regimen --Requested follow-up from nursing unit coordinator daily Will try to obtain records from patient's most recent shelter, [facility] (3) COVID-19: Plan: Per the staff at [facility], patient tested positive for COVID-19 on 05/06 however this was via rapid in-house test. No documented lab result available. Patient continues to test positive for COVID-19 today, currently asymptomatic No COVID treatment is required and the patient remains totally asymptomatic No shortness of breath and is saturating normally on room air No respiratory symptoms CXR: 1. Mild interstitial prominence at the lung bases. This is likely due to vascular crowding from the low lung volumes. A low-grade interstitial pneumonitis could also have a similar appearance. 2. Mild cardiomegaly. Stable overall On room air Completed remdesivir day #5/ (4) Elevated troponin I level: Plan: HS trop 50.1 Likely due to demand ischemia from A. fib RVR No reports of chest pain EKG does not show any acute ST changes Continue to trend-no ACS Elevated troponin due to demand ischemia (5) HTN (hypertension): Plan: BP controlled, continue amlodipine Metoprolol as above (6) Neuropathy: Plan: Continue gabapentin Per the staff at [facility], patient was undergoing nerve conduction studies to evaluate for his nonambulatory state Records requested (7) DVT prophylaxis: Plan: Eliquwendy (8) Discharge planning issues: Plan: Patient recently admitted to the [facility] after being admitted to [facility]. Previous care was obtained through the [facility]. Records have been requested. Patient was discharged from [facility] to be cared for by his daughter who lives locally. She did not accompany the patient to the ED today and no phone number has been provided. Patient states that his , Sabrina, lives in [facility]. Phone number [phone]. I attempted to call her however there was no answer. Patient states that he would like to return to a shelter closer to his . I contacted the [facility] to obtain history and they stated that they likely would be able to accept the patient back to their facility. Admission coordinator is Ana Pagan, extension [phone]. CM on board (8) Discharge planning issues: SNF (7) DVT prophylaxis: (8) Discharge planning issues: Admission and Anticipated Discharge Date Admission Date: May 31, 2022 Subjective Follow-up for A. fib, left heel wound, etc. Seen resting in bed, comfortable, not in distress Having breakfast States he feels fine overall No shortness of breath, cough, chest pain Very minimal pain in the left heel wound No other symptoms Review of Systems Review of Systems: all noted and negative except for above Physical Exam Physical Exam: General- oriented x 3, not in distress, speaks in sentences with no effort or accessory muscle use Eyes- anicteric Neck- no JVD Lungs- clear breath sounds bilaterally, no crackles, no wheezing Heart- normal rate, regular rhythm; no murmurs Abdomen- normal bowel sounds, nondistended, soft, nontender Extremities- no pretibial edema, no calf tenderness Left foot-no edema, erythema Wound healing well No surrounding erythema/edema/tenderness, no bleeding or discharge Neuro- alert, oriented x 3; no gross focal neurologic deficits Skin- warm & dry Results & Data Results & Data ([facility]) Vital Signs (Past 12 Hours) Vital Signs Temp Pulse Pulse Resp BP Pulse Ox O2 Del Method 06/05/22 11:47 36.7 C 75 18 111/73 96 Room Air 06/05/22 09:00 81 06/05/22 09:00 Room Air 06/05/22 08:07 36.5 C 73 18 117/65 92 Room Air all noted and reviewed including below (1) Open wound of left heel Encounter type: initial encounter Qualified Code(s): S91.302A - Unspecified open wound, left foot, initial encounter
[2022-06-05] MEDS: GABAPENTIN 600 MG TAB PO SCH (20:23)
[2022-06-05] MEDS: FINASTERIDE 5 MG TAB PO SCH (20:23)
[2022-06-05] MEDS: REMDESIVIR 100 MG in SODIUM CHLORIDE 0.9% 230 ML IV SCH (21:19)
[2022-06-06 06:45] LABS: Albumin Globulin Ratio 0.9 (0.9-2); Albumin Level 2.8 gm/dl (3.4-5.0); BUN Creatinine Ratio 31.7 (10-20); Bilirubin,Total 0.4 mg/dl (0.2-1.0); Calcium 8.6 mg/dl (8.5-10.1); Creatinine Clr Calc Pharmacy 58.6 ml/min; Est GFR (African American) 74.5 ml/min; Est GFR (Non-African American) 64.3 ml/min; Globulin 3.1 gm/dl (2.5-4.0); Potassium 4.2 mmol/L (3.5-5.1); Total Protein 5.9 gm/dl (6.0-8.3)
[2022-06-06] MEDS: METOPROLOL SUCC 50MG EXT REL TAB PO SCH ×2 (09:34→22:34)
[2022-06-06] MEDS: POLYETHYLENE (MIRALAX) 17 GM PACK PO SCH (09:34)
[2022-06-06] MEDS: amLODIPine BESYLATE 5 MG TAB PO SCH (09:34)
[2022-06-06] MEDS: APIXABAN 5 MG TABLET PO SCH ×2 (09:35→22:34)
[2022-06-06] MEDS: PSYLLIUM or GUAR GUM FIBER POWDER PACKET PO SCH (09:36)
[2022-06-06] MEDS: DAPTOmycin 325 MG in SYRINGE 0 ML IV SCH (09:52)
[2022-06-06] MEDS: CEFEPIME 2,000 MG in SYRINGE 0 ML IV SCH ×2 (09:52→22:32)
--- NOTE | 2022-06-06 18:12 | Hospitalist Progress Note ---
Date of Service June 06, 2022 Assessment & Plan (1) Atrial fibrillation with rapid ventricular response: (2) Open wound of left heel: (3) COVID-19: (4) Elevated troponin I level: (5) HTN (hypertension): (6) Neuropathy: (7) DVT prophylaxis: Plan: per Dr. Espino's notes with addendum: (1) Atrial fibrillation with rapid ventricular response: Plan: Admit to telemetry Patient recently admitted to [facility] [place] and was discharged to be cared for by his daughter who lives locally. Records requested from [facility] and [facility] where patient received care prior to going to [facility]. Patient states he does not like staying with his daughter and wants to go to a [facility] to be closer to his in [place], [place]. In the ED, patient found to be in A. fib with RVR. No prior history of. Received metoprolol 5 mg IV in the ED. Patient prescribed metoprolol succinate 50 mg twice daily, unclear if he has been taking. Will change to metoprolol tartrate 25 mg q6h and titrate accordingly. [id number] score 3, will start IV heparin Echo of the heart showedLV is normal in size with normal systolic function. EF 50 to 55%, RV systolic function is normal, left atrium is moderately dilated, right atrium is moderately dilated, and there is moderate mitral regurgitation Patient denies any symptoms of palpitation and/or chest pain Appreciate cardiology input and recommendation We will continue with beta-teri and will give Eliquis on discharge Heart rate remains stable without any cardiac symptoms No cardiac symptoms and the rate is controlled 9/9 HR controlled continue Metoprolol, Eliquis (2) Open wound of left heel: Plan: Pressure ulcer of left heel, stage 3, POA Per the staff at [facility], patient had a left heel wound while at their fa cility Patient states he had an MRI of his left heel a couple of weeks ago through the [facility] - records requested. Seems to have had a debridement done last week at the [facility]. No signs of osteo on XR today Wound does not appear to be infected, patient is afebrile, no leukocytosis Received IV Zosyn in the ED, will continue with IV cefazolin for now Obtain culture-grew Pseudomonas aeruginosa #1 and #2 #3 staphylococcal species Podiatry and wound care nurse consult Does not seems to be spreading infection 04/05 Wound Cx: (+) Pseudomonas, MRSA -Continue daptomycin plus cefepime ID consulted Awaiting outpatient records to determine recent diagnosis and treatments from outside facilities, and decide on current antibiotic regimen (3) COVID-19: Plan: Per the staff at [facility], patient tested positive for COVID-19 on 05/06 however this was via rapid in-house test. No documented lab result available. Patient continues to test positive for COVID-19 today, currently asymptomatic No COVID treatment is required and the patient remains totally asymptomatic No shortness of breath and is saturating normally on room air No respiratory symptoms 06/06 CXR: 1. Mild interstitial prominence at the lung bases. This is likely due to vascular crowding from the low lung volumes. A low-grade interstitial pneumonitis could also have a similar appearance. 2. Mild cardiomegaly. Stable overall On room air Continue remdesivir day #3 (4) Elevated troponin I level: Plan: HS trop 50.1 Likely due to demand ischemia from A. fib RVR No reports of chest pain EKG does not show any acute ST changes Continue to trend-no ACS Elevated troponin due to demand ischemia (5) HTN (hypertension): Plan: BP controlled, continue amlodipine Metoprolol as above (6) Neuropathy: Plan: Continue gabapentin Per the staff at [facility], patient was undergoing nerve conduction studies to evaluate for his nonambulatory state Records requested (7) DVT prophylaxis: Plan: Eliquis (8) Discharge planning issues: Plan: Patient recently admitted to the [facility] after being admitted to [facility]. Previous care was obtained through the [facility]. Records have been requested. Patient was discharged from [facility] to be cared for by his daughter who lives locally. She did not accompany the patient to the ED today and no phone number has been provided. Patient states that his , Kari boucher, lives in [facility]. Phone number [phone]. I attempted to call her however there was no answer. Patient states that he would like to return to a [facility] closer to his . I contacted the [facility] [place] to obtain history and they stated that they likely would be able to accept the patient back to their facility. Admission coordinator is Ana Pagan, extension [phone]. CM on board (8) Discharge planning issues: Admission and Anticipated Discharge Date Admission Date: May 31, 2022 Subjective Follow-up for left wound infection, COVID-19 pneumonia, etc. Seen resting in bed, watching TV, not in distress States he feels fine overall No shortness of breath or cough No abdominal pain, nausea vomiting Minimal discomfort in the left foot now No other symptoms Review of Systems Review of Systems: all noted and negative except for above Physical Exam Physical Exam: General- oriented x2, not in distress, speaks in sentences with no effort or accessory muscle use Eyes- anicteric Neck- no JVD Lungs- clear BS bilaterally, no rales/wheezes Heart- normal rate, regular rhythm; no murmurs Abdomen- normal bowel sounds, nondistended, soft, nontender Extremities- no pretibial edema, no calf tenderness Left foot-dressing in place, no bleeding or discharge next Neuro- alert, oriented x 3; no gross focal neurologic deficits Skin- warm & dry Results & Data Results & Data ([facility]) Vital Signs (Past 12 Hours) Vital Signs Temp Pulse Pulse Resp BP Pulse Ox O2 Del Method 06/06/22 15:35 36.5 C 73 18 118/61 96 Room Air 06/06/22 14:48 84 06/06/22 12:00 37.0 C 88 16 113/74 96 06/06/22 08:00 37.0 C 76 16 118/62 95 all noted and reviewed including below (1) Open wound of left heel Encounter type: initial encounter Qualified Code(s): S91.302A - Unspecified open wound, left foot, initial encounter
[2022-06-06] MEDS: REMDESIVIR 100 MG in SODIUM CHLORIDE 0.9% 230 ML IV SCH (22:32)
[2022-06-06] MEDS: HYDROCODONE/ACETAMOPHEN 5/325MG TAB PO PRN (22:33)
[2022-06-06] MEDS: GABAPENTIN 600 MG TAB PO SCH (22:34)
[2022-06-06] MEDS: FINASTERIDE 5 MG TAB PO SCH (22:34)
[2022-06-07 06:53] LABS: Albumin Globulin Ratio 0.9 (0.9-2); Albumin Level 2.9 gm/dl (3.4-5.0); BUN Creatinine Ratio 34.7 (10-20); Bilirubin,Total 0.3 mg/dl (0.2-1.0); Calcium 8.9 mg/dl (8.5-10.1); Est GFR (African American) 83.1 ml/min; Est GFR (Non-African American) 71.7 ml/min; Globulin 3.1 gm/dl (2.5-4.0); Potassium 4.3 mmol/L (3.5-5.1)
[2022-06-07] MEDS: amLODIPine BESYLATE 5 MG TAB PO SCH (08:15)
[2022-06-07] MEDS: APIXABAN 5 MG TABLET PO SCH ×2 (08:15→19:49)
[2022-06-07] MEDS: POLYETHYLENE (MIRALAX) 17 GM PACK PO SCH (08:16)
[2022-06-07] MEDS: PSYLLIUM or GUAR GUM FIBER POWDER PACKET PO SCH (08:16)
[2022-06-07] MEDS: METOPROLOL SUCC 50MG EXT REL TAB PO SCH ×2 (08:16→19:48)
[2022-06-07] MEDS: CEFEPIME 2,000 MG in SYRINGE 0 ML IV SCH ×2 (08:16→19:42)
[2022-06-07] MEDS: DAPTOmycin 325 MG in SYRINGE 0 ML IV SCH (08:16)
--- NOTE | 2022-06-07 16:12 | Hospitalist Progress Note ---
Date of Service June 07, 2022 Assessment & Plan (1) Atrial fibrillation with rapid ventricular response: (2) Open wound of left heel: (3) COVID-19: (4) Elevated troponin I level: (5) HTN (hypertension): (6) Neuropathy: (7) DVT prophylaxis: Plan: per Dr. Espino's notes with addendum: (1) Atrial fibrillation with rapid ventricular response: Plan: Admit to telemetry Patient recently admitted to [facility] and was discharged to be cared for by his daughter who lives locally. Records requested from [facility] and [facility] where patient received care prior to going to [facility]. Patient states he does not like staying with his daughter and wants to go to a [facility] to be closer to his in [place], [place]. In the ED, patient found to be in A. fib with RVR. No prior history of. Received metoprolol 5 mg IV in the ED. Patient prescribed metoprolol succinate 50 mg twice daily, unclear if he has been taking. Will change to metoprolol tartrate 25 mg q6h and titrate accordingly. [id number] score 3, will start IV heparin Echo of the heart showedLV is normal in size with normal systolic function. EF 50 to 55%, RV systolic function is normal, left atrium is moderately dilated, right atrium is moderately dilated, and there is moderate mitral regurgitation Patient denies any symptoms of palpitation and/or chest pain Appreciate cardiology input and recommendation We will continue with beta-teri and will give Eliquis on discharge Heart rate remains stable without any cardiac symptoms No cardiac symptoms and the rate is controlled 9/10 HR controlled continue Metoprolol, Eliquis (2) Open wound of left heel: Plan: Pressure ulcer of left heel, stage 3, POA Per the staff at [facility], patient had a left heel wound while at their facility Patient states he had an MRI of his left heel a couple of weeks ago through the [facility] - records requested. Seems to have had a debridement done last week at the [facility]. No signs of osteo on XR today Wound does not appear to be infected, patient is afebrile, no leukocytosis Received IV Zosyn in the ED, will continue with IV cefazolin for now Obtain culture-grew Pseudomonas aeruginosa #1 and #2 #3 staphylococcal species Podiatry and wound care nurse consult Does not seems to be spreading infection 06/07 Wound Cx: (+) Pseudomonas, MRSA -Continue daptomycin plus cefepime ID consulted Awaiting outpatient records to determine recent diagnosis and treatments from outside facilities, and decide on current antibiotic regimen Probiotics (3) COVID-19: Plan: Per the staff at [facility], patient tested positive for COVID-19 on 05/06 however this was via rapid in-house test. No documented lab result available. Patient continues to test positive for COVID-19 today, currently asymptomatic No COVID treatment is required and the patient remains totally asymptomatic No shortness of breath and is saturating normally on room air No respiratory symptoms 910 CXR: 1. Mild interstitial prominence at the lung bases. This is likely due to vascular crowding from the low lung volumes. A low-grade interstitial pneumonitis could also have a similar appearance. 2. Mild cardiomegaly. Stable overall On room air Continue remdesivir day #4 (4) Elevated troponin I level: Plan: HS trop 50.1 Likely due to demand ischemia from A. fib RVR No reports of chest pain EKG does not show any acute ST changes Continue to trend-no ACS Elevated troponin due to demand ischemia (5) HTN (hypertension): Plan: BP controlled, continue amlodipine Metoprolol as above (6) Neuropathy: Plan: Continue gabapentin Per the staff at [facility], patient was undergoing nerve conduction studies to evaluate for his nonambulatory state Records requested (7) DVT prophylaxis: Plan: Eliquis (8) Discharge planning issues: Plan: Patient recently admitted to the [facility] after being admitted to [facility]. Previous care was obtained through the [facility]. Records have been requested. Patient was discharged from [facility] to be cared for by his daughter who lives locally. She did not accompany the patient to the ED today and no phone number has been provided. Patient states that his , Sabrina, lives in [facility]. Phone number [phone]. I attempted to call her however there was no answer. Patient states that he would like to return to a [facility] closer to his . I contacted [facility] to obtain history and they stated that they likely would be able to accept the patient back to their facility. Admission coordinator is Ana Pagan, extension [phone]. CM on board (8) Discharge planning issues: Admission and Anticipated Discharge Date Admission Date: May 31, 2022 Subjective Follow-up for COVID-19 pneumonia, left foot infection, atrial fibrillation, etc. Seen resting in bed, comfortable, watching TV States he feels fine overall Minimal pain over the left foot with movement No chest pain, shortness of breath, cough, nausea vomiting No other symptoms Review of Systems Review of Systems: all noted and negative except for above Physical Exam Physical Exam: General- oriented x 2, not in distress, speaks in sentences with no effort or accessory muscle use Eyes- anicteric Neck- no JVD Lungs- clear breath sounds, no crackles or wheezing bilaterally Heart- normal rate, regular rhythm; no murmurs Abdomen- normal bowel sounds, nondistended, soft, nontender Extremities- no pretibial edema, no calf tenderness Left foot-dressing in place, no bleeding or discharge, no edema surrounding Neuro- alert, oriented x 2; no gross focal neurologic deficits Skin- warm & dry Results & Data Results & Data ([facility]) Vital Signs (Past 12 Hours) Vital Signs Temp Pulse Pulse Resp BP BP Pulse Ox 06/07/22 15:26 68 06/07/22 15:13 36.7 C 77 18 112/70 96 06/07/22 11:38 36.3 C L 70 22 125/74 97 06/07/22 08:00 36.5 C 82 19 134/77 96 06/07/22 07:39 76 O2 Del Method 06/07/22 15:26 06/07/22 15:13 Room Air 06/07/22 11:38 Room Air 06/07/22 08:00 Room Air 06/07/22 07:39 all noted and reviewed including below (1) Open wound of left heel Encounter type: initial encounter Qualified Code(s): S91.302A - Unspecified open wound, left foot, initial encounter
[2022-06-07] MEDS: REMDESIVIR 100 MG in SODIUM CHLORIDE 0.9% 230 ML IV SCH (19:42)
[2022-06-07] MEDS: FINASTERIDE 5 MG TAB PO SCH (19:48)
[2022-06-07] MEDS: GABAPENTIN 600 MG TAB PO SCH (19:48)
[2022-06-07] MEDS: HYDROCODONE/ACETAMOPHEN 5/325MG TAB PO PRN (21:52)
[2022-06-07] MEDS: MELATONIN 3 MG TAB PO PRN (21:53)
[2022-06-08 06:50] LABS: Albumin Globulin Ratio 0.9 (0.9-2); Albumin Level 2.8 gm/dl (3.4-5.0); BUN Creatinine Ratio 36.9 (10-20); Bilirubin,Total 0.3 mg/dl (0.2-1.0); Calcium 8.9 mg/dl (8.5-10.1); Creatinine Clr Calc Pharmacy 69.8 ml/min; Est GFR (African American) 91.2 ml/min; Est GFR (Non-African American) 78.7 ml/min; Potassium 4.2 mmol/L (3.5-5.1); Total Protein 5.8 gm/dl (6.0-8.3)
[2022-06-08] MEDS: DAPTOmycin 325 MG in SYRINGE 0 ML IV SCH (08:14)
[2022-06-08] MEDS: CEFEPIME 2,000 MG in SYRINGE 0 ML IV SCH ×2 (08:14→20:32)
[2022-06-08] MEDS: amLODIPine BESYLATE 5 MG TAB PO SCH (08:16)
[2022-06-08] MEDS: ADVANCED PROBIOTIC 1250 MG CAPSULE PO SCH (08:17)
[2022-06-08] MEDS: APIXABAN 5 MG TABLET PO SCH ×2 (08:17→20:33)
[2022-06-08] MEDS: METOPROLOL SUCC 50MG EXT REL TAB PO SCH ×2 (08:17→20:33)
[2022-06-08] MEDS: POLYETHYLENE (MIRALAX) 17 GM PACK PO SCH (08:18)
[2022-06-08] MEDS: PSYLLIUM or GUAR GUM FIBER POWDER PACKET PO SCH (08:18)
--- NOTE | 2022-06-08 14:10 | Hospitalist Progress Note ---
Date of Service June 08, 2022 Assessment & Plan (1) Atrial fibrillation with rapid ventricular response: (2) Open wound of left heel: (3) COVID-19: (4) Elevated troponin I level: (5) HTN (hypertension): (6) Neuropathy: Plan: (1) Atrial fibrillation with rapid ventricular response: Plan: Admit to telemetry Patient recently admitted to [facility] and was discharged to be cared for by his daughter who lives locally. Records requested from [facility] and [facility] where patient received care prior to going to [facility]. Patient states he does not like staying with his daughter and wants to go to a shelter to be closer to his in [place], [place]. In the ED, patient found to be in A. fib with RVR. No prior history of. Received metoprolol 5 mg IV in the ED. Patient prescribed metoprolol succinate 50 mg twice daily, unclear if he has been taking. Will change to metoprolol tartrate 25 mg q6h and titrate accordingly. [id number] score 3, will start IV heparin Echo of the heart showedLV is normal in size with normal systolic function. EF 50 to 55%, RV systolic function is normal, left atrium is moderately dilated, right atrium is moderately dilated, and there is moderate mitral regurgitation Patient denies any symptoms of palpitation and/or chest pain Appreciate cardiology input and recommendation We will continue with beta-teri and will give Eliquis on discharge Heart rate remains stable without any cardiac symptoms No cardiac symptoms and the rate is controlled 06/08 HR controlled continue Metoprolol, Eliquis (2) Open wound of left heel: Plan: Pressure ulcer of left heel, stage 3, POA Per the staff at [facility], patient had a left heel wound while at their facility Patient states he had an MRI of his left heel a couple of weeks ago through the [facility] - records requested. Seems to have had a debridement done last week at the [facility]. No signs of osteo on XR today Wound does not appear to be infected, patient is afebrile, no leukocytosis Received IV Zosyn in the ED, will continue with IV cefazolin for now Obtain culture-grew Pseudomonas aeruginosa #1 and #2 #3 staphylococcal species Podiatry and wound care nurse consult Does not seems to be spreading infection 06/08 Wound Cx: (+) Pseudomonas, MRSA -Continue daptomycin plus cefepime ID consulted Awaiting outpatient records to determine recent diagnosis and treatments from outside facilities, and decide on current antibiotic regimen Probiotics (3) COVID-19: Plan: Per the staff at [facility], patient tested positive for COVID-19 on 05/06 however this was via rapid in-house test. No documented lab result available. Patient continues to test positive for COVID-19 today, currently asymptomatic No COVID treatment is required and the patient remains totally asymptomatic No shortness of breath and is saturating normally on room air No respiratory symptoms 06/08 CXR: 1. Mild interstitial prominence at the lung bases. This is likely due to vascular crowding from the low lung volumes. A low-grade interstitial pneumonitis could also have a similar appearance. 2. Mild cardiomegaly. Stable overall On room air Continue remdesivir day #5 (4) Elevated troponin I level: Plan: HS trop 50.1 Likely due to demand ischemia from A. fib RVR No reports of chest pain EKG does not show any acute ST changes Continue to trend-no ACS Elevated troponin due to demand ischemia (5) HTN (hypertension): Plan: BP controlled, continue amlodipine Metoprolol as above (6) Neuropathy: Plan: Continue gabapentin Per the staff at [facility], patient was undergoing nerve conduction studies to evaluate for his nonambulatory state Records requested (7) DVT prophylaxis: Plan: Eliquis (8) Discharge planning issues: Plan: Patient recently admitted to [facility] after being admitted to [facility]. Previous care was obtained through the [facility]. Records have been requested. Patient was discharged from [facility] to be cared for by his daughter who lives locally. She did not accompany the patient to the ED today and no phone number has been provided. Patient states that his , Sabrina, lives in [facility]. Phone number [phone]. I attempted to call her however there was no answer. Patient states that he would like to return to a shelter closer to his . I contacted [facility] to obtain history and they stated that they likely would be able to accept the patient back to their facility. Admission coordinator is Ana Pagan, extension [phone]. CM on board (8) Discharge planning issues: SNF (7) DVT prophylaxis: (8) Discharge planning issues: Admission and Anticipated Discharge Date Admission Date: May 31, 2022 Subjective ff up for COVID 19 pneumonia, etc seen resting in bed, watching TV, comfortable states he feels fine overall no foot pain no shortness of breath, cough no other symptoms Review of Systems Review of Systems: all noted and negative except for above Physical Exam Physical Exam: General- oriented x 2, not in distress, speaks in sentences with no effort or accessory muscle use Eyes- anicteric Neck- no JVD Lungs- clear BS bilaterally, no rales/wheezes Heart- normal rate, regular rhythm; no murmurs Abdomen- normal bowel sounds, nondistended, soft, nontender Extremities- no pretibial edema, no calf tenderness Foot, L- no edema, dressing in place- no bleeding/discharge Neuro- alert, oriented x 3; no gross focal neurologic deficits Skin- warm & dry Results & Data Results & Data ([facility]) Vital Signs (Past 12 Hours) Vital Signs Temp Pulse Pulse Resp BP Pulse Ox O2 Del Method 06/08/22 11:24 36.5 C 80 18 95/59 L 95 Room Air 06/08/22 07:38 74 06/08/22 07:37 36.4 C L 76 18 109/67 94 Room Air 06/08/22 03:52 36.7 C 74 16 100/66 97 Room Air all noted and reviewed including below (1) Open wound of left heel Encounter type: initial encounter Qualified Code(s): S91.302A - Unspecified open wound, left foot, initial encounter
[2022-06-08] MEDS: REMDESIVIR 100 MG in SODIUM CHLORIDE 0.9% 230 ML IV SCH (20:31)
[2022-06-08] MEDS: GABAPENTIN 600 MG TAB PO SCH (20:33)
[2022-06-08] MEDS: FINASTERIDE 5 MG TAB PO SCH (20:33)
[2022-06-08] MEDS: HYDROCODONE/ACETAMOPHEN 5/325MG TAB PO PRN (22:08)
[2022-06-08] MEDS: MELATONIN 3 MG TAB PO PRN (22:08)
[2022-06-09] MEDS: POLYETHYLENE (MIRALAX) 17 GM PACK PO SCH (08:52)
[2022-06-09] MEDS: PSYLLIUM or GUAR GUM FIBER POWDER PACKET PO SCH (08:53)
[2022-06-09] MEDS: DAPTOmycin 325 MG in SYRINGE 0 ML IV SCH (08:55)
[2022-06-09] MEDS: amLODIPine BESYLATE 5 MG TAB PO SCH (08:55)
[2022-06-09] MEDS: CEFEPIME 2,000 MG in SYRINGE 0 ML IV SCH ×2 (08:55→20:45)
[2022-06-09] MEDS: APIXABAN 5 MG TABLET PO SCH ×2 (08:55→20:45)
[2022-06-09] MEDS: ADVANCED PROBIOTIC 1250 MG CAPSULE PO SCH (08:55)
[2022-06-09] MEDS: METOPROLOL SUCC 50MG EXT REL TAB PO SCH ×2 (08:56→20:45)
[2022-06-09] MEDS: GABAPENTIN 600 MG TAB PO SCH (20:44)
[2022-06-09] MEDS: FINASTERIDE 5 MG TAB PO SCH (20:44)
[2022-06-09] MEDS: HYDROCODONE/ACETAMOPHEN 5/325MG TAB PO PRN (22:19)
[2022-06-09] MEDS: MELATONIN 3 MG TAB PO PRN (22:19)
[2022-06-10] MEDS: PSYLLIUM or GUAR GUM FIBER POWDER PACKET PO SCH (08:16)
[2022-06-10] MEDS: ADVANCED PROBIOTIC 1250 MG CAPSULE PO SCH (08:16)
[2022-06-10] MEDS: DAPTOmycin 325 MG in SYRINGE 0 ML IV SCH (08:16)
[2022-06-10] MEDS: POLYETHYLENE (MIRALAX) 17 GM PACK PO SCH (08:16)
[2022-06-10] MEDS: amLODIPine BESYLATE 5 MG TAB PO SCH (08:17)
[2022-06-10] MEDS: METOPROLOL SUCC 50MG EXT REL TAB PO SCH ×2 (08:17→20:55)
[2022-06-10] MEDS: APIXABAN 5 MG TABLET PO SCH ×2 (08:18→20:55)
--- NOTE | 2022-06-10 17:21 | Hospitalist Progress Note ---
Date of Service June 10, 2022 Assessment & Plan (1) Atrial fibrillation with rapid ventricular response: (2) Open wound of left heel: (3) COVID-19: (4) Elevated troponin I level: (5) HTN (hypertension): (6) Neuropathy: Plan: (1) Atrial fibrillation with rapid ventricular response: Plan: Admit to telemetry Patient recently admitted to [facility] [place] and was discharged to be cared for by his daughter who lives locally. Records requested from [facility] and [facility] where patient received care prior to going to [facility]. Patient states he does not like staying with his daughter and wants to go to a prison to be closer to his in [place], [place]. In the ED, patient found to be in A. fib with RVR. No prior history of. Received metoprolol 5 mg IV in the ED. Patient prescribed metoprolol succinate 50 mg twice daily, unclear if he has been taking. Will change to metoprolol tartrate 25 mg q6h and titrate accordingly. [id number] score 3, will start IV heparin Echo of the heart showedLV is normal in size with normal systolic function. EF 50 to 55%, RV systolic function is normal, left atrium is moderately dilated, right atrium is moderately dilated, and there is moderate mitral regurgitation Patient denies any symptoms of palpitation and/or chest pain Appreciate cardiology input and recommendation We will continue with beta-teri and will give Eliquis on discharge Heart rate remains stable without any cardiac symptoms No cardiac symptoms and the rate is controlled 06/10 HR controlled continue Metoprolol, Eliquis (2) Open wound of left heel: Plan: Pressure ulcer of left heel, stage 3, POA Per the staff at [facility], patient had a left heel wound while at their facility Patient states he had an MRI of his left heel a couple of weeks ago through the [facility] - records requested. Seems to have had a debridement done last week at the [facility]. No signs of osteo on XR today Wound does not appear to be infected, patient is afebrile, no leukocytosis Received IV Zosyn in the ED, will continue with IV cefazolin for now Obtain culture-grew Pseudomonas aeruginosa #1 and #2 #3 staphylococcal species Podiatry and wound care nurse consult Does not seems to be spreading infection 06/10 Wound Cx: (+) Pseudomonas, MRSA Blood cultures: Negative Outpatient records reviewed, no mention of osteomyelitis work-up/treatment No documentation of [facility] the [facility] -Discussed with ID Dr. Benson Recommend MRI of the foot with contrast to rule out osteomyelitis Message him with results for further advice regarding antibiotic regimen -Continue daptomycin plus cefepime Probiotics (3) COVID-19: Plan: Per the staff at [facility], patient tested positive for COVID-19 on 05/06 however this was via rapid in-house test. No documented lab result available. Patient continues to test positive for COVID-19 today, currently asymptomatic No COVID treatment is required and the patient remains totally asymptomatic No shortness of breath and is saturating normally on room air No respiratory symptoms CXR: 1. Mild interstitial prominence at the lung bases. This is likely due to vascular crowding from the low lung volumes. A low-grade interstitial pneumonitis could also have a similar appearance. 2. Mild cardiomegaly. Stable overall On room air Completed remdesivir day #5/5 Off isolation starting today (4) Elevated troponin I level: Plan: HS trop 50.1 Likely due to demand ischemia from A. fib RVR No reports of chest pain EKG does not show any acute ST changes Continue to trend-no ACS Elevated troponin due to demand ischemia (5) HTN (hypertension): Plan: BP controlled, continue amlodipine Metoprolol as above (6) Neuropathy: Plan: Continue gabapentin Per the staff at [facility], patient was undergoing nerve conduction studies to evaluate for his nonambulatory state Records requested (7) DVT prophylaxis: Plan: Eliquis (8) Discharge planning issues: Plan: CM on board SNF when medically stable (7) DVT prophylaxis: (8) Discharge planning issues: Admission and Anticipated Discharge Date Admission Date: May 31, 2022 Subjective Follow-up for left heel wound infection, atrial fibrillation, COVID infection, etc. Seen resting in bed, comfortable, watching TV States he feels fine overall No pain in the left foot No shortness of breath, cough, chest pain No other symptoms Review of Systems Review of Systems: all noted and negative except for above Physical Exam Physical Exam: General- oriented x 3, not in distress, speaks in sentences with no effort or accessory muscle use Eyes- anicteric Neck- no JVD Lungs- clear BS bilaterally Heart- normal rate, regular rhythm; no murmurs Abdomen- normal bowel sounds, nondistended, soft, nontender Extremities- no pretibial edema, no calf tenderness Left foot-no edema, dressing in place, no bleeding or discharge Neuro- alert, oriented x 3; no gross focal neurologic deficits Skin- warm & dry Results & Data Results & Data ([facility]) Vital Signs (Past 12 Hours) Vital Signs Temp Pulse Resp BP Pulse Ox O2 Del Method 06/10/22 15:28 36.9 C 72 18 112/74 98 Room Air 06/10/22 12:03 36.9 C 71 18 101/62 97 Room Air 06/10/22 08:00 Room Air 06/10/22 07:48 36.5 C 73 18 113/71 95 all noted and reviewed including below (1) Open wound of left heel Encounter type: initial encounter Qualified Code(s): S91.302A - Unspecified open wound, left foot, initial encounter
[2022-06-10] MEDS: CEFEPIME 2,000 MG in SYRINGE 0 ML IV SCH (18:20)
[2022-06-10] MEDS ORDERED: GADOBUTROL 65ML VIAL IV ONE (19:56)
[2022-06-10] MEDS: FINASTERIDE 5 MG TAB PO SCH (20:54)
[2022-06-10] MEDS: GABAPENTIN 600 MG TAB PO SCH (20:54)
[2022-06-10] MEDS: traMADol HCL 50 MG TABLET PO PRN (23:09)
[2022-06-10] MEDS: MELATONIN 3 MG TAB PO PRN (23:09)
[2022-06-11] MEDS: CEFEPIME 2,000 MG in SYRINGE 0 ML IV SCH ×2 (06:12→16:31)
[2022-06-11] MEDS: ACETAMINOPHEN 325 MG TAB PO PRN (09:30)
[2022-06-11] MEDS: ADVANCED PROBIOTIC 1250 MG CAPSULE PO SCH (09:32)
[2022-06-11] MEDS: APIXABAN 5 MG TABLET PO SCH (09:32)
[2022-06-11] MEDS: METOPROLOL SUCC 50MG EXT REL TAB PO SCH ×2 (09:32→22:12)
[2022-06-11] MEDS: amLODIPine BESYLATE 5 MG TAB PO SCH (09:33)
[2022-06-11] MEDS: PSYLLIUM or GUAR GUM FIBER POWDER PACKET PO SCH (09:33)
[2022-06-11] MEDS: POLYETHYLENE (MIRALAX) 17 GM PACK PO SCH (09:33)
--- NOTE | 2022-06-11 14:49 | Magnetic Resonance Report ---
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 COMPARISON: Left foot radiographs 05/31/2022 TECHNIQUE: Multiplanar multisequence MRI of the left ankle was obtained both with and without the use of 9 cc Gadavist FINDINGS: Motion degraded exam. 4 cm soft tissue ulceration of the posterior midline heel. There is skin thicke erica with moderate adjacent subcutaneous edema suggestive of cellulitis. No abscess. There is moderat e marrow edema involving the posterior calcaneal body with decreased T1 marrow signal and enhancement with posterior cortical irregularity notably involving the mid and posterolateral aspects seen best on the T1 series. Cortical erosion measures up to 2.2 cm transverse on image 31 series 11. No additio nal bony erosion or significant marrow edema identified. Atrophy of the intrinsic musculature suggestive of chronic denervation change. Mild tenosynovitis of the peroneal tendons. There is moderate thickening of the distal insertional Achilles tendon with are as of high-grade partial-thickness tearing noted both medially and laterally extending up to 2 cm in length. No full-thickness tear or tendon retraction. The remaining tendons and ligaments appear intac t. Moderate thickening of the plantar fascia, notably within the medial cord with large plantar calca ronald enthesophyte. Findings are compatible with chronic plantar fasciitis Mild multifocal osteoarthri tis. IMPRESSION: 1. Motion degraded exam. 2. Soft tissue ulcer of the posterior heel with acute calcaneal osteomyelitis . 3. Cellulitis without abscess. 4. Mild peroneal tenosynovitis. ACT 112: Negative or not required by law. The above report was generated using voice recognition software. It may contain grammatical, syntax o r spelling errors. Electronically signed by: Kai Vu M.D. 06/11/2022 2:46 PM
--- NOTE | 2022-06-11 15:22 | Hospitalist Progress Note ---
Date of Service June 11, 2022 Assessment & Plan (1) Atrial fibrillation with rapid ventricular response: (2) Open wound of left heel: (3) COVID-19: (4) Elevated troponin I level: (5) HTN (hypertension): (6) Neuropathy: Plan: (1) Atrial fibrillation with rapid ventricular response: Plan: Admit to telemetry Patient recently admitted to [facility] [place] and was discharged to be cared for by his daughter who lives locally. Records requested from [facility] and [facility] where patient received care prior to going to [facility]. Patient states he does not like staying with his daughter and wants to go to a shelter to be closer to his in [place], [place]. In the ED, patient found to be in A. fib with RVR. No prior history of. [id number] score 3, w Echo of the heart showedLV is normal in size with normal systolic function. EF 50 to 55%, RV systolic function is normal, left atrium is moderately dilated, right atrium is moderately dilated, and there is moderate mitral regurgitation Patient denies any symptoms of palpitation and/or chest pain Plan: -Currently rate controlled metoprolol succinate 50 twice daily and Eliquis 5 mg twice daily. -Continue to monitor on telemetry. (2) Open wound of left heel s/p Debridement on Acute Calcaneal Osteomyelitis Plan: Pressure ulcer of left heel, stage 3, POA Wound Cx: (+) Pseudomonas, MRSA Blood cultures: Negative Outpatient records reviewed, no mention of osteomyelitis work-up/treatment No documentation of left heel wound at the shelter back in April MRI ankle: Soft tissue ulcer of the posterior heel with acute calcaneal osteomyelitis. Plan: Restarted on daptomycin plus cefepime. Reached out to Dr. eBnson again with MRI findings; awaiting additional recommendation. Podiatry on board; will appreciate recommendation. (3) COVID-19: Plan: Per the staff at [facility], patient tested positive for COVID-19 on 05/06 however this was via rapid in-house test. No documented lab result available. Tested positive on admission; currently asymptomatic No COVID treatment is required and the patient remains totally asymptomatic No shortness of breath and is saturating normally on room air No respiratory symptomsy. Stable overall On room air Completed remdesivir day #5/5 Off isolation (4) Elevated troponin I level: Plan: HS trop 50.1 > 60 > 56 Likely due to demand ischemia from A. fib RVR No reports of chest pain EKG does not show any acute ST changes Continue to trend-no ACS Elevated troponin due to demand ischemia (5) HTN (hypertension): Plan: BP controlled, continue amlodipine Metoprolol as above (6) Neuropathy: Plan: Continue gabapentin Per the staff at [facility], patient was undergoing nerve conduction studies to evaluate for his nonambulatory state Records requested (7) DVT prophylaxis: Plan: Eliquis (8) Discharge planning issues: Plan: CM on board SNF when medically stable (7) DVT prophylaxis: (8) Discharge planning issues: Admission and Anticipated Discharge Date Admission Date: May 31, 2022 Subjective Patient was seen and examined at bedside. He is lying in the bed comfortably; not in any acute distress. Telemetry shows atrial fibrillation with ventricular rate in 70s to 80s. Review of Systems Review of Systems: All systems reviewed & are unremarkable except as noted in Subjective Physical Exam Physical Exam: General- oriented x 3, not in distress, speaks in sentences with no effort or accessory muscle use Eyes- anicteric Neck- no JVD Lungs- clear BS bilaterally Heart- normal rate, regular rhythm; no murmurs Abdomen- normal bowel sounds, nondistended, soft, nontender Extremities- no pretibial edema, no calf tenderness Left foot-no edema, dressing in place, no bleeding or discharge Neuro- alert, oriented x 3; no gross focal neurologic deficits Skin- warm & dry Results & Data Results & Data ([facility]) Vital Signs (Past 12 Hours) Vital Signs Temp Pulse Resp BP Pulse Ox O2 Del Method 06/11/22 11:40 36.5 C 76 105/58 L 93 Room Air 06/11/22 08:00 Room Air 06/11/22 06:38 36.6 C 70 18 106/60 96 06/11/22 03:46 36.3 C L 72 18 108/66 98 Room Air Laboratory Results Laboratory Results WBC 6.03 K/ul (4.8-10.8) 06/02/22 05:39 RBC 3.78 M/uL (4.63-6.08) L 06/02/22 05:39 Hgb 11.8 g/dl (14.0-18.0) L 06/02/22 05:39 Hct 35.8 % (40.1-51.0) L 06/02/22 05:39 MCV 94.7 fL (80.0-100.0) 06/02/22 05:39 MCH 31.2 pg (25.0-34.0) 06/02/22 05:39 MCHC 33.0 g/dL (32.0-36.0) 06/02/22 05:39 RDW Std Deviation 48.9 fL (36.4-46.3) H 06/02/22 05:39 RDW Coeff of Drake 14.3 % (11.5-14.5) 06/02/22 05:39 Plt Count 217 K/uL (130-400) 06/02/22 05:39 MPV 10.1 fL (9.4-12.4) 06/02/22 05:39 Immature Gran % (Auto) 1.3 % 06/02/22 05:39 Neut % (Auto) 67.5 % 06/02/22 05:39 Lymph % (Auto) 18.2 % 06/02/22 05:39 Hanson % (Auto) 8.3 % 06/02/22 05:39 Eos % (Auto) 4.0 % 06/02/22 05:39 Baso % (Auto) 0.7 % 06/02/22 05:39 Neut # (Auto) 4.07 K/uL (1.4-6.5) 06/02/22 05:39 Lymph # (Auto) 1.10 K/uL (1.2-3.4) L 06/02/22 05:39 Hanson # (Auto) 0.50 K/uL (0.24-0.82) 06/02/22 05:39 Eos # (Auto) 0.24 K/uL (0-0.50) 06/02/22 05:39 Baso # (Auto) 0.04 K/uL (0-0.2) 06/02/22 05:39 Immature Gran # (Auto) 0.08 K/uL (0.00-0.02) H 06/02/22 05:39 ESR 45 mm/hr (0-20) H 05/31/22 12:21 APTT 55.5 Seconds (21.0-31.0) H* 06/01/22 04:14 PTT Ratio 2.0 06/01/22 04:14 Sodium 135 mmol/L (136-145) L 06/08/22 05:58 Potassium 4.2 mmol/L (3.5-5.1) 06/08/22 05:58 Chloride 102 mmol/L (98-107) 06/08/22 05:58 Carbon Dioxide 29 mmol/L (21-32) 06/08/22 05:58 Anion Gap 4 (3-11) 06/08/22 05:58 BUN 31 mg/dl (6-23) H 06/08/22 05:58 Creatinine 0.84 mg/dl (0.6-1.4) 06/08/22 05:58 Est Cr Clr Drug Dosing 69.8 ml/min 06/08/22 05:58 Est GFR ( Amer) 91.2 ml/min 06/08/22 05:58 Est GFR (Non-Af Amer) 78.7 ml/min 06/08/22 05:58 BUN/Creatinine Ratio 36.9 (10-20) H 06/08/22 05:58 Glucose 99 mg/dl (70-99(Fasting)) 06/08/22 05:58 POC Glucose 163 mg/dl (70-99) H 06/10/22 13:44 Lactate 1.7 mmol/L (0.4-2.0) 05/31/22 12:21 Calcium 8.9 mg/dl (8.5-10.1) 06/08/22 05:58 Phosphorus 3.1 mg/dl (2.5-4.9) 06/02/22 05:39 Magnesium 1.9 mg/dl (1.7-2.4) 06/02/22 05:39 Total Bilirubin 0.3 mg/dl (0.2-1.0) 06/08/22 05:58 AST 17 U/L (13-39) 06/08/22 05:58 ALT 8 U/L (7-52) 06/08/22 05:58 Alkaline Phosphatase 71 U/L (34-104) 06/08/22 05:58 Troponin I High Sens 56.8 pg/ml (0-20) H* 05/31/22 23:34 C-Reactive Protein 1.34 mg/dl (0-0.5) H 05/31/22 12:21 Total Protein 5.8 gm/dl (6.0-8.3) L 06/08/22 05:58 Albumin 2.8 gm/dl (3.4-5.0) L 06/08/22 05:58 Globulin 3.0 gm/dl (2.5-4.0) 06/08/22 05:58 Albumin/Globulin Ratio 0.9 (0.9-2) 06/08/22 05:58 TSH 1.197 uIu/ml (0.300-4.500) 05/31/22 12:21 SARS-CoV-2, RNA, NAAT POSITIVE (NEGATIVE) A* 05/31/22 12:30 Impressions Foot X-Ray 05/31/22 12:03 XR foot LT min 3V routine CLINICAL HISTORY: heel wound. Assess for osteomyelitis. COMPARISON STUDY: None. FINDINGS: There is a 3 cm skin ulceration within the posterior heel. No underlying bony destruction to suggest an osteomyelitis. Small plantar and posterior calcaneal spurs. Calcific densities at the distal Achilles tendon and proximal plantar fascia which are likely chronic. No acute fracture or dislocation within the left foot. The Lisfranc joint is intact. Mild de generative changes are noted. IMPRESSION: 1. A 3 cm skin ulceration at the posterior heel. 2. No bony destruction to suggest an osteomyelitis. ACT 112: Negative or not required by law. Electronically signed by: Lefty Small M.D. 05/31/2022 12:42 PM Chest X-Ray 06/04/22 09:04 XR chest 1V portable HISTORY: covid infection, r/o pneumonia COMPARISON: None. FINDINGS: No pneumothorax. No pleural effusions. There is mild interstitial thickening at the lung bases. There are low lung volumes. The cardiac silhouette is mildly enlarged. There are calcified left hilar lymph nodes. IMPRESSION: 1. Mild interstitial prominence at the lung bases. This is likely due to vascular crowding from the low lung volumes. A low-grade interstitial pneumon itis could also have a similar appearance. 2. Mild cardiomegaly. ACT 112: Negative or not required by law. Electronically signed by: Lefty Small M.D. 06/04/2022 1:24 PM Ankle MRI 09/13/22 17:39 MR ankle LT wo/w con HISTORY: 87 years-old Male heel wound, r/o osteomyelitis chronic soft tissue wound of the hindfoot. COMPARISON: Left foot radiographs 05/31/2022 TECHNIQUE: Multiplanar multisequence MRI of the left ankle was obtained both with and without the use of 9 cc Gadavist FINDINGS: Motion degraded exam. 4 cm soft tissue ulceration of the posterior midline heel. There is skin thickening with moderate adjacent subcutaneous edema suggestive of cellulitis. No abscess. There is moderate marrow edema involving the posterior calcaneal body with decreased T1 marrow signal and enhancement with posterior cortical irregularity notably involving the mid and posterolateral aspects seen best on the T1 series. Cortical erosion measures up to 2.2 cm transverse on image 31 series 11. No additional bony erosion or significant marrow edema identified. Atrophy of the intrinsic musculature suggestive of chronic denervation change. Mild tenosynovitis of the peroneal tendons. There is moderate thickening of the distal insertional Achilles tendon with areas of high-grade partial-thickness tearing noted both medially and laterally extending up to 2 cm in length. No full-thickness tear or tendon retraction. The remaining tendons and ligaments appear intact. Moderate thickening of the plantar fascia, notably within the medial cord with large plantar calcaneal enthesophyte. Findings are compatible with chronic plantar fasciitis Mild multifocal osteoarthritis. IMPRESSION: 1. Motion degraded exam. 2. Soft tissue ulcer of the posterior heel with acute calcaneal osteomyelitis . 3. Cellulitis without abscess. 4. Mild peroneal tenosynovitis. ACT 112: Negative or not required by law. The above report was generated using voice recognition software. It may contain grammatical, syntax or spelling errors. Electronically signed by: Kai Vu M.D. 06/11/2022 2:46 PM (1) Open wound of left heel Encounter type: initial encounter Qualified Code(s): S91.302A - Unspecified open wound, left foot, initial encounter
[2022-06-11] MEDS: DAPTOmycin 575 MG in SYRINGE 0 ML IV SCH (16:30)
--- NOTE | 2022-06-11 20:01 | Orthopedic Consultation ---
Date of Consultation June 11, 2022 Assessment & Plan (1) Neuropathy: (2) Open wound of left heel: Patient seen, evaluated, and treated. I reviewed recent MRI images noting possible osteomyelitis of the left heel. Debridement of wound as well as bone biopsy is scheduled for 06/12/22. An attempt to remove acute osteomyelitic bone as well as obtain bone cultures for possible sensitives. I reviewed procedure in detail as well as postoperative recovery. I discussed expectations and patient's current weightbearing status. All questions answered. I have discussed procedure in detail as well as postoperative recovery. All potential risks, benefits, complications, alternatives, rehab, potential for incomplete relief of symptoms, need for further surgery, DVT, PE, , persistent pain, swelling, scarring, weakness, neurovascular, wound complications and potential for amputations were discussed with patient. Unwanted outcomes such as, but not limited to were reviewed including under correction, overcorrection, return of deformity, infection. All questions were answered. Patient has decided to proceed with procedure as indicated. History of Present Illness Attending Physician: Jessee Lundberg MD History of Present Illness Patient is an 87 year old male who has history of non healing left heel wound. Recent MRI shows possible OM of calcaneus. Patient is seen at bedside resting comfortably with no complaints. Allergies Allergy/AdvReac Type Severity Reaction Status Date / Time atorvastatin Allergy Unknown Unverified 05/31/22 14:45 Home Medications Medication Instructions Recorded Confirmed Type Lactobacillus acidophilus 2 tab PO DAILY 05/31/22 05/31/22 History amlodipine 2.5 mg tablet 2.5 mg PO DAILY 05/31/22 05/31/22 History aspirin 81 mg tablet,delayed 81 mg PO DAILY 05/31/22 05/31/22 History release finasteride 5 mg tablet 5 mg PO HS 05/31/22 05/31/22 History gabapentin 300 mg capsule 600 mg PO HS 05/31/22 05/31/22 History metoprolol succinate 50 mg 50 mg PO BID 05/31/22 05/31/22 History tablet,extended release 24 hr Patient History Medical History HTN (hypertension) Neuropathy Surgical History Hx of bilateral hip replacements Family History Mother Lymphoma Social History Smoking Status: Unknown if ever smoked Hx Alcohol Use: Yes Alcohol type: beer Alcohol Intake Frequency: Monthly or Less Hx Substance Use: No Preferred Language: Macanese Communication Ability: Effective Hotbed Transfer Operator Required: No Beliefs That Will Affect Care: None Current Living Situation Comment: Lives with daughter but does not want to live with her anymore Feels Safe at Home: Yes Assistive Devices: Wheelchair Review of Systems Review of Systems: All systems reviewed & are unremarkable except as noted in Subjective Physical Exam Physical Exam: INTEGUMENT: Atrophic changes noted to legs and feet. No signs or symptoms of infection were noted or reported. VASCULAR: Capillary refill time within normal limits. Absence of leg and pedal hair. Proximal distal cooling within normal limits. MUSCULOSKELETAL: No gross deformity. Digital contractures 2 through 5 adductovarus fifth toes. NEUROLOGIC: Absent epicritic sensation CONSTITUTIONAL: Patient denies constitutional symptoms PSYCH: Normal affect and demeanor Focused Exam: Wound location: Left retro calcaneal heel Wound base color and depth: Full thickness with achilles tendon exposed Wound size (cm): roughly 4.5 x 4.5 x 0.5 cm Odor: no malodor Drainage: moderate serous Undermining: none Borders: slightly macerated Results & Data ([facility]) Vital Signs (Past 12 Hours) Vital Signs Temp Pulse Resp BP Pulse Ox O2 Del Method 06/11/22 19:13 36.4 C L 75 20 108/69 95 Room Air 06/11/22 15:31 36.4 C L 65 20 108/71 92 Room Air 06/11/22 11:40 36.5 C 76 105/58 L 93 Room Air 06/11/22 08:00 Room Air Diagnostic Findings HISTORY: 87 years-old Male heel wound, r/o osteomyelitis chronic soft tissue wound of the hindfoot. COMPARISON: Left foot radiographs 05/31/2022 TECHNIQUE: Multiplanar multisequence MRI of the left ankle was obtained both with and without the use of 9 cc Gadavist FINDINGS: Motion degraded exam. 4 cm soft tissue ulceration of the posterior midline heel. There is skin thickening with moderate adjacent subcutaneous edema suggestive of cellulitis. No abscess. There is moderate marrow edema involving the posterior calcaneal body with decreased T1 marrow signal and enhancement with posterior cortical irregularity notably involving the mid and posterolateral aspects seen best on the T1 series. Cortical erosion measures up to 2.2 cm transverse on image 31 series 11. No additional bony erosion or significant marrow edema identified. Atrophy of the intrinsic musculature suggestive of chronic denervation change. Mild tenosynovitis of the peroneal tendons. There is moderate thickening of the distal insertional Achilles tendon with areas of high-grade partial-thickness tearing noted both medially and laterally extending up to 2 cm in length. No full-thickness tear or tendon retraction. The remaining tendons and ligaments appear intact. Moderate thickening of the plantar fascia, notably within the medial cord with large plantar calcaneal enthesophyte. Findings are compatible with chronic plantar fasciitis Mild multifocal osteoarthritis. IMPRESSION: 1. Motion degraded exam. 2. Soft tissue ulcer of the posterior heel with acute calcaneal osteomyelitis . 3. Cellulitis without abscess. 4. Mild peroneal tenosynovitis. ACT 112: Negative or not required by law. The above report was generated using voice recognition software. It may contain grammatical, syntax or spelling errors. Electronically signed by: Kai Vu M.D. 06/11/2022 2:46 PM (1) Open wound of left heel Encounter type: initial encounter Qualified Code(s): S91.302A - Unspecified open wound, left foot, initial encounter
[2022-06-11] MEDS: MELATONIN 3 MG TAB PO PRN (22:13)
[2022-06-11] MEDS: GABAPENTIN 600 MG TAB PO SCH (22:13)
[2022-06-11] MEDS: FINASTERIDE 5 MG TAB PO SCH (22:13)
[2022-06-11] MEDS: traMADol HCL 50 MG TABLET PO PRN (22:13)
[2022-06-12] MEDS: CEFEPIME 2,000 MG in SYRINGE 0 ML IV SCH ×4 (01:31→23:23)
[2022-06-12 07:48] LABS: Basophils # (auto) 0.08 K/uL (0-0.2); Basophils % (auto) 1.3 %; Eosinophils # (auto) 0.25 K/uL (0-0.50); Eosinophils % (auto) 4.1 %; Hematocrit (blood only) 38.9 % (40.1-51.0); Hemoglobin 12.7 g/dl (14.0-18.0); Immature Granulocytes # (auto) 0.08 K/uL (0.00-0.02); Immature Granulocytes % (auto) 1.3 %; Lymphocytes # (auto) 1.09 K/uL (1.2-3.4); Lymphocytes % (auto) 17.8 %; Mean Corpuscular Hemoglobin 30.9 pg (25.0-34.0); Mean Corpuscular Hgb Conc 32.6 g/dL (32.0-36.0); Mean Corpuscular Volume 94.6 fL (80.0-100.0); Mean Platelet Volume 10.1 fL (9.4-12.4); Monocytes # (auto) 0.52 K/uL (0.24-0.82); Monocytes % (auto) 8.5 %; Platelet Count 229 K/uL (130-400); RDW Coefficient of Variation 14.8 % (11.5-14.5); RDW Standard Deviation 50.4 fL (36.4-46.3); Red Blood Count 4.11 M/uL (4.63-6.08); White Blood Count 6.12 K/ul (4.8-10.8)
[2022-06-12 08:22] LABS: Albumin Level 2.9 gm/dl (3.4-5.0); BUN Creatinine Ratio 32.5 (10-20); Bilirubin,Total 0.4 mg/dl (0.2-1.0); C Reactive Protein 1.64 mg/dl (0-0.5); Calcium 8.9 mg/dl (8.5-10.1); Creatinine Clr Calc Pharmacy 72.8 ml/min; Est GFR (African American) 91.7 ml/min; Est GFR (Non-African American) 79.1 ml/min; Globulin 2.9 gm/dl (2.5-4.0); Potassium 4.5 mmol/L (3.5-5.1); Total Protein 5.8 gm/dl (6.0-8.3)
[2022-06-12] MEDS: METOPROLOL SUCC 50MG EXT REL TAB PO SCH ×2 (08:31→23:17)
[2022-06-12] MEDS: ADVANCED PROBIOTIC 1250 MG CAPSULE PO SCH (08:32)
[2022-06-12] MEDS: amLODIPine BESYLATE 5 MG TAB PO SCH (08:32)
[2022-06-12] MEDS: POLYETHYLENE (MIRALAX) 17 GM PACK PO SCH (08:33)
[2022-06-12] MEDS: PSYLLIUM or GUAR GUM FIBER POWDER PACKET PO SCH (08:34)
--- NOTE | 2022-06-12 15:00 | Hospitalist Progress Note ---
Date of Service June 12, 2022 Assessment & Plan (1) Atrial fibrillation with rapid ventricular response: (2) Open wound of left heel: (3) COVID-19: (4) Elevated troponin I level: (5) HTN (hypertension): (6) Neuropathy: Plan: (1) Atrial fibrillation with rapid ventricular response: Plan: Admit to telemetry Patient recently admitted to [facility] [place] and was discharged to be cared for by his daughter who lives locally. Records requested from [facility] and [facility] where patient received care prior to going to [facility]. Patient states he does not like staying with his daughter and wants to go to a detention to be closer to his in [place], [place]. In the ED, patient found to be in A. fib with RVR. No prior history of. [id number] score 3, w Echo of the heart showedLV is normal in size with normal systolic function. EF 50 to 55%, RV systolic function is normal, left atrium is moderately dilated, right atrium is moderately dilated, and there is moderate mitral regurgitation Patient denies any symptoms of palpitation and/or chest pain Plan: -Currently rate controlled metoprolol succinate 50 twice daily. His Eliquis is on hold for possible bone biopsy today. -Continue to monitor on telemetry. (2) Open wound of left heel s/p Debridement on Acute Calcaneal Osteomyelitis Plan: Pressure ulcer of left heel, stage 3, POA Wound Cx: (+) Pseudomonas, MRSA Blood cultures: Negative Outpatient records reviewed, no mention of osteomyelitis work-up/treatment No documentation of left heel wound at the detention back in April MRI ankle: Soft tissue ulcer of the posterior heel with acute calcaneal osteomyelitis. Plan: Restarted on daptomycin plus cefepime. CK is 23. Discussed with infectious disease; recommended 6 weeks of antibiotics. Patient to undergo bone biopsy today for definitive diagnosis and to guide therapy. (3) COVID-19: Plan: Per the staff at [facility], patient tested positive for COVID-19 on 05/06 however this was via rapid in-house test. No documented lab result available. Tested positive on admission; currently asymptomatic No COVID treatment is required and the patient remains totally asymptomatic No shortness of breath and is saturating normally on room air No respiratory symptomsy. Stable overall On room air Completed remdesivir day #5/5 Off isolation (4) Elevated troponin I level: Plan: HS trop 50.1 > 60 > 56 Likely due to demand ischemia from A. fib RVR No reports of chest pain EKG does not show any acute ST changes Continue to trend-no ACS Elevated troponin due to demand ischemia (5) HTN (hypertension): Plan: BP controlled, continue amlodipine Metoprolol as above (6) Neuropathy: Plan: Continue gabapentin Per the staff at [facility], patient was undergoing nerve conduction studies to evaluate for his nonambulatory state Records requested (7) DVT prophylaxis: Plan: Eliquis on hold (8) Discharge planning issues: Plan: CM on board SNF when medically stable (7) DVT prophylaxis: (8) Discharge planning issues: Admission and Anticipated Discharge Date Admission Date: May 31, 2022 Subjective Patient seen and examined at bedside. He is comfortably lying on the bed; not in any distress. Patient is hesitant to undergo bone biopsy. Discussed and reiterated importance of bone biopsy for definitive diagnosis and to guide therapy. He asked me to discuss with her daughter Angeline who is a nurse practitioner. Discussed with Angeline over the phone regarding patient current hospitalization. Updated and answered questions. Patient wanted to discuss further with Dr. Kay regarding the procedure. Review of Systems Review of Systems: All systems reviewed & are unremarkable except as noted in Subjective Physical Exam Physical Exam: General- oriented x 3, not in distress, speaks in sentences with no effort or accessory muscle use Eyes- anicteric Neck- no JVD Lungs- clear BS bilaterally Heart- normal rate, regular rhythm; no murmurs Abdomen- normal bowel sounds, nondistended, soft, nontender Extremities- no pretibial edema, no calf tenderness Left foot-no edema, dressing in place, no bleeding or discharge Neuro- alert, oriented x 3; no gross focal neurologic deficits Skin- warm & dry Results & Data Results & Data ([facility]) Vital Signs (Past 12 Hours) Vital Signs Temp Pulse Pulse Resp BP Pulse Ox O2 Del Method 06/12/22 11:14 36.6 C 75 20 108/67 95 Room Air 06/12/22 08:00 Room Air 06/12/22 07:57 36.6 C 69 18 113/74 91 Room Air 06/12/22 03:22 36.6 C 74 20 127/70 98 Laboratory Results Laboratory Results WBC 6.12 K/ul (4.8-10.8) 06/12/22 07:06 RBC 4.11 M/uL (4.63-6.08) L 06/12/22 07:06 Hgb 12.7 g/dl (14.0-18.0) L 06/12/22 07:06 Hct 38.9 % (40.1-51.0) L 06/12/22 07:06 MCV 94.6 fL (80.0-100.0) 06/12/22 07:06 MCH 30.9 pg (25.0-34.0) 06/12/22 07:06 MCHC 32.6 g/dL (32.0-36.0) 06/12/22 07:06 RDW Std Deviation 50.4 fL (36.4-46.3) H 06/12/22 07:06 RDW Coeff of Drake 14.8 % (11.5-14.5) H 06/12/22 07:06 Plt Count 229 K/uL (130-400) 06/12/22 07:06 MPV 10.1 fL (9.4-12.4) 06/12/22 07:06 Immature Gran % (Auto) 1.3 % 06/12/22 07:06 Neut % (Auto) 67.0 % 06/12/22 07:06 Lymph % (Auto) 17.8 % 06/12/22 07:06 Greer % (Auto) 8.5 % 06/12/22 07:06 Eos % (Auto) 4.1 % 06/12/22 07:06 Baso % (Auto) 1.3 % 06/12/22 07:06 Neut # (Auto) 4.10 K/uL (1.4-6.5) 06/12/22 07:06 Lymph # (Auto) 1.09 K/uL (1.2-3.4) L 06/12/22 07:06 Greer # (Auto) 0.52 K/uL (0.24-0.82) 06/12/22 07:06 Eos # (Auto) 0.25 K/uL (0-0.50) 06/12/22 07:06 Baso # (Auto) 0.08 K/uL (0-0.2) 06/12/22 07:06 Immature Gran # (Auto) 0.08 K/uL (0.00-0.02) H 06/12/22 07:06 ESR 45 mm/hr (0-20) H 06/12/22 07:06 APTT 55.5 Seconds (21.0-31.0) H* 06/01/22 04:14 PTT Ratio 2.0 06/01/22 04:14 Sodium 136 mmol/L (136-145) 06/12/22 07:06 Potassium 4.5 mmol/L (3.5-5.1) 06/12/22 07:06 Chloride 103 mmol/L (98-107) 06/12/22 07:06 Carbon Dioxide 29 mmol/L (21-32) 06/12/22 07:06 Anion Gap 4 (3-11) 06/12/22 07:06 BUN 27 mg/dl (6-23) H 06/12/22 07:06 Creatinine 0.83 mg/dl (0.6-1.4) 06/12/22 07:06 Est Cr Clr Drug Dosing 72.8 ml/min 06/12/22 07:06 Est GFR ( Amer) 91.7 ml/min 06/12/22 07:06 Est GFR (Non-Af Amer) 79.1 ml/min 06/12/22 07:06 BUN/Creatinine Ratio 32.5 (10-20) H 06/12/22 07:06 Glucose 92 mg/dl (70-99(Fasting)) 06/12/22 07:06 POC Glucose 163 mg/dl (70-99) H 06/10/22 13:44 Lactate 1.7 mmol/L (0.4-2.0) 05/31/22 12:21 Calcium 8.9 mg/dl (8.5-10.1) 06/12/22 07:06 Phosphorus 3.1 mg/dl (2.5-4.9) 06/02/22 05:39 Magnesium 1.9 mg/dl (1.7-2.4) 06/02/22 05:39 Total Bilirubin 0.4 mg/dl (0.2-1.0) 06/12/22 07:06 AST 17 U/L (13-39) 06/12/22 07:06 ALT 11 U/L (7-52) 06/12/22 07:06 Alkaline Phosphatase 79 U/L (34-104) 06/12/22 07:06 Total Creatine Kinase 23 U/L (30-223) L 06/12/22 07:06 Troponin I High Sens 56.8 pg/ml (0-20) H* 05/31/22 23:34 C-Reactive Protein 1.64 mg/dl (0-0.5) H 06/12/22 07:06 Total Protein 5.8 gm/dl (6.0-8.3) L 06/12/22 07:06 Albumin 2.9 gm/dl (3.4-5.0) L 06/12/22 07:06 Globulin 2.9 gm/dl (2.5-4.0) 06/12/22 07:06 Albumin/Globulin Ratio 1.0 (0.9-2) 06/12/22 07:06 TSH 1.197 uIu/ml (0.300-4.500) 05/31/22 12:21 SARS-CoV-2, RNA, NAAT POSITIVE (NEGATIVE) A* 05/31/22 12:30 Impressions Foot X-Ray 05/31/22 12:03 XR foot LT min 3V routine CLINICAL HISTORY: heel wound. Assess for osteomyelitis. COMPARISON STUDY: None. FINDINGS: There is a 3 cm skin ulceration within the posterior heel. No underlying bony destruction to suggest an osteomyelitis. Small plantar and posterior calcaneal spurs. Calcific densities at the distal Achilles tendon and proximal plantar fascia which are likely chronic. No acute fracture or d islocation within the left foot. The Lisfranc joint is intact. Mild degenerative changes are noted. IMPRESSION: 1. A 3 cm skin ulceration at the posterior heel. 2. No bony destruction to suggest an osteomyelitis. ACT 112: Negative or not required by law. Electronically signed by: Lefty Small M.D. 05/31/2022 12:42 PM Chest X-Ray 06/04/22 09:04 XR chest 1V portable HISTORY: covid infection, r/o pneumonia COMPARISON: None. FINDINGS: No pneumothorax. No pleural effusions. There is mild interstitial thickening at the lung bases. There are low lung volumes. The cardiac silhouette is mildly enlarged. There are calcified left hilar lymph nodes. IMPRESSION: 1. Mild interstitial prominence at the lung bases. This is likely due to vascula r crowding from the low lung volumes. A low-grade interstitial pneumonitis could also have a similar appearance. 2. Mild cardiomegaly. ACT 112: Negative or not required by law. Electronically signed by: Lefty Small M.D. 06/04/2022 1:24 PM Ankle MRI 06/10/22 17:39 MR ankle LT wo/w con HISTORY: 87 years-old Male heel wound, r/o osteomyelitis chronic soft tissue wound of the hindfoot. COMPARISON: Left foot radiographs 05/31/2022 TECHNIQUE: Multiplanar multisequence MRI of the left ankle was obtained both with and without the use of 9 cc Gadavist FINDINGS: Motion degraded exam. 4 cm soft tissue ulceration of the posterior midline heel. There is skin thickening with moderate adjacent subcutaneous edema suggestive of cellulitis. No abscess. There is moderate marrow edema involving the posterior calcaneal body with decreased T1 marrow signal and enhancement with posterior cortical irregularity notably involving the mid and posterolateral aspects seen best on the T1 series. Cortical erosion measures up to 2.2 cm transverse on image 31 series 11. No additional bony erosion or significant marrow edema identified. Atrophy of the intrinsic musculature suggestive of chronic denervation change. Mild tenosynovitis of the peroneal tendons. There is moderate thickening of the distal insertional Achilles tendon with areas of high-grade partial-thickness tearing noted both medially and laterally extending up to 2 cm in length. No full-thickness tear or tendon retraction. The remaining tendons and ligaments appear intact. Moderate thickening of the plantar fascia, notably within the medial cord with large plantar calcaneal enthesophyte. Findings are compatible with chronic plantar fasciitis Mild multifocal osteoarthritis. IMPRESSION: 1. Motion degraded exam. 2. Soft tissue ulcer of the posterior heel with acute calcaneal osteomyelitis . 3. Cellulitis without abscess. 4. Mild peroneal tenosynovitis. ACT 112: Negative or not required by law. The above report was generated using voice recognition software. It may contain grammatical, syntax or spelling errors. Electronically signed by: Kai Vu M.D. 06/11/2022 2:46 PM (1) Open wound of left heel Encounter type: initial encounter Qualified Code(s): S91.302A - Unspecified open wound, left foot, initial encounter
[2022-06-12] MEDS: DAPTOmycin 575 MG in SYRINGE 0 ML IV SCH (15:41)
--- NOTE | 2022-06-12 16:46 | Anesthesiology Consultation ---
Date of Service June 12, 2022 Assessment & Plan (1) Encounter for pre-operative examination: Chart Review Chart Review: Acceptable Risk for Surgery and Patient NOT seen in Pre Admission Testing Consults Requested none History Surgery Operation Date: 06/12/22 12:40 Proposed Procedures p Left Calcaneal Bone Biopsy - Khoa Kay, TAZM, MS Height/Weight Height: 5 ft 10 in Weight: 95.7 kg Allergies Allergy/AdvReac Type Severity Reaction Status Date / Time atorvastatin Allergy Unknown Unverified 05/31/22 14:45 Medications Home Medications Medication Instructions Recorded Confirmed Last Taken Lactobacillus acidophilus 2 tab PO DAILY 05/31/22 05/31/22 Unknown amlodipine 2.5 mg tablet 2.5 mg PO DAILY 05/31/22 05/31/22 Unknown aspirin 81 mg tablet,delayed 81 mg PO DAILY 05/31/22 05/31/22 Unknown release finasteride 5 mg tablet 5 mg PO HS 05/31/22 05/31/22 Unknown gabapentin 300 mg capsule 600 mg PO HS 05/31/22 05/31/22 Unknown metoprolol succinate 50 mg 50 mg PO BID 05/31/22 05/31/22 Unknown tablet,extended release 24 hr Active Medications Generic Name Dose Route Start Last Admin Trade Name Freq PRN Reason Stop Dose Admin Acetaminophen 650 mg 05/31/22 15:08 06/11/22 09:30 Acetaminophen 325 Mg Tab PO 06/30/22 15:07 650 mg Q4H PRN Administration Pain or Fever Amlodipine Besylate 2.5 mg 06/01/22 09:00 06/12/22 08:32 Amlodipine Besylate 5 Mg Tab PO 07/01/22 08:59 2.5 mg DAILY LINDSEY Administration Finasteride 5 mg 05/31/22 21:00 06/11/22 22:13 Finasteride 5 Mg Tab PO 06/30/22 20:59 5 mg HS LINDSEY Administration Gabapentin 600 mg 05/31/22 21:00 06/11/22 22:13 Gabapentin 600 Mg Tab PO 06/30/22 20:59 600 mg HS LINDSEY Administration Daptomycin 575 mg/ Syringe 11.5 mls @ 5 mls/min 06/11/22 16:00 06/12/22 15:41 IV 07/23/22 15:59 5 mls/min Q24H LINDSEY Administration Protocol Cefepime HCl 2,000 mg/ Syringe 20 mls @ 5 mls/min 06/11/22 16:00 06/12/22 15:41 IV 07/23/22 15:59 5 mls/min Q8H LINDSEY Administration Protocol Lactobacillus Acidophilus 2 cap 06/08/22 09:00 06/12/22 08:32 Advanced Probiotic 1250 Mg Capsule PO 07/08/22 08:59 2 cap DAILY LINDSEY Administration Melatonin 6 mg 05/31/22 23:36 06/11/22 22:13 Melatonin 3 Mg Tab PO 06/30/22 19:53 6 mg HS PRN Administration Sleep Metoprolol Succinate 50 mg 06/01/22 21:00 06/12/22 08:31 Metoprolol Succ 50mg Ext Rel Tab PO 07/01/22 20:59 50 mg BID LINDSEY Administration Polyethylene Glycol 17 gm 06/04/22 10:00 06/12/22 08:33 Polyethylene (Miralax) 17 Gm Pack PO 07/04/22 09:59 17 gm DAILY LINDSEY Administration Psyllium Hydrophilic Mucilloid 1 pkt 06/01/22 09:00 06/12/22 08:34 Psyllium Or Guar Gum Fiber Powder Packet PO 07/01/22 08:59 1 pkt QAM LINDSEY Administration Tramadol HCl 50 mg 06/05/22 00:29 06/11/22 22:13 Tramadol Hcl 50 Mg Tablet PO 07/05/22 00:28 50 mg Q8H PRN Administration Pain Past Medical History Medical History (Updated 06/12/22 @ 16:46 by Konrad Aiken MD) Atrial fibrillation with rapid ventricular response Troponins were elevated and thought to be 2/2 demand related ischemia 2/2 A fib with RVR. HTN (hypertension) Neuropathy Open wound of left heel (2) Open wound of left heel s/p Debridement on Acute Calcaneal Osteomyelitis Plan: Pressure ulcer of left heel, stage 3, POA Wound Cx: (+) Pseudomonas, MRSA Blood cultures: Negative Outpatient records reviewed, no mention of osteomyelitis work-up/treatment No documentation of left heel wound at the correction back in April MRI ankle: Soft tissue ulcer of the posterior heel with acute calcaneal osteomyelitis. Plan: Restarted on daptomycin plus cefepime. CK is 23. Discussed with infectious disease; recommended 6 weeks of antibiotics. Patient to undergo bone biopsy today for definitive diagnosis and to guide therapy. Hospitalist note 06/12/22: 1) Atrial fibrillation with rapid ventricular response: Plan: Admit to telemetry Patient recently admitted to [facility] [place] and was discharged to be cared for by his daughter who lives locally. Records requested from [facility] and [facility] where patient received care prior to going to [facility]. Patient states he does not like staying with his daughter and wants to go to a correction to be closer to his in [place], [place]. In the ED, patient found to be in A. fib with RVR. No prior history of. [id number] score 3, w Echo of the heart showedLV is normal in size with normal systolic function. EF 50 to 55%, RV systolic function is normal, left atrium is moderately dilated, right atrium is moderately dilated, and there is moderate mitral regurgitation Patient denies any symptoms of palpitation and/or chest pain Plan: -Currently rate controlled metoprolol succinate 50 twice daily. His Eliquis is on hold for possible bone biopsy today. -Continue to monitor on telemetry. Past Family History Family History Mother Lymphoma Past Surgical History Surgical History Hx of bilateral hip replacements Social History Smoking Status: Unknown if ever smoked Hx Alcohol Use: Yes Alcohol type: beer Alcohol Intake Frequency Comment: unknown Hx Substance Use: No Physical Exam Vital Signs Last Vital Signs Temp 36.4 C L 06/12/22 15:42 Pulse 41 L 06/12/22 15:42 Resp 20 06/12/22 15:42 BP 143/75 H 06/12/22 15:42 Pulse Ox 93 06/12/22 15:42 O2 Del Method 06/12/22 15:42 Testing Laboratory Results 06/12/22 07:06 06/12/22 07:06 APTT 55.5 Seconds (21.0-31.0) H* 06/01/22 04:14 05/31/22 12:11 Aerobic Blood Culture - Final Blood No growth in Aerobic bottle after 5 days. Anaerobic Blood Culture - Final No growth in Anaerobic bottle after 5 days. 05/31/22 12:21 Aerobic Blood Culture - Final Blood No growth in Aerobic bottle after 5 days. Anaerobic Blood Culture - Final No growth in Anaerobic bottle after 5 days. 05/31/22 11:58 Gram Stain - Final Foot,Left Wound Culture - Final Pseudomonas aeruginosa Pseudomonas aeruginosa#2 Staph aureus MRSA Electrocardiogram Date: 06/02/22 DICTATED BY:Luiz Holbrook MD Test Reason : Blood Pressure : / mmHG Vent. Rate : 065 BPM Atrial Rate : 073 BPM P-R Int : 000 ms QRS Dur : 086 ms QT Int : 430 ms P-R-T Axes : 000 -11 033 degrees QTc Int : 447 ms Atrial fibrillation Abnormal ECG When compared with ECG of 01-JUN-2022 05:04, Criteria for Septal infarct are no longer Present Confirmed by Luiz Holbrook ([id number]) on 06/03/2022 11:21:39 AM Chest X-Ray Date: 05/31/22 XR chest 1V portable HISTORY: covid infection, r/o pneumonia COMPARISON: None. FINDINGS: No pneumothorax. No pleural effusions. There is mild interstitial thickening at the lung bases. There are low lung volumes. The cardiac silhouette is mildly enlarged. There are calcified left hilar lymph nodes. IMPRESSION: 1. Mild interstitial prominence at the lung bases. This is likely due to vascular crowding from the low lung volumes. A low-grade interstitial pneumonitis could also have a similar appearance. 2. Mild cardiomegaly.
[2022-06-12] MEDS ORDERED: ATROPINE SULFATE 0.1 MG/ML 10ML SYR IV PRN (21:07)
[2022-06-12] MEDS ORDERED: ePHEDrine sulfate 50 MG/ML AMP IV PRN (21:07)
[2022-06-12] MEDS ORDERED: fentaNYL citrate 100 MCG/2 ML VIAL IV PRN (21:07)
[2022-06-12] MEDS ORDERED: ONDANSETRON INJ 2 MG/ML 2 ML VIAL IV PRN (21:07)
--- NOTE | 2022-06-12 21:20 | History & Physical Bridge Note ---
Date of Service June 12, 2022 History & Physical Bridge Note I have examined the patient, reviewed the History & Physical and in the interval since the performance of the History & Physical I have noted the following changes of clinical significance: no changes noted
[2022-06-12] MEDS ORDERED: MIDAZOLAM HCL 1 MG/ML 2ML VIAL ONE (21:32)
[2022-06-12] MEDS ORDERED: fentaNYL citrate 100 MCG/2 ML VIAL ONE (21:33)
[2022-06-12] MEDS ORDERED: PROPOFOL IV EMULSION 10 MG/ML 20 ML VIAL IV ONE (21:36)
[2022-06-12] MEDS ORDERED: LIDOCAINE 1% LOCAL 20 ML VIAL INJ ONE (21:58)
--- NOTE | 2022-06-12 22:01 | Post Operative Brief Note ---
Immediate Post Op Note v1 Date of Surgery June 12, 2022 Pre & Post Diagnosis Operation Date: 06/12/22 12:40 Pre-Op Diagnosis: Neuropathy; Open wound of left heel Post-Op Diagnosis: Neuropathy; Open wound of left heel I identified the patient and participated in the time-out.: Yes Procedure Operation Date: 06/12/22 12:40 Actual Procedures p Wound debridement and Bone Biopsy, Left foot(Left) - Khoa Kay DPM, MS Surgeon Khoa Kay DPM, MS Truck Crane Operator None Estimated Blood Loss 0 Findings Consistent with Post-Op Diagnosis none
--- NOTE | 2022-06-12 22:04 | Operative Report ---
Post Operative Report Pre & Post Diagnosis Operation Date: 06/12/22 12:40 Pre-Op Diagnosis: Neuropathy; Open wound of left heel Post-Op Diagnosis: Neuropathy; Open wound of left heel I identified the patient and participated in the time-out.: Yes Procedure Operation Date: 06/12/22 12:40 Actual Procedures p Wound debridement and Bone Biopsy, Left foot(Left) - Khoa Kay DPM, MS Surgeon Khoa Kay DPM, MS Senior [employer] Soa Developer None Estimated Blood Loss 0 Findings Consistent with Post-Op Diagnosis None Specimens Bone calcaneus Left - Path and Micro Description of Procedure History of present illness: Patient is a 87 year old male who is seen for treatment of left heel ulcer. Patient recent MRI shows positive bone erosion and edema in calcaneus. He is seen for bone biopsy to rule out Osteomyelitis. I have spoken with Daughter Angeline as well as Patient about procedure. All questions answered. Discussed procedure in detail and postoperative recovery. All potential risks, benefits, complications, alternatives, rehab, potential for incomplete relief of symptoms, need for further surgery, DVT, PE, , persistent pain, swelling, scarring, weakness, neurovascular, wound complications and potential for amputations were discussed with patient. Unwanted outcomes such as, but not limited to were reviewed including under correction, overcorrection, return of deformity, infection. All questions were answered. Patient has decided to proceed with procedure as indicated. Preoperative diagnosis: Ulcer left Heel Postoperative diagnosis: same Name of operation: 1.) left wound debridement 2.) Left calcaneus bone biopsy Surgeon Dr. Kay Senior [employer] Soa Developer: None Anesthesia: None Hemostasis: None Estimated blood loss: minimal Procedure in detail: Under mild sedation the patient was brought in the operating room placed on the operating table in supine position. Following IV sedation local anesthesia was obtained about the left heel ray utilizing 10 cc of 1% lidocaine plain. The foot was then prepped scrubbed and draped in usual aseptic manner. Attention was then directed to a nonhealing ulcer on the left heel. The heel ulcer measures roughly 4.5 cm x 4.5 cm x 0.5cm. There is granulation tissue as well as exposed Achilles tendon. Utilizing a sharp, sterile, #15 blade devitalized tissue from wound bed is removed including tendon. Post debridement measurements of the wound are roughly 4.5cm x 4.5cm x 0.5cm. At this time utilizing a needle bone biopsy kit bone from calcaneus of left foot is harvested and placed in formalin labeled and sent to pathology and bone from left calcaneus is harvested and also sent to microbiology for cultures and sensitivities. Copious amounts of normal saline were utilized to flush the wound. Upon completion of the procedure the incision was dressed with sterile compressive dressing consisting of 4 x 4's Gilbert Kerlix The Patient tolerated the procedure and anesthesia well. He was transferred to recovery room vital signs stable and vascular status intact all toes of the left foot following. Postoperative monitoring the patient will be re-admitted to the floor resuming all pre operative orders. I attest to the content of the Intraoperative Record and any orders documented therein. Any exceptions are noted below.
[2022-06-12] MEDS: GABAPENTIN 600 MG TAB PO SCH (23:16)
[2022-06-12] MEDS: FINASTERIDE 5 MG TAB PO SCH (23:17)
[2022-06-12] MEDS: traMADol HCL 50 MG TABLET PO PRN (23:23)
[2022-06-13] MEDS: ACETAMINOPHEN 325 MG TAB PO PRN (04:00)
[2022-06-13 06:33] LABS: Basophils % (auto) 1.4 %; Eosinophils # (auto) 0.23 K/uL (0-0.50); Eosinophils % (auto) 3.3 %; Hematocrit (blood only) 38.4 % (40.1-51.0); Hemoglobin 12.7 g/dl (14.0-18.0); Immature Granulocytes # (auto) 0.11 K/uL (0.00-0.02); Immature Granulocytes % (auto) 1.6 %; Lymphocytes % (auto) 15.9 %; Mean Corpuscular Hgb Conc 33.1 g/dL (32.0-36.0); Mean Corpuscular Volume 93.7 fL (80.0-100.0); Monocytes # (auto) 0.72 K/uL (0.24-0.82); Monocytes % (auto) 10.4 %; Neutrophils # (auto) 4.67 K/uL (1.4-6.5); Neutrophils % (auto) 67.4 %; Platelet Count 236 K/uL (130-400); RDW Coefficient of Variation 14.7 % (11.5-14.5); White Blood Count 6.93 K/ul (4.8-10.8)
[2022-06-13 07:03] LABS: Albumin Level 2.8 gm/dl (3.4-5.0); BUN Creatinine Ratio 29.1 (10-20); Bilirubin,Total 0.4 mg/dl (0.2-1.0); Calcium 8.8 mg/dl (8.5-10.1); Creatinine Clr Calc Pharmacy 58.3 ml/min; Est GFR (African American) 75.3 ml/min; Globulin 2.9 gm/dl (2.5-4.0); Potassium 4.7 mmol/L (3.5-5.1); Total Protein 5.7 gm/dl (6.0-8.3)
[2022-06-13] MEDS: POLYETHYLENE (MIRALAX) 17 GM PACK PO SCH (08:13)
[2022-06-13] MEDS: ADVANCED PROBIOTIC 1250 MG CAPSULE PO SCH (08:13)
[2022-06-13] MEDS: METOPROLOL SUCC 50MG EXT REL TAB PO SCH ×2 (08:13→21:03)
[2022-06-13] MEDS: amLODIPine BESYLATE 5 MG TAB PO SCH (08:13)
[2022-06-13] MEDS: PSYLLIUM or GUAR GUM FIBER POWDER PACKET PO SCH (08:14)
[2022-06-13] MEDS: APIXABAN 5 MG TABLET PO SCH ×2 (08:14→21:03)
[2022-06-13] MEDS: CEFEPIME 2,000 MG in SYRINGE 0 ML IV SCH ×3 (09:05→23:20)
--- NOTE | 2022-06-13 14:19 | Hospitalist Progress Note ---
Date of Service June 13, 2022 Assessment & Plan (1) Atrial fibrillation with rapid ventricular response: (2) Open wound of left heel: (3) COVID-19: (4) Elevated troponin I level: (5) HTN (hypertension): (6) Neuropathy: Plan: (1) Atrial fibrillation with rapid ventricular response: Plan: Admit to telemetry Patient recently admitted to [facility] [place] and was discharged to be cared for by his daughter who lives locally. [facility] from [facility] and [facility] where patient received care prior to going to [facility]. Patient states he does not like staying with his daughter and wants to go to a fpc to be closer to his in [place], [place]. In the ED, patient found to be in A. fib with RVR. No prior history of. [id number] score 3, w Echo of the heart showedLV is normal in size with normal systolic function. EF 50 to 55%, RV systolic function is normal, left atrium is moderately dilated, right atrium is moderately dilated, and there is moderate mitral regurgitation Patient denies any symptoms of palpitation and/or chest pain Plan: -Currently rate controlled metoprolol succinate 50 twice daily. His Eliquis is on hold for possible bone biopsy today. -Continue to monitor on telemetry. (2) Open wound of left heel s/p bone biopsy/debridement on 06/12. Acute Calcaneal Osteomyelitis Plan: Pressure ulcer of left heel, stage 3, POA Wound Cx: (+) Pseudomonas, MRSA Blood cultures: Negative Outpatient records reviewed, no mention of osteomyelitis work-up/treatment No documentation of left heel wound at the fpc back in April MRI ankle: Soft tissue ulcer of the posterior heel with acute calcaneal osteomyelitis. Plan: On daptomycin plus cefepime. . Discussed with infectious disease; recommended 6 weeks of antibiotics. Patient to undergo bone biopsy today for definitive diagnosis and to guide therapy. We will follow-up pathology results from bone biopsy to confirm diagnosis of osteomyelitis. Gram stain so far is negative. (3) COVID-19: Plan: Per the staff at [facility], patient tested positive for COVID-19 on 05/06 however this was via rapid in-house test. No documented lab result available. Tested positive on admission; currently asymptomatic No COVID treatment is required and the patient remains totally asymptomatic No shortness of breath and is saturating normally on room air No respiratory symptomsy. Stable overall On room air Completed day #5/5 Off isolation (4) Elevated troponin I level: Plan: HS trop 50.1 > 60 > 56 Likely due to demand ischemia from A. fib RVR No reports of chest pain EKG does not show any acute ST changes Elevated troponin due to demand ischemia (5) HTN (hypertension): Plan: Blood pressure on the lower side; will discontinue amlodipine and continue metoprolol. (6) Neuropathy: Plan: Continue gabapentin Per the staff at [facility], patient was undergoing nerve conduction studies to evaluate for his nonambulatory state Records requested (7) DVT prophylaxis: Plan: Eliquis (8) Discharge planning issues: Plan: CM on board SNF when medically stable (7) DVT prophylaxis: (8) Discharge planning issues: Admission and Anticipated Discharge Date Admission Date: May 31, 2022 Subjective Patient seen and examined at bedside. Is comfortable; not in any distress. Pain is well controlled on current regimen. No fever in last 24 hours. Telemetry shows a flutter with ventricular rate of 70 to 80s. Review of Systems Review of Systems: All systems reviewed & are unremarkable except as noted in Subjective Physical Exam Physical Exam: General- oriented x 3, not in distress, speaks in sentences with no effort or accessory muscle use Eyes- anicteric Neck- no JVD Lungs- clear BS bilaterally Heart- normal rate, regular rhythm; no murmurs Abdomen- normal bowel sounds, nondistended, soft, nontender Extremities- no pretibial edema, no calf tenderness Left foot-no edema, dressing in place, no bleeding or discharge Neuro- alert, oriented x 3; no gross focal neurologic deficits Skin- warm & dry Results & Data Results & Data ([facility]) Vital Signs (Past 12 Hours) Vital Signs Temp Pulse Pulse Resp BP Pulse Ox O2 Del Method 06/13/22 11:26 36.4 C L 64 13 98/61 L 98 Room Air 06/13/22 10:24 Room Air 06/13/22 10:14 65 06/13/22 07:37 36.4 C L 78 16 126/79 95 Room Air 06/13/22 03:06 36.6 C 74 14 120/72 96 Room Air Laboratory Results Laboratory Results WBC 6.93 K/ul (4.8-10.8) 06/13/22 06:15 RBC 4.10 M/uL (4.63-6.08) L 06/13/22 06:15 Hgb 12.7 g/dl (14.0-18.0) L 06/13/22 06:15 Hct 38.4 % (40.1-51.0) L 06/13/22 06:15 MCV 93.7 fL (80.0-100.0) 06/13/22 06:15 MCH 31.0 pg (25.0-34.0) 06/13/22 06:15 MCHC 33.1 g/dL (32.0-36.0) 06/13/22 06:15 RDW Std Deviation 51.0 fL (36.4-46.3) H 06/13/22 06:15 RDW Coeff of Drake 14.7 % (11.5-14.5) H 06/13/22 06:15 Plt Count 236 K/uL (130-400) 06/13/22 06:15 MPV 10.0 fL (9.4-12.4) 06/13/22 06:15 Immature Gran % (Auto) 1.6 % 06/13/22 06:15 Neut % (Auto) 67.4 % 06/13/22 06:15 Lymph % (Auto) 15.9 % 06/13/22 06:15 Irion % (Auto) 10.4 % 06/13/22 06:15 Eos % (Auto) 3.3 % 06/13/22 06:15 Baso % (Auto) 1.4 % 06/13/22 06:15 Neut # (Auto) 4.67 K/uL (1.4-6.5) 06/13/22 06:15 Lymph # (Auto) 1.10 K/uL (1.2-3.4) L 06/13/22 06:15 Irion # (Auto) 0.72 K/uL (0.24-0.82) 06/13/22 06:15 Eos # (Auto) 0.23 K/uL (0-0.50) 06/13/22 06:15 Baso # (Auto) 0.10 K/uL (0-0.2) 06/13/22 06:15 Immature Gran # (Auto) 0.11 K/uL (0.00-0.02) H 06/13/22 06:15 ESR 45 mm/hr (0-20) H 06/12/22 07:06 APTT 55.5 Seconds (21.0-31.0) H* 06/01/22 04:14 PTT Ratio 2.0 06/01/22 04:14 Sodium 136 mmol/L (136-145) 06/13/22 06:15 Potassium 4.7 mmol/L (3.5-5.1) 06/13/22 06:15 Chloride 102 mmol/L (98-107) 06/13/22 06:15 Carbon Dioxide 32 mmol/L (21-32) 06/13/22 06:15 Anion Gap 2 (3-11) L 06/13/22 06:15 BUN 30 mg/dl (6-23) H 06/13/22 06:15 Creatinine 1.03 mg/dl (0.6-1.4) 06/13/22 06:15 Est Cr Clr Drug Dosing 58.3 ml/min 06/13/22 06:15 Est GFR ( Amer) 75.3 ml/min 06/13/22 06:15 Est GFR (Non-Af Amer) 65.0 ml/min 06/13/22 06:15 BUN/Creatinine Ratio 29.1 (10-20) H 06/13/22 06:15 Glucose 89 mg/dl (70-99(Fasting)) 06/13/22 06:15 POC Glucose 163 mg/dl (70-99) H 06/10/22 13:44 Lactate 1.7 mmol/L (0.4-2.0) 05/31/22 12:21 Calcium 8.8 mg/dl (8.5-10.1) 06/13/22 06:15 Phosphorus 3.1 mg/dl (2.5-4.9) 06/02/22 05:39 Magnesium 1.9 mg/dl (1.7-2.4) 06/02/22 05:39 Total Bilirubin 0.4 mg/dl (0.2-1.0) 06/13/22 06:15 AST 17 U/L (13-39) 06/13/22 06:15 ALT 11 U/L (7-52) 06/13/22 06:15 Alkaline Phosphatase 76 U/L (34-104) 06/13/22 06:15 Total Creatine Kinase 23 U/L (30-223) L 06/12/22 07:06 Troponin I High Sens 56.8 pg/ml (0-20) H* 05/31/22 23:34 C-Reactive Protein 1.64 mg/dl (0-0.5) H 06/12/22 07:06 Total Protein 5.7 gm/dl (6.0-8.3) L 06/13/22 06:15 Albumin 2.8 gm/dl (3.4-5.0) L 06/13/22 06:15 Globulin 2.9 gm/dl (2.5-4.0) 06/13/22 06:15 Albumin/Globulin Ratio 1.0 (0.9-2) 06/13/22 06:15 TSH 1.197 uIu/ml (0.300-4.500) 05/31/22 12:21 SARS-CoV-2, RNA, NAAT POSITIVE (NEGATIVE) A* 05/31/22 12:30 Impressions Foot X-Ray 05/31/22 12:03 XR foot LT min 3V routine CLINICAL HISTORY: heel wound. Assess for osteomyelitis. COMPARISON STUDY: None. FINDINGS: There is a 3 cm skin ulceration within the posterior heel. No underlying bony destruction to suggest an osteomyelitis. Small plantar and posterior calcaneal spurs. Calcific densities at the distal Achilles tendon and proximal plantar fascia which are likely chronic. No acute fracture or dislocation within the left foot. The Lisfranc joint is intact. Mild degenerative changes are noted. IMPRESSION: 1. A 3 cm skin ulceration at the posterior heel. 2. No bony destruction to suggest an osteomyelitis. ACT 112: Negative or not required by law. Electronically signed by: Lefty Small M.D. 05/31/2022 12:42 PM Chest X-Ray 06/04/22 09:04 XR chest 1V portable HISTORY: covid infection, r/o pneumonia COMPARISON: None. FINDINGS: No pneumothorax. No pleural effusions. There is mild interstitial thickening at the lung bases. There are low lung volumes. The cardiac silhouette is mildly enlarged. There are calcified left hilar lymph nodes. IMPRESSION: 1. Mild interstitial prominence at the lung bases. This is likely due to vascular crowding from the low lung volumes. A low-grade interstitial pneumonitis could also have a similar appearance. 2. Mild cardiomegaly. ACT 112: Negative or not required by law. Electronically signed by: Lefty Small M.D. 06/04/2022 1:24 PM Ankle MRI 06/10/22 17:39 MR ankle LT wo/w con HISTORY: 87 years-old Male heel wound, r/o osteomyelitis chronic soft tissue wound of the hindfoot. COMPARISON: Left foot radiographs 05/31/2022 TECHNIQUE: Multiplanar multisequence MRI of the left ankle was obtained both with and without the use of 9 cc Gadavist FINDINGS: Motion degraded exam. 4 cm soft tissue ulceration of the posterior midline heel. There is skin thickening with moderate adjacent subcutaneous edema suggestive of cellulitis. No abscess. There is moderate marrow edema involving the posterior calcaneal body with decreased T1 marrow signal and enhancement with posterior cortical irregularity notably involving the mid and posterolateral aspects seen best on the T1 series. Cortical erosion measures up to 2.2 cm transverse on image 31 series 11. No additional bony erosion or significant marrow edema identified. Atrophy of the intrinsic musculature suggestive of chronic denervation change. Mild tenosynovitis of the peroneal tendons. There is moderate thickening of the distal insertional Achilles tendon with areas of high-grade partial-thickness tearing noted both medially and laterally extending up to 2 cm in length. No full-thickness tear or tendon retraction. The remaining tendons and ligaments appear intact. Moderate thickening of the plantar fascia, notably within the medial cord with large plantar calcaneal enthesophyte. Findings are compatible with chronic plantar fasciitis Mild multifocal osteoarthritis. IMPRESSION: 1. Motion degraded exam. 2. Soft tissue ulcer of the posterior heel with acute calcaneal osteomyelitis . 3. Cellulitis without abscess. 4. Mild peroneal tenosynovitis. ACT 112: Negative or not required by law. The above report was generated using voice recognition software. It may contain grammatical, syntax or spelling errors. Electronically signed by: Kai Vu M.D. 06/11/2022 2:46 PM (1) Open wound of left heel Encounter type: initial encounter Qualified Code(s): S91.302A - Unspecified open wound, left foot, initial encounter
[2022-06-13] MEDS: DAPTOmycin 575 MG in SYRINGE 0 ML IV SCH (17:31)
[2022-06-13] MEDS: GABAPENTIN 600 MG TAB PO SCH (21:03)
[2022-06-13] MEDS: FINASTERIDE 5 MG TAB PO SCH (21:03)
[2022-06-13] MEDS: traMADol HCL 50 MG TABLET PO PRN (23:13)
[2022-06-13] MEDS: MELATONIN 3 MG TAB PO PRN (23:13)
[2022-06-14 06:25] LABS: Basophils # (auto) 0.08 K/uL (0-0.2); Basophils % (auto) 1.2 %; Eosinophils # (auto) 0.22 K/uL (0-0.50); Eosinophils % (auto) 3.3 %; Hematocrit (blood only) 39.2 % (40.1-51.0); Hemoglobin 12.8 g/dl (14.0-18.0); Immature Granulocytes # (auto) 0.09 K/uL (0.00-0.02); Immature Granulocytes % (auto) 1.3 %; Lymphocytes # (auto) 1.35 K/uL (1.2-3.4); Lymphocytes % (auto) 20.2 %; Mean Corpuscular Hemoglobin 30.8 pg (25.0-34.0); Mean Corpuscular Hgb Conc 32.7 g/dL (32.0-36.0); Mean Corpuscular Volume 94.5 fL (80.0-100.0); Monocytes # (auto) 0.68 K/uL (0.24-0.82); Monocytes % (auto) 10.2 %; Neutrophils # (auto) 4.26 K/uL (1.4-6.5); Neutrophils % (auto) 63.8 %; Platelet Count 231 K/uL (130-400); RDW Coefficient of Variation 14.8 % (11.5-14.5); RDW Standard Deviation 50.9 fL (36.4-46.3); Red Blood Count 4.15 M/uL (4.63-6.08); White Blood Count 6.68 K/ul (4.8-10.8)
[2022-06-14 06:54] LABS: BUN Creatinine Ratio 27.9 (10-20); Calcium 9.1 mg/dl (8.5-10.1); Creatinine Clr Calc Pharmacy 53.6 ml/min; Est GFR (African American) 68.8 ml/min; Est GFR (Non-African American) 59.4 ml/min; Potassium 4.8 mmol/L (3.5-5.1)
[2022-06-14 07:43] LABS: Albumin Globulin Ratio 0.9 (0.9-2); Albumin Level 2.9 gm/dl (3.4-5.0); Bilirubin,Total 0.4 mg/dl (0.2-1.0); Globulin 3.1 gm/dl (2.5-4.0)
[2022-06-14] MEDS: CEFEPIME 2,000 MG in SYRINGE 0 ML IV SCH ×2 (08:08→19:52)
[2022-06-14] MEDS: APIXABAN 5 MG TABLET PO SCH ×2 (08:08→19:51)
[2022-06-14] MEDS: METOPROLOL SUCC 50MG EXT REL TAB PO SCH ×2 (08:08→19:51)
[2022-06-14] MEDS: ADVANCED PROBIOTIC 1250 MG CAPSULE PO SCH (08:08)
[2022-06-14] MEDS: POLYETHYLENE (MIRALAX) 17 GM PACK PO SCH (08:08)
[2022-06-14] MEDS: PSYLLIUM or GUAR GUM FIBER POWDER PACKET PO SCH (08:08)
--- NOTE | 2022-06-14 13:55 | Hospitalist Progress Note ---
Date of Service June 14, 2022 Assessment & Plan (1) Atrial fibrillation with rapid ventricular response: (2) Open wound of left heel: (3) COVID-19: (4) Elevated troponin I level: (5) HTN (hypertension): (6) Neuropathy: Plan: (1) Atrial fibrillation with rapid ventricular response: Plan: Admit to telemetry Patient recently admitted to [facility] at [place] and was discharged to be cared for by his daughter who lives locally. [facility] from [facility] where patient received care prior to going to [facility]. Patient states he does not like staying with his daughter and wants to go to a alf to be closer to his in [place], [place]. In the ED, patient found to be in A. fib with RVR. No prior history of. [id number] score 3, w Echo of the heart showedLV is normal in size with normal systolic function. EF 50 to 55%, RV systolic function is normal, left atrium is moderately dilated, right atrium is moderately dilated, and there is moderate mitral regurgitation Patient denies any symptoms of palpitation and/or chest pain Plan: -Currently rate controlled metoprolol succinate 50 twice daily. His Eliquis is on hold for possible bone biopsy today. -Continue to monitor on telemetry. (2) Open wound of left heel s/p bone biopsy/debridement on 06/12. Acute Calcaneal Osteomyelitis Plan: Pressure ulcer of left heel, stage 3, POA Wound Cx: (+) Pseudomonas, MRSA Blood cultures: Negative Outpatient records reviewed, no mention of osteomyelitis work-up/treatment No documentation of left heel wound at the alf back in April MRI ankle: Soft tissue ulcer of the posterior heel with acute calcaneal osteomyelitis. Plan: On daptomycin plus cefepime. . Discussed with infectious disease; recommended 6 weeks of antibiotics. Patient to undergo bone biopsy today for definitive diagnosis and to guide therapy. We will follow-up pathology results from bone biopsy to confirm diagnosis of osteomyelitis. Gram stain so far is negative. (3) COVID-19: Plan: Per the staff at [facility], patient tested positive for COVID-19 on 05/06 however this was via rapid in-house test. No documented lab result available. Tested positive on admission; currently asymptomatic No COVID treatment is required and the patient remains totally asymptomatic No shortness of breath and is saturating normally on room air No respiratory symptomsy. Stable overall On room air Completed day #5/5 Off isolation (4) Elevated troponin I level: Plan: HS trop 50.1 > 60 > 56 Likely due to demand ischemia from A. fib RVR No reports of chest pain EKG does not show any acute ST changes Elevated troponin due to demand ischemia (5) HTN (hypertension): Plan: Blood pressure on the lower side; will discontinue amlodipine and continue metoprolol. (6) Neuropathy: Plan: Continue gabapentin Per the staff at [facility], patient was undergoing nerve conduction studies to evaluate for his nonambulatory state Records requested (7) DVT prophylaxis: Plan: Eliquis (8) Discharge planning issues: Plan: CM on board SNF when medically stable (7) DVT prophylaxis: (8) Discharge planning issues: Admission and Anticipated Discharge Date Admission Date: May 31, 2022 Physical Exam Physical Exam: General- oriented x 3, not in distress, speaks in sentences with no effort or accessory muscle use Eyes- anicteric Neck- no JVD Lungs- clear BS bilaterally Heart- normal rate, regular rhythm; no murmurs Abdomen- normal bowel sounds, nondistended, soft, nontender Extremities- no pretibial edema, no calf tenderness Left foot-no edema, dressing in place, no bleeding or discharge Neuro- alert, oriented x 3; no gross focal neurologic deficits Skin- warm & dry Results & Data Results & Data ([facility]) Vital Signs (Past 12 Hours) Vital Signs Temp Pulse Pulse Resp BP BP Pulse Ox 06/14/22 11:00 36.6 C 74 18 121/80 97 06/14/22 10:52 64 06/14/22 06:56 36.6 C 57 L 18 102/65 98 06/14/22 03:07 36.6 C 76 16 113/68 94 O2 Del Method 06/14/22 11:00 Room Air 06/14/22 10:52 06/14/22 06:56 Room Air 06/14/22 03:07 Room Air (1) Open wound of left heel Encounter type: initial encounter Qualified Code(s): S91.302A - Unspecified open wound, left foot, initial encounter
--- NOTE | 2022-06-14 14:24 | Hospitalist Progress Note ---
Date of Service June 14, 2022 Assessment & Plan (1) COVID-19: (2) Elevated troponin I level: (3) HTN (hypertension): (4) Neuropathy: Plan: (1) Atrial fibrillation with rapid ventricular response: Plan: Patient recently admitted to [facility] [place] and was discharged to be cared for by his daughter who lives locally. Records requested from [facility] and [facility] where patient received care prior to going to [facility]. Patient states he does not like staying with his daughter and [place] go [place] [facility] [place] to be closer to his in [place], [place]. In the ED, patient found to be in A. fib with RVR. No prior history of. [id number] score 3, w Echo of the heart showedLV is normal in size with normal systolic function. EF 50 to 55%, RV systolic function is normal, left atrium is moderately dilated, right atrium is moderately dilated, and there is moderate mitral regurgitation Patient denies any symptoms of palpitation and/or chest pain Plan: -Currently rate controlled metoprolol succinate 50 twice daily. Eliquis resumed after the bone biopsy. -Continue to monitor on telemetry. (2) Open wound of left heel s/p bone biopsy/debridement on 06/12. Acute Calcaneal Osteomyelitis Plan: Pressure ulcer of left heel, stage 3, POA Wound Cx: (+) Pseudomonas, MRSA Blood cultures: Negative Outpatient records reviewed, no mention of osteomyelitis work-up/treatment No documentation of [place] wound [place] the [place] [facility] [place] MRI ankle: Soft tissue ulcer of the posterior heel with acute calcaneal osteomyelitis. Underwent bone biopsy on 06/12 Plan: On daptomycin plus cefepime. Discussed with infectious disease; recommended 6 weeks of antibiotics. Patient went bone biopsy on 06/12 for definitive diagnosis and to guide therapy. We will follow-up pathology results from bone biopsy to confirm diagnosis of osteomyelitis. Gram stain and culture so far is negative. (3) COVID-19: Plan: Per the staff at [facility], patient tested positive for COVID-19 on 05/06 however this was via rapid in-house test. No documented lab result available. Tested positive on admission; currently asymptomatic No COVID treatment is required and the patient remains totally asymptomatic No shortness of breath and is saturating normally on room air No respiratory symptomsy. Stable overall On room air Completed remdesivir day #5/5 Off isolation (4) Elevated troponin I level: Plan: HS trop 50.1 > 60 > 56 Likely due to demand ischemia from A. fib RVR No reports of chest pain EKG does not show any acute ST changes Elevated troponin due to demand ischemia (5) HTN (hypertension): Plan: Blood pressure on the lower side; will discontinue amlodipine and continue metoprolol. (6) Neuropathy: Plan: Continue gabapentin Per the staff at [facility], patient was undergoing nerve conduction studies to evaluate for his nonambulatory state Records requested (7) DVT prophylaxis: Plan: Eliquis (8) Discharge planning issues: Plan: CM on board SNF when medically stable (5) DVT prophylaxis: (6) Discharge planning issues: (7) Atrial fibrillation with rapid ventricular response: (8) Open wound of left heel: Admission and Anticipated Discharge Date Admission Date: May 31, 2022 Subjective Patient seen and examined at bedside. He is comfortably sitting on the bed; not in any distress. Telemetry shows a flutter with ventricular rate of 70s to 80s Review of Systems Review of Systems: All systems reviewed & are unremarkable except as noted in Subjective Physical Exam Physical Exam: General- oriented x 3, not in distress, speaks in sentences with no effort or accessory muscle use Eyes- anicteric Neck- no JVD Lungs- clear BS bilaterally Heart- normal rate, regular rhythm; no murmurs Abdomen- normal bowel sounds, nondistended, soft, nontender Extremities- no pretibial edema, no calf tenderness Left foot-no edema, dressing in place, no bleeding or discharge Neuro- alert, oriented x 3; no gross focal neurologic deficits Skin- warm & dry Results & Data Results & Data ([facility]) Vital Signs (Past 12 Hours) Vital Signs Temp Pulse Pulse Resp BP BP Pulse Ox 06/14/22 11:00 36.6 C 74 18 121/80 97 06/14/22 10:52 64 06/14/22 06:56 36.6 C 57 L 18 102/65 98 06/14/22 03:07 36.6 C 76 16 113/68 94 O2 Del Method 06/14/22 11:00 Room Air 06/14/22 10:52 06/14/22 06:56 Room Air 06/14/22 03:07 Room Air Laboratory Results Laboratory Results WBC 6.68 K/ul (4.8-10.8) 06/14/22 05:45 RBC 4.15 M/uL (4.63-6.08) L 06/14/22 05:45 Hgb 12.8 g/dl (14.0-18.0) L 06/14/22 05:45 Hct 39.2 % (40.1-51.0) L 06/14/22 05:45 MCV 94.5 fL (80.0-100.0) 06/14/22 05:45 MCH 30.8 pg (25.0-34.0) 06/14/22 05:45 MCHC 32.7 g/dL (32.0-36.0) 06/14/22 05:45 RDW Std Deviation 50.9 fL (36.4-46.3) H 06/14/22 05:45 RDW Coeff of Drake 14.8 % (11.5-14.5) H 06/14/22 05:45 Plt Count 231 K/uL (130-400) 06/14/22 05:45 MPV 10.0 fL (9.4-12.4) 06/14/22 05:45 Immature Gran % (Auto) 1.3 % 06/14/22 05:45 Neut % (Auto) 63.8 % 06/14/22 05:45 Lymph % (Auto) 20.2 % 06/14/22 05:45 [place] % (Auto) 10.2 % 06/14/22 05:45 Eos % (Auto) 3.3 % 06/14/22 05:45 Baso % (Auto) 1.2 % 06/14/22 05:45 Neut # (Auto) 4.26 K/uL (1.4-6.5) 06/14/22 05:45 Lymph # (Auto) 1.35 K/uL (1.2-3.4) 06/14/22 05:45 [place] # (Auto) 0.68 K/uL (0.24-0.82) 06/14/22 05:45 Eos # (Auto) 0.22 K/uL (0-0.50) 06/14/22 05:45 Baso # (Auto) 0.08 K/uL (0-0.2) 06/14/22 05:45 Immature Gran # (Auto) 0.09 K/uL (0.00-0.02) H 06/14/22 05:45 ESR 45 mm/hr (0-20) H 06/12/22 07:06 APTT 55.5 Seconds (21.0-31.0) H* 06/01/22 04:14 PTT Ratio 2.0 06/01/22 04:14 Sodium 136 mmol/L (136-145) 06/14/22 05:45 Potassium 4.8 mmol/L (3.5-5.1) 06/14/22 05:45 Chloride 101 mmol/L (98-107) 06/14/22 05:45 Carbon Dioxide 32 mmol/L (21-32) 06/14/22 05:45 Anion Gap 3 (3-11) 06/14/22 05:45 BUN 31 mg/dl (6-23) H 06/14/22 05:45 Creatinine 1.11 mg/dl (0.6-1.4) 06/14/22 05:45 Est Cr Clr Drug Dosing 53.6 ml/min 06/14/22 05:45 Est GFR ( Amer) 68.8 ml/min 06/14/22 05:45 Est GFR (Non-Af Amer) 59.4 ml/min 06/14/22 05:45 BUN/Creatinine Ratio 27.9 (10-20) H 06/14/22 05:45 Glucose 90 mg/dl (70-99(Fasting)) 06/14/22 05:45 POC Glucose 163 mg/dl (70-99) H 06/10/22 13:44 Lactate 1.7 mmol/L (0.4-2.0) 05/31/22 12:21 Calcium 9.1 mg/dl (8.5-10.1) 06/14/22 05:45 Phosphorus 3.1 mg/dl (2.5-4.9) 06/02/22 05:39 Magnesium 1.9 mg/dl (1.7-2.4) 06/02/22 05:39 Total Bilirubin 0.4 mg/dl (0.2-1.0) 06/14/22 05:45 AST 18 U/L (13-39) 06/14/22 05:45 ALT 12 U/L (7-52) 06/14/22 05:45 Alkaline Phosphatase 80 U/L (34-104) 06/14/22 05:45 Total Creatine Kinase 23 U/L (30-223) L 06/12/22 07:06 Troponin I High Sens 56.8 pg/ml (0-20) H* 05/31/22 23:34 C-Reactive Protein 1.64 mg/dl (0-0.5) H 06/12/22 07:06 Total Protein 6.0 gm/dl (6.0-8.3) 06/14/22 05:45 Albumin 2.9 gm/dl (3.4-5.0) L 06/14/22 05:45 Globulin 3.1 gm/dl (2.5-4.0) 06/14/22 05:45 Albumin/Globulin Ratio 0.9 (0.9-2) 06/14/22 05:45 TSH 1.197 uIu/ml (0.300-4.500) 05/31/22 12:21 SARS-CoV-2, RNA, NAAT POSITIVE (NEGATIVE) A* 05/31/22 12:30 Impressions Foot X-Ray 05/31/22 12:03 XR foot LT min 3V routine CLINICAL HISTORY: heel wound. Assess for osteomyelitis. COMPARISON STUDY: None. FINDINGS: There is a 3 cm skin ulceration within the posterior heel. No underlying bony destruction to suggest an osteomyelitis. Small plantar and posterior calcaneal spurs. Calcific densities at the distal Achilles tendon and proximal plantar fascia which are likely chronic. No acute fracture or dislocation within the left foot. The Lisfranc joint is intact. Mild degenerative changes are noted. IMPRESSION: 1. A 3 cm skin ulceration at the posterior heel. 2. No bony destruction to suggest an osteomyelitis. ACT 112: Negative or not required by law. Electronically signed by: Lefty Small M.D. 05/31/2022 12:42 PM Chest X-Ray 06/04/22 09:04 XR chest 1V portable HISTORY: covid infection, r/o pneumonia COMPARISON: None. FINDINGS: No pneumothorax. No pleural effusions. There is mild interstitial thickening at the lung bases. There are low lung volumes. The cardiac silhouette is mildly enlarged. There are calcified left hilar lymph nodes. IMPRESSION: 1. Mild interstitial prominence at the lung bases. This is likely due to vascular crowding from the low lung volumes. A low-grade interstitial pneumonitis could also have a similar appearance. 2. Mild cardiomegaly. ACT 112: Negative or not required by law. Electronically signed by: Lefty Small M.D. 06/04/2022 1:24 PM Ankle MRI 06/10/22 17:39 MR ankle LT wo/w con HISTORY: 87 years-old Male heel wound, r/o osteomyelitis chronic soft tissue wound of the hindfoot. COMPARISON: Left foot radiographs 05/31/2022 TECHNIQUE: Multiplanar multisequence MRI of the left ankle was obtained both with and without the use of 9 cc Gadavist FINDINGS: Motion degraded exam. 4 cm soft tissue ulceration of the posterior midline heel. There is skin thickening with moderate adjacent subcutaneous edema suggestive of cellulitis. No abscess. There is moderate marrow edema involving the posterior calcaneal body with decreased T1 marrow signal and enhancement with posterior cortical irregularity notably involving the mid and posterolateral aspects seen best on the T1 series. Cortical erosion measures up to 2.2 cm transverse on image 31 series 11. No additional bony erosion or significant marrow edema identified. Atrophy of the intrinsic musculature suggestive of chronic denervation change. Mild tenosynovitis of the peroneal tendons. There is moderate thickening of the distal insertional Achilles tendon with areas of high-grade partial-thickness tearing noted both medially and laterally extending up to 2 cm in length. No full-thickness tear or tendon retraction. The remaining tendons and ligaments appear intact. Moderate thickening of the plantar fascia, notably within the medial cord with large plantar calcaneal enthesophyte. Findings are compatible with chronic plantar fasciitis Mild multifocal osteoarthritis. IMPRESSION: 1. Motion degraded exam. 2. Soft tissue ulcer of the posterior heel with acute calcaneal osteomyelitis . 3. Cellulitis without abscess. 4. Mild peroneal tenosynovitis. ACT 112: Negative or not required by law. The above report was generated using voice recognition software. It may contain grammatical, syntax or spelling errors. Electronically signed by: Kai Vu M.D. 06/11/2022 2:46 PM (1) Open wound of left heel Encounter type: initial encounter Qualified Code(s): S91.302A - Unspecified open wound, left foot, initial encounter
[2022-06-14] MEDS: DAPTOmycin 575 MG in SYRINGE 0 ML IV SCH (15:25)
[2022-06-14] MEDS: FINASTERIDE 5 MG TAB PO SCH (19:51)
[2022-06-14] MEDS: GABAPENTIN 600 MG TAB PO SCH (20:01)
[2022-06-14] MEDS: ACETAMINOPHEN 325 MG TAB PO PRN (23:52)
[2022-06-14] MEDS: traMADol HCL 50 MG TABLET PO PRN (23:52)
[2022-06-14] MEDS: MELATONIN 3 MG TAB PO PRN (23:53)
--- NOTE | 2022-06-15 07:31 | Orthopedic Progress Note ---
Date of Service June 15, 2022 Assessment & Plan (1) Neuropathy: (2) Open wound of left heel: Plan: Patient seen, evaluated, and treated. Recent MRI images note possible osteomyelitis of left calcaneus due to edema noted in bone. Debridement and bone biopsy completed 06/12/22. Awaiting culture and sensitives from biopsy as well as pathology report. Pin-point growth present, reincubating biopsy. Expected course of treatment is 6 weeks IV abx therapy guided by ID. Thank you for allowing me to participate in the care of Mr. Winchester. Will continue to follow in house. Admission and Anticipated Discharge Date Admission Date: May 31, 2022 Subjective Patient seen and examined at bedside. He is comfortably sitting on the bed; not in any distress. Patient has no complaints. Review of Systems Review of Systems: All systems reviewed & are unremarkable except as noted in Subjective Physical Exam Physical Exam: INTEGUMENT: Atrophic changes noted to legs and feet. No signs or symptoms of infection were noted or reported. VASCULAR: Capillary refill time within normal limits. Absence of leg and pedal hair. Proximal distal cooling within normal limits. MUSCULOSKELETAL: No gross deformity. Digital contractures 2 through 5 adductovarus fifth toes. NEUROLOGIC: Absent epicritic sensation CONSTITUTIONAL: Patient denies constitutional symptoms PSYCH: Normal affect and demeanor Focused Exam: Wound location: Left retro calcaneal heel Wound base color and depth: Full thickness with achilles tendon exposed Wound size (cm): roughly 4.5 x 4.5 x 0.5 cm Odor: no malodor Drainage: moderate serous Undermining: none Borders: slightly macerated Results & Data ([facility]) Vital Signs (Past 12 Hours) Vital Signs Temp Pulse Pulse Resp BP Pulse Ox O2 Del Method 06/15/22 02:50 36.4 C L 75 14 108/68 93 Room Air 06/14/22 22:15 74 06/14/22 23:00 36.7 C 75 20 110/69 95 Room Air 06/14/22 21:00 O2 Del Method 06/15/22 02:50 06/14/22 22:15 06/14/22 23:00 06/14/22 21:00 Room Air (1) Open wound of left heel Encounter type: initial encounter Qualified Code(s): S91.302A - Unspecified open wound, left foot, initial encounter
[2022-06-15 08:08] LABS: Basophils # (auto) 0.07 K/uL (0-0.2); Basophils % (auto) 0.9 %; Eosinophils # (auto) 0.27 K/uL (0-0.50); Eosinophils % (auto) 3.7 %; Hematocrit (blood only) 38.2 % (40.1-51.0); Hemoglobin 12.4 g/dl (14.0-18.0); Immature Granulocytes # (auto) 0.08 K/uL (0.00-0.02); Immature Granulocytes % (auto) 1.1 %; Lymphocytes # (auto) 1.43 K/uL (1.2-3.4); Lymphocytes % (auto) 19.4 %; Mean Corpuscular Hemoglobin 30.5 pg (25.0-34.0); Mean Corpuscular Hgb Conc 32.5 g/dL (32.0-36.0); Mean Corpuscular Volume 93.9 fL (80.0-100.0); Mean Platelet Volume 9.9 fL (9.4-12.4); Monocytes # (auto) 0.72 K/uL (0.24-0.82); Monocytes % (auto) 9.7 %; Neutrophils # (auto) 4.82 K/uL (1.4-6.5); Neutrophils % (auto) 65.2 %; Platelet Count 229 K/uL (130-400); RDW Coefficient of Variation 14.9 % (11.5-14.5); RDW Standard Deviation 50.9 fL (36.4-46.3); Red Blood Count 4.07 M/uL (4.63-6.08); White Blood Count 7.39 K/ul (4.8-10.8)
[2022-06-15] MEDS: METOPROLOL SUCC 50MG EXT REL TAB PO SCH ×2 (08:28→20:52)
[2022-06-15] MEDS: APIXABAN 5 MG TABLET PO SCH ×2 (08:28→20:52)
[2022-06-15] MEDS: ADVANCED PROBIOTIC 1250 MG CAPSULE PO SCH (08:29)
[2022-06-15] MEDS: PSYLLIUM or GUAR GUM FIBER POWDER PACKET PO SCH (08:29)
[2022-06-15] MEDS: CEFEPIME 2,000 MG in SYRINGE 0 ML IV SCH ×2 (08:29→20:51)
[2022-06-15] MEDS: POLYETHYLENE (MIRALAX) 17 GM PACK PO SCH (08:29)
[2022-06-15 08:37] LABS: BUN Creatinine Ratio 31.6 (10-20); Bilirubin,Total 0.4 mg/dl (0.2-1.0); Calcium 8.8 mg/dl (8.5-10.1); Creatinine Clr Calc Pharmacy 61.2 ml/min; Potassium 4.4 mmol/L (3.5-5.1)
--- NOTE | 2022-06-15 13:16 | Hospitalist Progress Note ---
Date of Service June 15, 2022 Assessment & Plan (1) COVID-19: (2) Elevated troponin I level: (3) HTN (hypertension): (4) Neuropathy: Plan: (1) Atrial fibrillation with rapid ventricular response: Plan: Patient recently admitted to [facility] at [place] and was discharged to be cared for by his daughter who lives locally. Records requested from [facility] and [facility] where patient received care prior to going to [facility]. Patient states he does not like staying with his daughter and wants to go to a intermediate to be closer to his in [place], [place]. In the ED, patient found to be in A. fib with RVR. No prior history of. [id number] score 3, w Echo of the heart showedLV is normal in size with normal systolic function. EF 50 to 55%, RV systolic function is normal, left atrium is moderately dilated, right atrium is moderately dilated, and there is moderate mitral regurgitation Patient denies any symptoms of palpitation and/or chest pain Plan: -Currently rate controlled metoprolol succinate 50 twice daily. Eliquis resumed after the bone biopsy. -Continue to monitor on telemetry. (2) Open wound of left heel s/p bone biopsy/debridement on 06/12. Acute Calcaneal Osteomyelitis Plan: Pressure ulcer of left heel, stage 3, POA Wound Cx: (+) Pseudomonas, MRSA Blood cultures: Negative Outpatient records reviewed, no mention of osteomyelitis work-up/treatment No documentation of left heel wound at the [facility] back in April MRI ankle: Soft tissue ulcer of the posterior heel with acute calcaneal osteomyelitis. Underwent bone biopsy on 06/12 Plan: On daptomycin plus cefepime. Culture shows gram-negative bacilli; awaiting identification and sensitivity. Discussed with infectious disease; recommended 6 weeks of antibiotics. Patient went bone biopsy on 06/12 for definitive diagnosis and to guide therapy. We will follow-up pathology results from bone biopsy to confirm diagnosis of osteomyelitis. (3) COVID-19: Plan: Per the staff at [facility], patient tested positive for COVID-19 on 05/06 however this was via rapid in-house test. No documented lab result available. Tested positive on admission; currently asymptomatic No COVID treatment is required and the patient remains totally asymptomatic No shortness of breath and is saturating normally on room air No respiratory symptomsy. Stable overall On room air Completed remdes day #5/5 Off isolation (4) Elevated troponin I level: Plan: HS trop 50.1 > 60 > 56 Likely due to demand ischemia from A. fib RVR No reports of chest pain EKG does not show any acute ST changes Elevated troponin due to demand ischemia (5) HTN (hypertension): Plan: Blood pressure on the lower side; will discontinue amlodipine and continue metoprolol. (6) Neuropathy: Plan: Continue gabapentin Per the staff at [facility], patient was undergoing nerve conduction studies to evaluate for his nonambulatory state Records requested (7) DVT prophylaxis: Plan: Eliquis (8) Discharge planning issues: Plan: CM on board; Discharge when placement is avaiable. (5) DVT prophylaxis: (6) Discharge planning issues: (7) Atrial fibrillation with rapid ventricular response: (8) Open wound of left heel: Admission and Anticipated Discharge Date Admission Date: May 31, 2022 Subjective Patient seen and examined at bedside. He is comfortable; not in any distress. Telemetry shows a flutter with ventricular rate in 70s to 80s. Review of Systems Review of Systems: All systems reviewed & are unremarkable except as noted in Subjective Physical Exam Physical Exam: General- oriented x 3, not in distress, speaks in sentences with no effort or accessory muscle use Eyes- anicteric Neck- no JVD Lungs- clear BS bilaterally Heart- normal rate, regular rhythm; no murmurs Abdomen- normal bowel sounds, nondistended, soft, nontender Extremities- no pretibial edema, no calf tenderness Left foot-no edema, dressing in place, no bleeding or discharge Neuro- alert, oriented x 3; no gross focal neurologic deficits Skin- warm & dry Results & Data Results & Data ([facility]) Vital Signs (Past 12 Hours) Vital Signs Temp Pulse Resp BP Pulse Ox O2 Del Method 06/15/22 12:00 36.7 C 74 17 127/77 06/15/22 08:00 36.7 C 86 18 115/66 95 06/15/22 02:50 36.4 C L 75 14 108/68 93 Room Air Laboratory Results Laboratory Results WBC 7.39 K/ul (4.8-10.8) 06/15/22 07:45 RBC 4.07 M/uL (4.63-6.08) L 06/15/22 07:45 Hgb 12.4 g/dl (14.0-18.0) L 06/15/22 07:45 Hct 38.2 % (40.1-51.0) L 06/15/22 07:45 MCV 93.9 fL (80.0-100.0) 06/15/22 07:45 MCH 30.5 pg (25.0-34.0) 06/15/22 07:45 MCHC 32.5 g/dL (32.0-36.0) 06/15/22 07:45 RDW Std Deviation 50.9 fL (36.4-46.3) H 06/15/22 07:45 RDW Coeff of Drake 14.9 % (11.5-14.5) H 06/15/22 07:45 Plt Count 229 K/uL (130-400) 06/15/22 07:45 MPV 9.9 fL (9.4-12.4) 06/15/22 07:45 Immature Gran % (Auto) 1.1 % 06/15/22 07:45 Neut % (Auto) 65.2 % 06/15/22 07:45 Lymph % (Auto) 19.4 % 06/15/22 07:45 [place] % (Auto) 9.7 % 06/15/22 07:45 Eos % (Auto) 3.7 % 06/15/22 07:45 Baso % (Auto) 0.9 % 06/15/22 07:45 Neut # (Auto) 4.82 K/uL (1.4-6.5) 06/15/22 07:45 Lymph # (Auto) 1.43 K/uL (1.2-3.4) 06/15/22 07:45 [place] # (Auto) 0.72 K/uL (0.24-0.82) 06/15/22 07:45 Eos # (Auto) 0.27 K/uL (0-0.50) 06/15/22 07:45 Baso # (Auto) 0.07 K/uL (0-0.2) 06/15/22 07:45 Immature Gran # (Auto) 0.08 K/uL (0.00-0.02) H 06/15/22 07:45 ESR 45 mm/hr (0-20) H 06/12/22 07:06 APTT 55.5 Seconds (21.0-31.0) H* 06/01/22 04:14 PTT Ratio 2.0 06/01/22 04:14 Sodium 135 mmol/L (136-145) L 06/15/22 07:45 Potassium 4.4 mmol/L (3.5-5.1) 06/15/22 07:45 Chloride 101 mmol/L (98-107) 06/15/22 07:45 Carbon Dioxide 29 mmol/L (21-32) 06/15/22 07:45 Anion Gap 5 (3-11) 06/15/22 07:45 BUN 31 mg/dl (6-23) H 06/15/22 07:45 Creatinine 0.98 mg/dl (0.6-1.4) 06/15/22 07:45 Est Cr Clr Drug Dosing 61.2 ml/min 06/15/22 07:45 Est GFR ( Amer) 80.0 ml/min 06/15/22 07:45 Est GFR (Non-Af Amer) 69.0 ml/min 06/15/22 07:45 BUN/Creatinine Ratio 31.6 (10-20) H 06/15/22 07:45 Glucose 92 mg/dl (70-99(Fasting)) 06/15/22 07:45 POC Glucose 163 mg/dl (70-99) H 06/10/22 13:44 Lactate 1.7 mmol/L (0.4-2.0) 05/31/22 12:21 Calcium 8.8 mg/dl (8.5-10.1) 06/15/22 07:45 Phosphorus 3.1 mg/dl (2.5-4.9) 06/02/22 05:39 Magnesium 1.9 mg/dl (1.7-2.4) 06/02/22 05:39 Total Bilirubin 0.4 mg/dl (0.2-1.0) 06/15/22 07:45 AST 21 U/L (13-39) 06/15/22 07:45 ALT 14 U/L (7-52) 06/15/22 07:45 Alkaline Phosphatase 81 U/L (34-104) 06/15/22 07:45 Total Creatine Kinase 23 U/L (30-223) L 06/12/22 07:06 Troponin I High Sens 56.8 pg/ml (0-20) H* 05/31/22 23:34 C-Reactive Protein 1.64 mg/dl (0-0.5) H 06/12/22 07:06 Total Protein 6.0 gm/dl (6.0-8.3) 06/15/22 07:45 Albumin 3.0 gm/dl (3.4-5.0) L 06/15/22 07:45 Globulin 3.0 gm/dl (2.5-4.0) 06/15/22 07:45 Albumin/Globulin Ratio 1.0 (0.9-2) 06/15/22 07:45 TSH 1.197 uIu/ml (0.300-4.500) 05/31/22 12:21 SARS-CoV-2, RNA, NAAT POSITIVE (NEGATIVE) A* 05/31/22 12:30 Impressions Foot X-Ray 05/31/22 12:03 XR foot LT min 3V routine CLINICAL HISTORY: heel wound. Assess for osteomyelitis. COMPARISON STUDY: None. FINDINGS: There is a 3 cm skin ulceration within the posterior heel. No underlying bony destruction to suggest an osteomyelitis. Small plantar and posterior calcaneal spurs. Calcific densities at the distal Achilles tendon and proximal plantar fascia which are likely chronic. No acute fracture or dislocation within the left foot. The Lisfranc joint is intact. Mild degenerative changes are noted. IMPRESSION: 1. A 3 cm skin ulceration at the posterior heel. 2. No bony destruction to suggest an osteomyelitis. ACT 112: Negative or not required by law. Electronically signed by: Lefty Small M.D. 05/31/2022 12:42 PM Chest X-Ray 06/04/22 09:04 XR chest 1V portable HISTORY: covid infection, r/o pneumonia COMPARISON: None. FINDINGS: No pneumothorax. No pleural effusions. There is mild interstitial thickening at the lung bases. There are low lung volumes. The cardiac silhouette is mildly enlarged. There are calcified left hilar lymph nodes. IMPRESSION: 1. Mild interstitial prominence at the lung bases. This is likely due to vascular crowding from the low lung volumes. A low-grade interstitial pneumonitis could also have a similar appearance. 2. Mild cardiomegaly. ACT 112: Negative or not required by law. Electronically signed by: Lefty Small M.D. 06/04/2022 1:24 PM Ankle MRI 06/10/22 17:39 MR ankle LT wo/w con HISTORY: 87 years-old Male heel wound, r/o osteomyelitis chronic soft tissue wound of the hindfoot. COMPARISON: Left foot radiographs 05/31/2022 TECHNIQUE: Multiplanar multisequence MRI of the left ankle was obtained both with and without the use of 9 cc Gadavist FINDINGS: Motion degraded exam. 4 cm soft tissue ulceration of the posterior midline heel. There is skin thickening with moderate adjacent subcutaneous edema suggestive of cellulitis. No abscess. There is moderate marrow edema involving the posterior calcaneal body with decreased T1 marrow signal and enhancement with posterior cortical irregularity notably involving the mid and posterolateral aspects seen best on the T1 series. Cortical erosion measures up to 2.2 cm transverse on image 31 series 11. No additional bony erosion or significant marrow edema identified. Atrophy of the intrinsic musculature suggestive of chronic denervation change. Mild tenosynovitis of the peroneal tendons. There is moderate thickening of the distal insertional Achilles tendon with areas of high-grade partial-thickness tearing noted both medially and laterally extending up to 2 cm in length. No full-thickness tear or tendon retraction. The remaining tendons and ligaments appear intact. Moderate thickening of the plantar fascia, notably within the medial cord with large plantar calcaneal enthesophyte. Findings are compatible with chronic plantar fasciitis Mild multifocal osteoarthritis. IMPRESSION: 1. Motion degraded exam. 2. Soft tissue ulcer of the posterior heel with acute calcaneal osteomyelitis . 3. Cellulitis without abscess. 4. Mild peroneal tenosynovitis. ACT 112: Negative or not required by law. The above report was generated using voice recognition software. It may contain grammatical, syntax or spelling errors. Electronically signed by: Kai Vu M.D. 06/11/2022 2:46 PM (1) Open wound of left heel Encounter type: initial encounter Qualified Code(s): S91.302A - Unspecified open wound, left foot, initial encounter
[2022-06-15] MEDS: DAPTOmycin 575 MG in SYRINGE 0 ML IV SCH (18:18)
[2022-06-15] MEDS: GABAPENTIN 600 MG TAB PO SCH (20:52)
[2022-06-15] MEDS ORDERED: MELATONIN 3 MG TAB PO SCH (21:00)
[2022-06-15] MEDS: MELATONIN 3 MG TAB PO PRN (22:27)
[2022-06-15] MEDS: ZOLPIDEM TARTRATE 5 MG TAB PO PRN (22:27)
[2022-06-15] MEDS: ACETAMINOPHEN 325 MG TAB PO PRN (22:27)
[2022-06-15] MEDS: FINASTERIDE 5 MG TAB PO SCH (22:28)
[2022-06-16] MEDS: PSYLLIUM or GUAR GUM FIBER POWDER PACKET PO SCH (09:28)
[2022-06-16] MEDS: METOPROLOL SUCC 50MG EXT REL TAB PO SCH ×2 (09:28→19:59)
[2022-06-16] MEDS: POLYETHYLENE (MIRALAX) 17 GM PACK PO SCH (09:28)
[2022-06-16] MEDS: ADVANCED PROBIOTIC 1250 MG CAPSULE PO SCH (09:28)
[2022-06-16] MEDS: APIXABAN 5 MG TABLET PO SCH ×2 (09:28→19:56)
[2022-06-16] MEDS: CEFEPIME 2,000 MG in SYRINGE 0 ML IV SCH ×2 (09:28→17:19)
[2022-06-16] MEDS: DAPTOmycin 575 MG in SYRINGE 0 ML IV SCH (17:19)
--- NOTE | 2022-06-16 17:26 | Hospitalist Progress Note ---
Date of Service June 16, 2022 Assessment & Plan (1) COVID-19: (2) Elevated troponin I level: (3) HTN (hypertension): (4) Neuropathy: Plan: (1) Atrial fibrillation with rapid ventricular response: Plan: Patient recently admitted to [facility] [place] and was discharged to be cared for by his daughter who lives locally. Records requested from [facility] and [facility] where patient received care prior to going to [facility]. Patient states he does not like staying with his daughter and wants to go to a assisted to be closer to his in [place], [place]. In the ED, patient found to be in A. fib with RVR. No prior history of. DIZ2MC2-TBTg score 3, w Echo of the heart showedLV is normal in size with normal systolic function. EF 50 to 55%, RV systolic function is normal, left atrium is moderately dilated, right atrium is moderately dilated, and there is moderate mitral regurgitation Patient denies any symptoms of palpitation and/or chest pain Plan: -Currently rate controlled metoprolol succinate 50 twice daily. Eliquis resumed. -Continue to monitor on telemetry. (2) Open wound of left heel s/p bone biopsy/debridement on 06/12. Acute Calcaneal Osteomyelitis Plan: Pressure ulcer of left heel, stage 3, POA Wound Cx: (+) Pseudomonas, MRSA Blood cultures: Negative Outpatient records reviewed, no mention of osteomyelitis work-up/treatment No documentation of left heel wound at the assisted back in April MRI ankle: Soft tissue ulcer of the posterior heel with acute calcaneal osteom yelitis. Underwent bone biopsy on 06/12 Plan: Biopsy results reviewed; biopsies not consistent with osteomyelitis. Discussed with infectious disease; will review and get back regarding duration and route of antibiotics. Wound culture is also positive for only Pseudomonas. Will discontinue Dapto for now until final antibiotics recs. (3) COVID-19: Plan: Per the staff at [facility], patient tested positive for COVID-19 on 05/06 however this was via rapid in-house test. No documented lab result available. Tested positive on admission; currently asymptomatic No COVID treatment is required and the patient remains totally asymptomatic No shortness of breath and is saturating normally on room air No respiratory symptomsy. Stable overall On room air Completed remdesivir day #5/5 Off isolation (4) Elevated troponin I level: Plan: HS trop 50.1 > 60 > 56 Likely due to demand ischemia from A. fib RVR No reports of chest pain EKG does not show any acute ST changes Elevated troponin due to demand ischemia (5) HTN (hypertension): Plan: Blood pressure on the lower side; will discontinue amlodipine and continue metoprolol. (6) Neuropathy: Plan: Continue gabapentin Per the staff at [facility], patient was undergoing nerve conduction studies to evaluate for his nonambulatory state Records requested (7) DVT prophylaxis: Plan: Eliquis (8) Discharge planning issues: Plan: CM on board; Discharge when placement is avaiable. (5) DVT prophylaxis: (6) Discharge planning issues: (7) Atrial fibrillation with rapid ventricular response: (8) Open wound of left heel: Admission and Anticipated Discharge Date Admission Date: May 31, 2022 Subjective patient seen and examined at bedside. He is comfortable lying; not in any distress. Review of Systems Review of Systems: All systems reviewed & are unremarkable except as noted in Subjective Physical Exam Physical Exam: General- oriented x 3, not in distress, speaks in sentences with no effort or accessory muscle use Eyes- anicteric Neck- no JVD Lungs- clear BS bilaterally Heart- normal rate, regular rhythm; no murmurs Abdomen- normal bowel sounds, nondistended, soft, nontender Extremities- no pretibial edema, no calf tenderness Left foot-no edema, dressing in place, no bleeding or discharge Neuro- alert, oriented x 3; no gross focal neurologic deficits Skin- warm & dry Results & Data Results & Data ([facility]) Vital Signs (Past 12 Hours) Vital Signs Temp Pulse Resp BP Pulse Ox O2 Del Method 06/16/22 16:27 36.7 C 72 18 115/70 95 Room Air 06/16/22 12:42 Room Air 06/16/22 11:36 36.3 C L 71 18 104/66 91 Room Air 06/16/22 07:00 36.2 C L 68 18 110/66 92 Room Air Laboratory Results Laboratory Results WBC 7.39 K/ul (4.8-10.8) 06/15/22 07:45 RBC 4.07 M/uL (4.63-6.08) L 06/15/22 07:45 Hgb 12.4 g/dl (14.0-18.0) L 06/15/22 07:45 Hct 38.2 % (40.1-51.0) L 06/15/22 07:45 MCV 93.9 fL (80.0-100.0) 06/15/22 07:45 MCH 30.5 pg (25.0-34.0) 06/15/22 07:45 MCHC 32.5 g/dL (32.0-36.0) 06/15/22 07:45 RDW Std Deviation 50.9 fL (36.4-46.3) H 06/15/22 07:45 RDW Coeff of Drake 14.9 % (11.5-14.5) H 06/15/22 07:45 Plt Count 229 K/uL (130-400) 06/15/22 07:45 MPV 9.9 fL (9.4-12.4) 06/15/22 07:45 Immature Gran % (Auto) 1.1 % 06/15/22 07:45 Neut % (Auto) 65.2 % 06/15/22 07:45 Lymph % (Auto) 19.4 % 06/15/22 07:45 [place] % (Auto) 9.7 % 06/15/22 07:45 Eos % (Auto) 3.7 % 06/15/22 07:45 Baso % (Auto) 0.9 % 06/15/22 07:45 Neut # (Auto) 4.82 K/uL (1.4-6.5) 06/15/22 07:45 Lymph # (Auto) 1.43 K/uL (1.2-3.4) 06/15/22 07:45 [place] # (Auto) 0.72 K/uL (0.24-0.82) 06/15/22 07:45 Eos # (Auto) 0.27 K/uL (0-0.50) 06/15/22 07:45 Baso # (Auto) 0.07 K/uL (0-0.2) 06/15/22 07:45 Immature Gran # (Auto) 0.08 K/uL (0.00-0.02) H 06/15/22 07:45 ESR 45 mm/hr (0-20) H 06/12/22 07:06 APTT 55.5 Seconds (21.0-31.0) H* 06/01/22 04:14 PTT Ratio 2.0 06/01/22 04:14 Sodium 135 mmol/L (136-145) L 06/15/22 07:45 Potassium 4.4 mmol/L (3.5-5.1) 06/15/22 07:45 Chloride 101 mmol/L (98-107) 06/15/22 07:45 Carbon Dioxide 29 mmol/L (21-32) 06/15/22 07:45 Anion Gap 5 (3-11) 06/15/22 07:45 BUN 31 mg/dl (6-23) H 06/15/22 07:45 Creatinine 0.98 mg/dl (0.6-1.4) 06/15/22 07:45 Est Cr Clr Drug Dosing 61.2 ml/min 06/15/22 07:45 Est GFR ( Amer) 80.0 ml/min 06/15/22 07:45 Est GFR (Non-Af Amer) 69.0 ml/min 06/15/22 07:45 BUN/Creatinine Ratio 31.6 (10-20) H 06/15/22 07:45 Glucose 92 mg/dl (70-99(Fasting)) 06/15/22 07:45 POC Glucose 163 mg/dl (70-99) H 06/10/22 13:44 Lactate 1.7 mmol/L (0.4-2.0) 05/31/22 12:21 Calcium 8.8 mg/dl (8.5-10.1) 06/15/22 07:45 Phosphorus 3.1 mg/dl (2.5-4.9) 06/02/22 05:39 Magnesium 1.9 mg/dl (1.7-2.4) 06/02/22 05:39 Total Bilirubin 0.4 mg/dl (0.2-1.0) 06/15/22 07:45 AST 21 U/L (13-39) 06/15/22 07:45 ALT 14 U/L (7-52) 06/15/22 07:45 Alkaline Phosphatase 81 U/L (34-104) 06/15/22 07:45 Total Creatine Kinase 23 U/L (30-223) L 06/12/22 07:06 Troponin I High Sens 56.8 pg/ml (0-20) H* 05/31/22 23:34 C-Reactive Protein 1.64 mg/dl (0-0.5) H 06/12/22 07:06 Total Protein 6.0 gm/dl (6.0-8.3) 06/15/22 07:45 Albumin 3.0 gm/dl (3.4-5.0) L 06/15/22 07:45 Globulin 3.0 gm/dl (2.5-4.0) 06/15/22 07:45 Albumin/Globulin Ratio 1.0 (0.9-2) 06/15/22 07:45 TSH 1.197 uIu/ml (0.300-4.500) 05/31/22 12:21 SARS-CoV-2, RNA, NAAT POSITIVE (NEGATIVE) A* 05/31/22 12:30 Impressions Foot X-Ray 05/31/22 12:03 XR foot LT min 3V routine CLINICAL HISTORY: heel wound. Assess for osteomyelitis. COMPARISON STUDY: None. FINDINGS: There is a 3 cm skin ulceration within the posterior heel. No underlying bony destruction to suggest an osteomyelitis. Small plantar and posterior calcaneal spurs. Calcific densities at the distal Achilles tendon and proximal plantar fascia which are likely chronic. No acute fracture or dislocation within the left foot. The Lisfranc joint is intact. Mild degenerative changes are noted. IMPRESSION: 1. A 3 cm skin ulceration at the posterior heel. 2. No bony destruction to suggest an osteomyelitis. ACT 112: Negative or not required by law. Electronically signed by: Lefty Small M.D. 05/31/2022 12:42 PM Chest X-Ray 06/04/22 09:04 XR chest 1V portable HISTORY: covid infection, r/o pneumonia COMPARISON: None. FINDINGS: No pneumothorax. No pleural effusions. There is mild interstitial thickening at the lung bases. There are low lung volumes. The cardiac silhouette is mildly enlarged. There are calcified left hilar lymph nodes. IMPRESSION: 1. Mild interstitial prominence at the lung bases. This is likely due to vascular crowding from the low lung volumes. A low-grade interstitial pneumonitis could also have a similar appearance. 2. Mild cardiomegaly. ACT 112: Negative or not required by law. Electronically signed by: Lefty Small M.D. 06/04/2022 1:24 PM Ankle MRI 06/10/22 17:39 MR ankle LT wo/w con HISTORY: 87 years-old Male heel wound, r/o osteomyelitis chronic soft tissue wound of the hindfoot. COMPARISON: Left foot radiographs 05/31/2022 TECHNIQUE: Multiplanar multisequence MRI of the left ankle was obtained both with and without the use of 9 cc Gadavist FINDINGS: Motion degraded exam. 4 cm soft tissue ulceration of the posterior midline heel. There is skin thickening with moderate adjacent subcutaneous edema suggestive of cellulitis. No abscess. There is moderate marrow edema involving the posterior calcaneal body with decreased T1 marrow signal and enhancement with posterior cortical irregularity notably involving the mid and posterolateral aspects seen best on the T1 series. Cortical erosion measures up to 2.2 cm transverse on image 31 series 11. No additional bony erosion or significant marrow edema identified. Atrophy of the intrinsic musculature suggestive of chronic denervation change. Mild tenosynovitis of the peroneal tendons. There is moderate thickening of the distal insertional Achilles tendon with areas of high-grade partial-thickness tearing noted both medially and laterally extending up to 2 cm in length. No full-thickness tear or tendon retraction. The remaining tendons and ligaments appear intact. Moderate thickening of the plantar fascia, notably within the medial cord with large plantar calcaneal enthesophyte. Findings are compatible with chronic plantar fasciitis Mild multifocal osteoarthritis. IMPRESSION: 1. Motion degraded exam. 2. Soft tissue ulcer of the posterior heel with acute calcaneal osteomyelitis . 3. Cellulitis without abscess. 4. Mild peroneal tenosynovitis. ACT 112: Negative or not required by law. The above report was generated using voice recognition software. It may contain grammatical, syntax or spelling errors. Electronically signed by: Kai Vu M.D. 06/11/2022 2:46 PM (1) Open wound of left heel Encounter type: initial encounter Qualified Code(s): S91.302A - Unspecified open wound, left foot, initial encounter
[2022-06-16] MEDS: GABAPENTIN 600 MG TAB PO SCH (19:59)
[2022-06-16] MEDS: FINASTERIDE 5 MG TAB PO SCH (19:59)
[2022-06-16] MEDS: ZOLPIDEM TARTRATE 5 MG TAB PO PRN (22:10)
[2022-06-16] MEDS: traMADol HCL 50 MG TABLET PO PRN (22:12)
[2022-06-16] MEDS: MELATONIN 3 MG TAB PO PRN (22:14)
[2022-06-17] MEDS: CEFEPIME 2,000 MG in SYRINGE 0 ML IV SCH ×2 (02:23→11:18)
[2022-06-17] MEDS: APIXABAN 5 MG TABLET PO SCH (08:06)
[2022-06-17] MEDS: POLYETHYLENE (MIRALAX) 17 GM PACK PO SCH (08:06)
[2022-06-17] MEDS: METOPROLOL SUCC 50MG EXT REL TAB PO SCH (08:06)
[2022-06-17] MEDS: PSYLLIUM or GUAR GUM FIBER POWDER PACKET PO SCH (08:07)
[2022-06-17] MEDS: ADVANCED PROBIOTIC 1250 MG CAPSULE PO SCH (08:07)
--- NOTE | 2022-06-17 16:11 | Discharge Summary ---
Date of Service June 17, 2022 Admission HPI Per Admitting Provider 87 year old male with PMH HTN, bedbound status, neuropathy, left heel wound, BPH, and other problems listed below who presents to the ED with left heel wound. There are no outpatient records available to me at this time. According to the patient, he was admitted to [facility] [place] due to inability to care for himself. I spoke to the staff at [facility] who stated the patient was bedbound and lift dependent. He was being worked up for neuropathy of the lower extremities as a cause for his ambulatory dysfunction. He also had a left heel wound while he was there and was being seen by wound care. The plan was to transition the patient to long-term care at [facility] however patient's daughter arrived on 05/10 and stated that she wanted to take the patient home with her to care for him. The staff at [facility] state that the patient tested positive for COVID-19 on 05/06 via rapid test. Patient states that he does not like staying with his daughter. He would like to go back to a senior living that is closer to his who is in [facility]. It seems as though patient had debridement of his left heel wound at the [facility] last week. Patient was placed on a course of antibiotics however patient reports that he made him nauseous, therefore they were discontinued. Patient especially offers no complaints today. He denies chest pain, palpitations, shortness of breath. No lightheadedness, dizziness, diaphoresis, syncopal events. He denies abdominal pain, nausea, vomiting, diarrhea. No fevers or chills. Denies urinary symptoms. In the ED, patient was found to be in atrial fibrillation with RVR. Labs show HS troponin 50.1, otherwise unremarkable. Patient tested positive for COVID-19. No signs of osteomyelitis on left heel x-ray. Patient was given IV metoprolol 5 mg, IV Zosyn Admission Exam Per Admitting Provider No apparent distress at rest Hemodynamically stable but noted to have tachycardia of 115/min Chest-clear to auscultate bilaterally Heart-S1-S2, irregularly irregular Abdomen-benign Extremities-trace to no edema bilaterally but left heel has a deep wound about stage III with tissue that may need debridement FLORAL ASSISTANT-alert, awake and oriented x3 Principal Diagnosis COVID-19 infection Atrial fibrillation with RVR Left heel wound, osteomyelitis ruled out Elevated high-sensitivity troponin Discharge Exam General- oriented x 3, not in distress, speaks in sentences with no effort or accessory muscle use Eyes- anicteric Neck- no JVD Lungs- clear BS bilaterally Heart- normal rate, regular rhythm; no murmurs Abdomen- normal bowel sounds, nondistended, soft, nontender Extremities- no pretibial edema, no calf tenderness Left foot-no edema, dressing in place, no bleeding or discharge Neuro- alert, oriented x 3; no gross focal neurologic deficits Skin- warm & dry Discharge Data Allergies Allergy/AdvReac Type Severity Reaction Status Date / Time atorvastatin Allergy Unknown Unverified 05/31/22 14:45 Consultations 05/31/22 13:39 ED Decision to Admit Stat 05/31/22 14:47 HIM [Consult Health Information Management] Stat 05/31/22 15:08 Consult Cardiology Routine Consult Podiatry Routine 06/05/22 08:49 Consult Infectious Diseases Routine 06/05/22 08:51 HIM [Consult Health Information Management] Routine 06/09/22 16:31 Consult Health Information Management Routine Procedures Performed Operation Date: 06/12/22 12:40 Actual Procedures p Wound debridement and Bone Biopsy, Left foot(Left) - Khoa Kay DPM, MS Ordered Studies 06/10/22 17:39 MR ankle LT wo/w con Routine Hospital Course (1) COVID-19: (2) Elevated troponin I level: (3) HTN (hypertension): (4) Neuropathy: (5) DVT prophylaxis: (6) Discharge planning issues: (7) Atrial fibrillation with rapid ventricular response: (8) Open wound of left heel: Plan Patient is a 87-year-old male with past medical history of hypertension, neuropathy, bedbound due to neuropathy presented to the ED for evaluation of left heel wound. He was admitted to [facility] [place] due to inability to take care of himself. He was tested positive for COVID on May 06 by rapid test. On presentation to the ED, patient was found to have atrial fibrillation with rapid ventricular rate. He was also found to have left heel pressure ulcer. Patient was admitted to telemetry floor for further evaluation and treatment. For the atrial fibrillation, patient was started on metoprolol and Eliquis. His ventricular rate was well controlled on that regimen. Cardiology was consulted during the hospitalization. Patient was started on IV antibiotic Zosyn and daptomycin for the left heel wound. Podiatry was con sulted. Patient underwent debridement which grew Pseudomonas and MRSA. He was placed on cefepime and vancomycin for it. MRI was done to rule out osteomyelitis. MRI ankle showed possible acute calcaneal osteomyelitis. Patient underwent repeat debridement and bone biopsy on 06/12 to confirm the diagnosis and guide treatment. The wound culture from the wound debridement grew Pseudomonas for which he was treated with cefepime. Histopathology was negative for osteomyelitis in the bone biopsy. Discussion was done with infectious disease regarding duration and course of the antibiotic. He was recommended to be placed on ciprofloxacin for 5 days on discharge. Patient was discharged to SNF with instruction to follow-up with a primary care doctor. Wound care instruction were provided in the discharge instruction. His daughter Angeline was communicated regarding the findings and plan during the hospitalization regularly. Total Time Total Time Spent Total Time Spent (In Minutes): 35 Total Time Includes: Examination of the Patient, Discharge Planning, Medication Reconciliation, Communication With Other Providers and Other Discharge Plan Discharge Items Patient Disposition: Transfer Senior Care Fac Reason For Visit: LEFT HEEL WOUND,NEW ONSET AFIB,COVID + Discharge Diagnosis: (1) Atrial fibrillation with rapid ventricular response: (2) Open wound of left heel s/p bone biopsy/debridement on 06/12, osteomyelitis ruled out (3) Covid 19 infection Activity: Resume your previous activity Non-emergency contact: Primary Care Provider Call non-emergency contact if: you have any medication questions and your symptoms worsen Follow-up/Referrals: PCP,NO [Primary Care Provider] - Diet: Regular Addtl Attending Provider Instructions: Wound care: 1) For Ankle -Cleanse with normal saline. Apply zainab size dap of Santyl ointment, cover the wound with Lyofoam. 4 X4 dressing on top with kelrex 2) For Buttocks- Barrier cream and reposition. Please take the medications as prescribed. Please follow up with your PCP. Take ciprofloxacin 500mg twice daily for 5 days. Pending Studies at Discharge: No Stand-Alone Forms: My [employer] Skilled Items Patient informed of condition?: Yes DNR: Yes Discharge Level of Care: Skilled Communicable Disease: No Discharge Prognosis: Stable Lines: None Urinary Catheter: No Medications and DC Order Prescriptions: New Eliquis 5 mg Tablet 5 mg PO BID Qty: 60 0RF acetaminophen 325 mg Tablet 650 mg PO Q4H PRN (Reason: pain) Qty: 30 0RF gabapentin 600 mg Tablet 600 mg PO HS Qty: 30 0RF polyethylene glycol 3350 [Miralax] 17 gram Powder In Packet 17 g PO DAILY Qty: 30 0RF metoprolol succinate 50 mg Tablet Extended Release 24 Hr 50 mg PO BID Qty: 60 0RF melatonin 3 mg Tablet 6 mg PO HS PRN (Reason: sleep) Qty: 60 0RF magnesium hydroxide [Milk of Magnesia] 400 mg/5 mL Suspension 30 ml PO Q6H PRN (Reason: constipation) Qty: 355 0RF finasteride [Proscar] 5 mg Tablet 5 mg PO HS Qty: 30 0RF Advanced Probiotic 625 mg (10 billion cell) Capsule 2 cap PO DAILY Qty: 30 0RF ciprofloxacin HCl [Cipro] 500 mg tablet 500 mg PO BID Qty: 10 0RF Continued amlodipine 2.5 mg Tablet 2.5 mg PO DAILY Qty: 30 0RF aspirin 81 mg Tablet,Delayed Release (Dr/Ec) 81 mg PO DAILY Qty: 30 0RF Discontinued finasteride 5 mg Tablet 5 mg PO HS gabapentin 300 mg Capsule 600 mg PO HS metoprolol succinate 50 mg Tablet Extended Release 24 Hr 50 mg PO BID Lactobacillus acidophilus Tablet,Chewable 2 tab PO DAILY Discharge Orders: Discharge Order (Routine); Ordered 06/17/22 Ordered By: Jessee Lundberg Admission Data Admit Date/Time: 05/31/22 13:55 Attending Provider: Jessee Lundberg Admit Provider: Woodrow Espino Primary Care Provider: PCP,NO Other Providers: [place] ; Woodrow Espino ; Gerson Ervin ; Khoa Kay ; Edin Esteves ; Nuzhat Lopez ; Alvin Spencer I. ; Gildardo Tavares II ; Rosanna Garrido ; Elias Aguilar ; Juancarlos Benson Other Interventions: Discharge Summary Assessment (RN) Last Done: 06/17/22 13:33
== END 2022-06-17 14:05 | DRG 264 ==
LOC: ED 11:41 → SUATTDRO 13:55 → 2S 13:55